=== PATIENT | male | born 1935 | race Two or more races ===

== ENCOUNTER 2019-12-14 07:16 | Inpatient (IN) | payer MEDICAID ==
[~2019-12-14] VITALS: Ht 170.2 cm; Wt 76.2 kg
--- NOTE | 2019-12-14 07:24 | NUR ---
PT SATTING 76% ON 6L/MIN NC. PLACED ON NON REBREATHER MASK ERMD DERDERIAN AWARE.
--- NOTE | 2019-12-14 07:25 | NUR ---
DR DEVRIES AT BEDSIDE FOR EVAL.
[2019-12-14 07:43] LABS: BASOPHILS % (AUTO) 0.2 % (0.0-2.0); HEMATOCRIT 43 % (39-51); HEMOGLOBIN 14.4 g/dL (13.5-17.5); LYMPHOCYTES # (AUTO) 0.6 /CMM (0.8-4.8); LYMPHOCYTES % (AUTO) 8.9 % (20.0-44.0); MEAN CORPUSCULAR HGB CONC 34 g/dl (31.0-36.0); MEAN CORPUSCULAR VOLUME 90 fL (80-96); MONOCYTES # (AUTO) 0.6 /CMM (0.1-1.30); MONOCYTES % (AUTO) 8.9 % (2.0-12.0); PLATELET COUNT (AUTO) 182 /CMM (150-450); RED BLOOD CELL COUNT(AUTO) 4.74 MIL/uL (4.5-6.0); WHITE BLOOD COUNT (AUTO) 7.3 K/uL (4.3-11.0)
--- NOTE | 2019-12-14 07:52 | NUR ---
RADIOLOGY AT BEDSIDE FOR CHEST XRAY.
[2019-12-14 07:57] LABS: CALCIUM, SERUM 8.2 mg/dL (8.5-10.1); CARBON DIOXIDE 21 mmol/L (21-32); CHLORIDE 88 mmol/L (98-107); CREATININE 1.1 mg/dL (0.6-1.3); GLUCOSE 224 mg/dL (74-106); SODIUM SERUM 121 mmol/L (136-145); UREA NITROGEN, BLOOD 26 mg/dL (7-18)
[2019-12-14 08:03] LABS: ALANINE AMINOTRANSFERASE 31 U/L (12-78); ALBUMIN 2.8 g/dL (3.4-5.0); ALKALINE PHOSPHATASE 96 U/L (46-116); ASPARTATE AMINOTRANSFERASE 62 U/L (15-37); BILIRUBIN,DIRECT 0.3 mg/dL (0.0-0.2); BILIRUBIN,TOTAL 0.7 mg/dL (0.2-1.0)
[2019-12-14] MEDS ORDERED: IV NS 0.9% 1,000 ML IV ONE (08:05)
[2019-12-14] MEDS ORDERED: CEFTRIAXONE 1GM BAG (ER ONLY) 50 ML IV ONE (08:12)
[2019-12-14] MEDS ORDERED: DEXAMETHASONE SOD PHOSPHATE 10 MG/ML VIAL ONE (08:12)
[2019-12-14] MEDS ORDERED: AZITHROMYCIN 500 MG in IV D5W 250 ML IV ONE (08:30)
[2019-12-14] MEDS ORDERED: CEFTRIAXONE 1 G in IV D5W 50 ML IV ONE (08:30)
[2019-12-14] MEDS ORDERED: DEXAMETHASONE SOD PHOSPHATE 10 MG/ML VIAL IV ONE (08:30)
--- NOTE | 2019-12-14 08:32 | NUR ---
PANEL ON-CALL PAGED
[2019-12-14] MEDS ORDERED: METF-442 PO (09:05)
[2019-12-14 09:17] LABS: C-REACTIVE PROTEIN 27.4 mg/dL (0.0-0.9)
--- NOTE | 2019-12-14 09:23 | NUR ---
room [id number]
[2019-12-14 09:38] LABS: APPEARANCE,URINE Clear (CLEAR); BILIRUBIN,URINE Negative (NEGATIVE); BLOOD, URINE Small Ery/uL (NEGATIVE); COLOR,URINE Yellow (YELLOW); KETONES,URINE 40 (NEGATIVE); LEUKOCYTE ESTERASE ,URINE Negative (NEGATIVE); NITRITE, URINE Negative (NEGATIVE); PH,URINE 5.5 (5.0-8.0); PROTEIN,URINE 100 mg/dl (NEGATIVE); UGLUCOSE 500 MG/DL mg/dL (NEGATIVE)
[2019-12-14 09:40] LABS: BACTERIA,URINE Few /HPF (None Seen); SQUAMOUS EPITHELIAL CELL,UR Few /HPF (None Seen)
--- NOTE | 2019-12-14 09:46 | NUR ---
Paty barry in [facility] - 12/14/19 at 1006 by VINOD REPORT GIVEN TO AMBER EDWARDS AWAITING TRANSFER TO [facility].
--- NOTE | 2019-12-14 09:46 | NUR ---
REPORT GIVEN TO AMBER JON. PT AWAITING TRANSFER TO FLOOR.
[2019-12-14] MEDS ORDERED: DEXTROSE 50%-WATER 50 ML DISP.SYRIN IV PRN (10:30)
[2019-12-14] MEDS ORDERED: ONDANSETRON HCL/PF 4 MG/2 ML VIAL IVP PRN (10:30)
[2019-12-14] MEDS ORDERED: MAG HYDROX/AL HYDROX/SIMETH 30 ML UDC PO PRN (10:30)
--- NOTE | 2019-12-14 10:30 | NUR ---
RN TELE1 - OPENING. REPORT RECIED FROM ER PATIENT A/O 1 MOROCCAN SPEAKING AT TIMES CONFUSED FOLLOWS COMMANDS. PATIENT ON ROUSTABOUT PUSHER IN THE 90S. PATIENT SIMPLE MASK 5L PATIENT HAS URINAL AT BED SIDE. R HAND 2 WITH 75 ML/HR NO SIGNS OF INFILTRATION PATIENT HAS BILATERAL CRACKELS WORSE ON THE RIGHT SIDE . BED LOCKED LOWEST POSITION CALL LIGHT WITH IN REACH AL LSAFETY MEASURES IMPLEMENTED PER HOSPITAL POLCY
[2019-12-14 11:00] VITALS: BP 123/71
[2019-12-14] MEDS: ENOXAPARIN SODIUM 40 MG/0.4 ML DISP.SYRIN SQ SCH (11:51)
[2019-12-14] MEDS: BLOOD SUGAR DIAGNOSTIC 1 EACH STRIP VI SCH ×3 (13:23→21:41)
[2019-12-14] MEDS: IV NS 0.9% 1,000 ML IV PRN ×2 (13:24→23:51)
[2019-12-14] MEDS: INSULIN REGULAR, HUMAN 100 UNIT/ML 3 ML VIAL SQ PRN ×2 (13:25→22:37)
[2019-12-14] MEDS: *INSULIN REGULAR(HUMULIN R)HUM 100 UNIT/ML VIAL SQ PRN (17:47)
--- NOTE | 2019-12-14 18:26 | NUR ---
RN TELE1 NO SIGNIFICANT CHANGE ON PATIENT CONDITION, NO PAIN AT THIS TIME , PATIENT SATURATING >95 % . VITALS STABLE AT THIS TIME BED LOCKED LOWEST POSITION CALL LIGHT WITH IN REACH ALL SAFEY MEASUURES IMPLEMENTED PER HOSPITAL POLICY
--- NOTE | 2019-12-14 19:50 | NUR ---
RN OPENING NOTE RECEIVED PT IN BED RESTING COMFORTABLY. AOX4, SPEAKS BULGARIAN ONLY, RESPONDS APPROPRIATELY. PATIENT IN NO S/SX OF ACUTE DISTRESS AT THIS TIME. PATIENT'S BREATHING IS EVEN AND UNLABORED. PATIENT IS ON 5 L OF OXYGEN VIA MASK; TOLERATING WELL. PATIENT ON TELE MONITOR READING SR, HR IS @90. ABLE TO CONSUME ABOUT 100% OF MEAL. NOTED IV SITE ON RIGHT HAND G20 WITH NS 1L RUNNING AT 75 ML/HR; PATENT AND FLUSHING WELL,NO S/S OF INFECTION OR INFILTRATION. SAFETY MEASURES IMPLEMENTED PER PROTOCOL. PATIENT BED ALARM IS ON. HEAD OF BED ELEVATED. BED IS LOCKED, IN LOWEST POSITION AND SIDE RAILS UP. CALL LIGHT WITHIN REACH OF THE PATIENT. WILL CONTINUE TO MONITOR AND REASSESS FOR ANY CHANGES.
[2019-12-14 20:00] VITALS: BP 125/75
[2019-12-14 20:26] VITALS: BP 125/75
--- NOTE | 2019-12-14 21:30 | NUR ---
2129 SUMMONED TO PATIENT'S ROOM BY PRIMARY NURSE, PATIENT SITTING UP IN BED, NOTED WITH O2 SATURATION OF 77% ON FACE MASK AT 5LPM. PATIENT ASYMPTOMATIC, NO C/O SHORTNESS OF BREATH WHEN ASKED THRU ENCODING MACHINE OPERATOR, BREATHING EVEN AND UNLABORED WITH RR 18. CHANGED PULSE OXIMETER TO ASSURE IT'S WORKING PROPERLY. STILL NOTED WITH LOW SATURATION IN THE 70S WITH GOOD WAVEFORM NOTED ON VITAL SIGNS MACHINE. PLACED PT ON 100% NRM AND ENCOURAGED PATIENT TO DO DEEP BREATHING EXERCISES. SATURATION NOTED IN THE LOW 80S BUT PATIENT CONT. TO DENY SOB AND WAS ABLE TO SPEAK TO HIS DAUGHTER THRU FACETIME WITHOUT ANY DIFFICULTY. KEPT ON HIGH CHATMAN'S POSITION FOR MAXIMUM OXYGENATION. CLOSELY MONITORING PATIENT.
--- NOTE | 2019-12-14 21:55 | NUR ---
5017 PATIENT WATCHING TV AT THIS TIME. NO SIGNS OF SOB AND CONT. TO DENY DIFFICULTY BREATHING WHEN ASKED. BREATHING EVEN AN UNLABORED. O2 SATURATION NOTED IN THE 80S ON NRM. PAGED EPIC OXYGEN EQUIPMENT TECHNICIAN AT THIS TIME. AWAITING CALL BACK.
--- NOTE | 2019-12-14 22:28 | NUR ---
2228 DR BRUCE CALLED AND MADE AWARE OF PATIENT CONDITION WITH NO ORDER, HE SAID TO CONTINUE TO MONITOR PATIENT.
[2019-12-14 22:49] LABS: URINE TOTAL PROTEIN 75.7 mg/dL (0-11.9)
--- NOTE | 2019-12-14 23:35 | NUR ---
2762 DR JEAN WAS NOTIFIED THAT PATIENT IS TACHYPNEIC NOW BREATHING IN THE 20S WITH O2 SATURATION STILL IN THE 80S ON NRM WITH ORDER TO DO STAT ABG. ORDER NOTED. RT BRIAN MADE AWARE. PATIENT REMAINS ON HIGH FOWLERS POSITION FOR MAXIMUM OXYGENATION. REMAINS VERBALLY RESPONSIVE WITH NO SIGNS OF DISTRESS NOTED.
[2019-12-15] VITALS (35 sets, daily range): BP systolic 87–162; BP diastolic 54–114
--- NOTE | 2019-12-15 00:13 | NUR ---
RT note late entry ABG taken critical results noted, ABG results given to charged RN, ABG results 7.46 27 52 19 SAO2 88
--- NOTE | 2019-12-15 00:15 | NUR ---
RN NOTE LATEST BP 152/84, HR 103
--- NOTE | 2019-12-15 00:15 | NUR ---
0015 LATEST BP 152/84, HR 103, SATURATION AT 80'S WITH REBREATHER MASK AT 15LPM. ENDORSED TO ELIZABETH RN FOR CONTINUATION OF CARE
--- NOTE | 2019-12-15 00:20 | NUR ---
0020 DR JEAN WAS NOTIFIED OF STAT ABG RESULT WITH ORDER TO TRANSFER TO ICU FOR INTUBATION. ORDER NOTED, ICU CHARGE NURSE NINI NOTIFIED, LATA LAWSON NOTIFIED AND WILL CALL ER DOCTOR FOR INTUBATION.
--- NOTE | 2019-12-15 00:35 | NUR ---
0035 PATIENT MADE AWARE OF DOCTOR'S ORDER TO TRANSFER HIM TO ICU VIA RESEARCH TECHNOLOGIST.
[2019-12-15] MEDS ORDERED: PROPOFOL 100 ML IV PRN (01:00)
--- NOTE | 2019-12-15 01:02 | NUR ---
0102 TRANSFERRED PATIENT TO ICU VIA BED ON ACLS PROTOCOL. PATIENT AWAKE AND VERBALLY RESPONSIVE. NO SIGNS OF DISTRESS NOTED.
--- NOTE | 2019-12-15 01:03 | NUR ---
RN NOTE RECEIVED PT FROM DONTRELL MART FOR CONTINUATION OF CARE.
--- NOTE | 2019-12-15 01:30 | NUR ---
RN NOTE PT WAS SEEN AND EXAMINED BY BRITTNI RIGGINS (ER DOCTOR). MD ASSESSED PT AND LOOKED OVER ABG RESULT. SPOKE TO PT ABOUT POSSIBLE INTUBATION. PT REFUSED INTUBATION DESPITE EXPLANATION OF ADVANTAGES VS RISKS. PT CURRENTLY SATTING AT 88-93% WHILE ON 15L NON REBREATHER. PER MD, OKAY TO PUT PT ON HI FLOW FOR NOW AND DO REPEAT ABG IN 1 HOUR. PT PUT ON HI FLOW 60L AND 100% FIO2. NOTIFIED DR. JEAN ABOUT PT'S CURRENT CONDITION. FAMILY NOTIFIED ABOUT PT'S STATUS.
--- NOTE | 2019-12-15 02:53 | NUR ---
RN NOTE 2ND ABG RESULTED. NOTED WITH SLIGHTLY WORSE PO2. PT CURRENTLY AWAKE AND ALERT AND WITHOUT SIGNS OF RESPIRATORY DISTRESS. CURRENTLY ON HI FLOW 60L AND FIO2 OF 100%. O2 SATURATION 93%. PT STILL REFUSING TO BE INTUBATED DESPITE EXPLANATION OF RISKS VS BENEFITS. NOTIFIED DR. JEAN.
--- NOTE | 2019-12-15 03:00 | NUR ---
RN NOTE DR. JEAN AWARE WITH NO NEW ORDERS AT THIS TIME. WILL CONTINUE TO MONITOR.
--- NOTE | 2019-12-15 03:38 | NUR ---
RT NOTE PRIMARY NURSE AND CHARGED NURSE AWARE OF ABG RESULTS FROM 12/15/2019 @ 0244. CURRENTLY WAITING FOR FURTHER ORDERS. PATIENT IS CURRENTLY TOLERATING HIGH FLOW NASAL CANNULA. NO SIGNS OF RESPIRATORY DISTRESS NOTED AT THIS TIME. SPO2 RANGE FROM 94-96% AT THIS TIME. EMERGENCY EQUIPMENT IS AT PATIENT BEDSIDE. WILL CONTINUE TO MONITOR. Addendum: 12/15/19 at 0627 by SARAH CONLEY RT Amended: Links added.
[2019-12-15 06:54] LABS: BASOPHILS % (AUTO) 0.1 % (0.0-2.0); HEMATOCRIT 40 % (39-51); HEMOGLOBIN 13.8 g/dL (13.5-17.5); LYMPHOCYTES # (AUTO) 0.6 /CMM (0.8-4.8); LYMPHOCYTES % (AUTO) 5.8 % (20.0-44.0); MEAN CORPUSCULAR HGB CONC 34 g/dl (31.0-36.0); MEAN CORPUSCULAR VOLUME 89 fL (80-96); MONOCYTES # (AUTO) 0.7 /CMM (0.1-1.30); MONOCYTES % (AUTO) 7.7 % (2.0-12.0); NEUTROPHILS # (AUTO) 8.3 /CMM (1.8-8.9); NEUTROPHILS % (AUTO) 86.4 % (43.0-81.0); PLATELET COUNT (AUTO) 232 /CMM (150-450); RED BLOOD CELL COUNT(AUTO) 4.57 MIL/uL (4.5-6.0); WHITE BLOOD COUNT (AUTO) 9.6 K/uL (4.3-11.0)
[2019-12-15 06:55] LABS: CREATININE 0.7 mg/dL (0.6-1.3); MAGNESIUM 1.5 mg/dL (1.8-2.4); PHOSPHORUS 2.1 mg/dL (2.5-4.9); POTASSIUM 4.1 mmol/L (3.5-5.1)
--- NOTE | 2019-12-15 07:30 | NUR ---
FACING SLITTER INITIAL NOTE RECEIVED PATIENT AWAKE, ALERT AND ORIENTED, FOLLOWS SIMPLE INSTRUCTIONS. NO DISTRESS NOTED. DENIES PAIN OR DISCOMFORT. ON HIGH FLOW AND NON-REBREATHER MASK. SINUS TACHY ON MONITOR. BILATERAL WRIST RESTRAINTS IN PLACE, REMOVED, WILL MONITOR CLOSELY. SKIN WARM AND DRY TO TOUCH. IVF RUNNING. ISOLATION PRECAUTIONS OBSERVED. SIDE RAILS UP AND LOCKED. BED KEPT AT LOWEST POSITION. CALL LIGHT KEPT WITHIN EASY REACH. WILL CONTINUE TO MONITOR.
--- NOTE | 2019-12-15 07:38 | NUR ---
WOUND CARE CONSULT: REVIEWED CHART, NURSING DOCUMENTATION AND PHOTOS WHICH SHOW LOWER EXTREMITY SCARRING/UNEVEN PIGMENTATION AND LEFT HAND SKIN TEAR WITH SURROUNDING DISCOLORATION, PRESENT ON ADMISSION. PT NOTED TO BE MOVING EXTREMITIES IN BED. RECOMMENDATIONS MADE FOR SKIN PROTECTION AND WOUND CARE. DISCUSSED WITH NURSING STAFF. WILL SEE PRN. CURRENT ROSENDO SCORE IS 14. MD IN AGREEMENT WITH PLAN OF CARE.
[2019-12-15] MEDS: CEFTRIAXONE 1 G in IV D5W 50 ML IV SCH (07:52)
[2019-12-15] MEDS: BLOOD SUGAR DIAGNOSTIC 1 EACH STRIP VI SCH ×4 (08:17→22:13)
[2019-12-15] MEDS: INSULIN REGULAR, HUMAN 100 UNIT/ML 3 ML VIAL SQ PRN ×3 (08:19→18:28)
[2019-12-15] MEDS: ENOXAPARIN SODIUM 40 MG/0.4 ML DISP.SYRIN SQ SCH (08:20)
--- NOTE | 2019-12-15 08:23 | NUR ---
multicultural internship note with engine assembly supervisor dr margarita syed spoke with patient regarding intubation. patient agreed to intubation if needed. will continue to monitor.
[2019-12-15] MEDS: DEXAMETHASONE SOD PHOSPHATE 10 MG/ML VIAL IV SCH (08:25)
[2019-12-15 08:26] LABS: ABG BASE EXCESS -2.3 mmol/L; ABG OXYGEN SATURATION 84.9 % (92.0-98.5); ABG PCO2 28.2 mmHg (35.0-45.0); ABG PH 7.469 (7.350-7.450); ABG PO2 47.9 mmHg (75.0-100.0); AaDO2 636.9 mmHg; COHb 0.7 % (0.5-1.5); MetHb 0.3 % (0.0-1.5); O2Hb 84.1 % (94.0-97.0); SITE, ABG Right Brachial; VENT MODE, BG HFNC
[2019-12-15 08:26] LABS: ABG PCO2 27.7 mmHg (35.0-45.0); ABG PH 7.461 (7.350-7.450); ABG PO2 52.4 mmHg (75.0-100.0); AaDO2 632.9 mmHg; COHb 0.9 % (0.5-1.5); MetHb 0.3 % (0.0-1.5); SITE, ABG Left Brachial
--- NOTE | 2019-12-15 08:30 | NUR ---
BAKERY CHEF NOTE PATIENT ATTEMPTING TO GET OUT OF BED, REORIENTED. REMOVING MONITORING DEVICES, BILATERAL WRIST RESTRAINTS PLACED BACK ON. WILL CONTINUE TO MONITOR.
[2019-12-15] MEDS: AZITHROMYCIN 500 MG in IV D5W 250 ML IV SCH (08:57)
[2019-12-15] MEDS: Magnesium 1GM/D5W 100ML PREMIX 100 ML IV SCH ×2 (10:19→11:01)
[2019-12-15] MEDS ORDERED: DEXAMETHASONE SOD PHOSPHATE 10 MG/ML VIAL IV SCH (11:00)
--- NOTE | 2019-12-15 11:00 | NUR ---
FLATWORK ASSEMBLER NOTE ABG RELAYED TO DR VÁSQUEZ WITH ORDER FOR INTUBATION. SON MOY INFORMED, WITH SCHOOL COOK USED. SON VERBALIZED UNDERSTANDING.
--- NOTE | 2019-12-15 11:09 | NUR ---
ENGINEERING AND OPERATIONS DIRECTOR NOTE UPDATES ALSO GIVEN TO GRANDDAUGHTER AREN
--- NOTE | 2019-12-15 11:50 | NUR ---
SOFTWARE ASSET MANAGER NOTE DR FRANCISCO INTUBATED PATIENT 7.5CMG 23CM AT THE LIP WITH NO COMPLICATIONS. WILL CONTINUE TO MONITOR.
[2019-12-15] MEDS: PROPOFOL 100 ML IV PRN ×3 (12:00→22:12)
[2019-12-15] MEDS: NEUTRA PHOS 1 POWD.PACKET PO SCH ×2 (13:13→21:05)
[2019-12-15] MEDS ORDERED: ROCURONIUM BROMIDE 50 MG/5 ML IV ONE (14:52)
[2019-12-15] MEDS ORDERED: ETOMIDATE 2 MG/ML VIAL IV ONE (14:52)
[2019-12-15 15:23] LABS: ABG BASE EXCESS -3.1 mmol/L; ABG OXYGEN SATURATION 98.5 % (92.0-98.5); ABG PCO2 35.7 mmHg (35.0-45.0); ABG PH 7.391 (7.350-7.450); ABG PO2 143.8 mmHg (75.0-100.0); AaDO2 533.5 mmHg; COHb 0.5 % (0.5-1.5); PEEP,BG 10 cm H2O; SITE, ABG Right Radial; VT, ABG 500 mL
[2019-12-15 18:49] LABS: THYROID STIMULATING HORMONE 0.453 uIU/mL (0.358-3.74); URIC ACID 3.1 mg/dL (2.6-7.2)
[2019-12-15] MEDS: IV NS 0.9% 1,000 ML IV PRN (18:54)
--- NOTE | 2019-12-15 19:15 | NUR ---
RN OPENING NOTE: PATIENT IN BED, SEDATED, AND INTUBATED. TOLERATING CURRENT VENT SETTINGS WELL. NO RESPIRATORY DISTRESS. NO S/S OF PAIN. ON BEDSIDE MONITOR, SHOWING NSR. ON BILATERAL SOFT WRIST RESTRAINTS. ASSESSED SKIN FOR CIRCULATION. BED LOCKED, LOW POSITION, SIDE RAILS X 2 UP. HOB ELEVATED. WILL TURN AND REPOSITION Q2H FOR SKIN INTEGRITY. WILL CONT. TO MONITOR.
[2019-12-15 19:16] LABS: C-REACTIVE PROTEIN 17.1 mg/dL (0.0-0.9)
[2019-12-15] MEDS ORDERED: NEUTRA PHOS 1 POWD.PACKET ONE (21:04)
[2019-12-15] MEDS: *INSULIN REGULAR(HUMULIN R)HUM 100 UNIT/ML VIAL SQ PRN (22:18)
[2019-12-16] VITALS (61 sets, daily range): BP systolic 79–157; BP diastolic 49–113
[2019-12-16] MEDS: PROPOFOL 100 ML IV PRN ×4 (03:10→19:55)
[2019-12-16] MEDS: IV NS 0.9% 1,000 ML IV PRN ×2 (04:22→18:24)
[2019-12-16 04:50] LABS: BASOPHILS % (AUTO) 0.1 % (0.0-2.0); HEMATOCRIT 36 % (39-51); HEMOGLOBIN 12.7 g/dL (13.5-17.5); LYMPHOCYTES # (AUTO) 0.5 /CMM (0.8-4.8); LYMPHOCYTES % (AUTO) 5.3 % (20.0-44.0); MEAN CORPUSCULAR HGB CONC 35 g/dl (31.0-36.0); MEAN CORPUSCULAR VOLUME 89 fL (80-96); MONOCYTES # (AUTO) 0.5 /CMM (0.1-1.30); MONOCYTES % (AUTO) 5.3 % (2.0-12.0); NEUTROPHILS # (AUTO) 8.2 /CMM (1.8-8.9); NEUTROPHILS % (AUTO) 89.3 % (43.0-81.0); PLATELET COUNT (AUTO) 219 /CMM (150-450); RED BLOOD CELL COUNT(AUTO) 4.02 MIL/uL (4.5-6.0); WHITE BLOOD COUNT (AUTO) 9.2 K/uL (4.3-11.0)
--- NOTE | 2019-12-16 06:40 | NUR ---
RN CLOSING NOTES: PATIENT IN BED, SEDATED, AND INTUBATED. TOLERATING CURRENT VENT SETTINGS WELL. UNLABORED BREATHING. NO S/S OF PAIN. BED LOCKED, LOW POSITION, SIDE RAILS X 2 UP. HOB ELEVATED. TURNED AND REPOSITIONED Q2H FOR SKIN INTEGRITY. WILL ENDORSE TO AM SHIFT NURSE FOR CONTINUITY OF CARE.
--- NOTE | 2019-12-16 07:41 | NUR ---
ICU/RN INITIAL NOTES,AM RECEIVED REPORT FROM NIGHT NURSE. PT INTUBATED AND SEDATED. ETT 7.5/23 CM AT THE LIP. PT ON VENT SETTINGS ORDERED BY MD, NO ACUTE DISTRESS NOTED. PT ON TELE, SINUS. GORDON CATH IN PLACE, DRAINING URINE. OG TUBE IN PLACE, CLAMPED, PLACEMENT VERIFIED. PIVS PATENT AND INTACT, NO S/S OF INFECTION OR INFILTRATION NOTED. DIPRIVAN INFUSING FOR SEDATION, WILL DO SEDATION VACATION. ALL NEEDS WILL BE ATTENDED TO, SAFETY MEASURES TAKEN, BED IN LOW POSITION, SIDE RIALS UP, BILATERAL WRIST RESTRAINTS ASSESSED PER PROTOCOL.
--- NOTE | 2019-12-16 08:20 | NUR ---
ICU/RN: SEDATION VACATION DONE. PT OPENS EYES, FOLLOWS COMMANDS. WILL RESUME SEDATION NEEDED.
--- NOTE | 2019-12-16 08:30 | NUR ---
ICU/RN: RESULTS RECEIVED FOR COVID POSITIVE. PRIMARY AND ID NOTIFIED.
[2019-12-16] MEDS: DEXAMETHASONE SOD PHOSPHATE 10 MG/ML VIAL IV SCH (08:31)
[2019-12-16] MEDS: ENOXAPARIN SODIUM 40 MG/0.4 ML DISP.SYRIN SQ SCH (08:32)
[2019-12-16] MEDS: CEFTRIAXONE 1 G in IV D5W 50 ML IV SCH (08:32)
[2019-12-16] MEDS: BLOOD SUGAR DIAGNOSTIC 1 EACH STRIP VI SCH (08:33)
[2019-12-16] MEDS: AZITHROMYCIN 500 MG in IV D5W 250 ML IV SCH (09:00)
[2019-12-16 09:03] LABS: CALCIUM, SERUM 7.1 mg/dL (8.5-10.1); CREATININE 0.7 mg/dL (0.6-1.3)
[2019-12-16 09:09] LABS: ALBUMIN 2.2 g/dL (3.4-5.0); BILIRUBIN,TOTAL 0.6 mg/dL (0.2-1.0); MAGNESIUM 2.1 mg/dL (1.8-2.4); PHOSPHORUS 2.5 mg/dL (2.5-4.9); TOTAL PROTEIN, SERUM 5.9 g/dL (6.4-8.2)
[2019-12-16] MEDS ORDERED: DEXTROSE 50%-WATER 50 ML DISP.SYRIN IV PRN (10:30)
[2019-12-16 11:49] LABS: ABG BASE EXCESS 1.1 mmol/L; ABG OXYGEN SATURATION 97.7 % (92.0-98.5); ABG PCO2 32.1 mmHg (35.0-45.0); ABG PH 7.489 (7.350-7.450); ABG PO2 107.3 mmHg (75.0-100.0); AaDO2 321.2 mmHg; COHb 0.3 % (0.5-1.5); MetHb 0.3 % (0.0-1.5); O2Hb 97.1 % (94.0-97.0); PEEP,BG 10 cm H2O; SITE, ABG Right Radial; VT, ABG 500 mL
[2019-12-16] MEDS: BLOOD SUGAR DIAGNOSTIC 1 EACH STRIP IN SCH ×2 (12:58→17:45)
[2019-12-16] MEDS: INSULIN REGULAR, HUMAN 100 UNIT/ML 3 ML VIAL SQ PRN ×2 (13:08→17:46)
[2019-12-16] MEDS: GLUCERNA 1.2 1,000 ML BOTTLE GT PRN (17:27)
--- NOTE | 2019-12-16 17:48 | NUR ---
RT NOTE Pt received on vent via ett on ordered settings. Vent is plugged into red outlet w alarms set and audible. Pt is stable. No respiratory distress noted t/o shift. Addendum: 12/16/19 at 1819 by MYNOR CATES RT Amended: Links added.
[2019-12-16] MEDS ORDERED: INVESTIGATIONAL MED MISC 1 EA in IV NS 0.9% 250 ML IV ONE (18:00)
--- NOTE | 2019-12-16 18:30 | NUR ---
ICU/RN: REMDESIVIR STARTED AT 1818, VSS, NO ADVERSE REACTIONS NOTED. WILL CONTINUE TO MONITOR
--- NOTE | 2019-12-16 18:59 | NUR ---
ICU/RN: ENDING NOTES,AM REPORT WILL BE ENDORSED TO NIGHT NURSE FOR KEN. PT INTUBATED AND SEDATED, ON VENT SETTINGS ORDERED, NO ACUTE DISTRESS NOTED. SINUS ON TELE. REMDESIVIR INFUSING, NO S/S OF ADVERSE REACTIONS NOTED. GORDON IN PLACE DRAINING YELLOW URINE. DIPRIVAN AT 30 MCG/KG/MIN. ALL NEEDS ATTENDED, SAFETY MEASURES TAKEN, BED IN LOW POSITION, SIDE RAILS UP, CALL LIGHT WITHIN REACH. BILATERAL SOFT WRIST RESTRAINTS IN PLACE, ASSESSED PER PROTOCOL. WILL CONTINUE CARE.
[2019-12-17] VITALS (50 sets, daily range): BP systolic 98–147; BP diastolic 56–92
[2019-12-17] MEDS: BLOOD SUGAR DIAGNOSTIC 1 EACH STRIP IN SCH ×4 (01:24→18:51)
[2019-12-17] MEDS: INSULIN REGULAR, HUMAN 100 UNIT/ML 3 ML VIAL SQ PRN ×4 (01:27→18:52)
[2019-12-17] MEDS: PROPOFOL 100 ML IV PRN ×5 (02:55→20:01)
[2019-12-17 04:53] LABS: BASOPHILS % (AUTO) 0.3 % (0.0-2.0); HEMATOCRIT 38 % (39-51); HEMOGLOBIN 14.2 g/dL (13.5-17.5); LYMPHOCYTES # (AUTO) 0.6 /CMM (0.8-4.8); LYMPHOCYTES % (AUTO) 7.7 % (20.0-44.0); MEAN CORPUSCULAR HGB CONC 37 g/dl (31.0-36.0); MEAN CORPUSCULAR VOLUME 91 fL (80-96); MONOCYTES # (AUTO) 0.4 /CMM (0.1-1.30); NEUTROPHILS # (AUTO) 6.9 /CMM (1.8-8.9); PLATELET COUNT (AUTO) 221 /CMM (150-450); RED BLOOD CELL COUNT(AUTO) 4.17 MIL/uL (4.5-6.0)
[2019-12-17 06:03] LABS: ALANINE AMINOTRANSFERASE 38 U/L (12-78); ALBUMIN 2.1 g/dL (3.4-5.0); ALKALINE PHOSPHATASE 100 U/L (46-116); ASPARTATE AMINOTRANSFERASE 57 U/L (15-37); BILIRUBIN,DIRECT 0.2 mg/dL (0.0-0.2); BILIRUBIN,TOTAL 0.7 mg/dL (0.2-1.0); CALCIUM, SERUM 7.4 mg/dL (8.5-10.1); CARBON DIOXIDE 22 mmol/L (21-32); CHLORIDE 99 mmol/L (98-107); CREATININE 0.5 mg/dL (0.6-1.3); FERRITIN 258 ng/mL (8-388); GLUCOSE 166 mg/dL (74-106); PHOSPHORUS 2.3 mg/dL (2.5-4.9); POTASSIUM 3.8 mmol/L (3.5-5.1); SODIUM SERUM 130 mmol/L (136-145); TOTAL PROTEIN, SERUM 5.9 g/dL (6.4-8.2); UREA NITROGEN, BLOOD 16 mg/dL (7-18)
[2019-12-17] MEDS: IV NS 0.9% 1,000 ML IV PRN ×2 (06:06→11:58)
[2019-12-17 06:16] LABS: C-REACTIVE PROTEIN 6.3 mg/dL (0.0-0.9)
--- NOTE | 2019-12-17 06:41 | NUR ---
RN notes In bed, comfortably resting with no apparent distress. Breathing even and unlabored. Vent setting well tolerated. No physical manifestation of pain or discomfort. Vital signs wnl. NO significant change of condition. Will endorse to next shift for continuity of care.
--- NOTE | 2019-12-17 06:45 | NUR ---
RN notes In bed, sedated with no apparent distress. Breathing even and unlabored. Vent setting well tolerated. No physical manifestation of pain or discomfort. Vital signs wnl. On diprivan drip at 30mcg/kg/hr tolerating well, no adverse effect noted. No significant change of condition. Will endorse to next shift for continuity of care.
[2019-12-17] MEDS: CEFTRIAXONE 1 G in IV D5W 50 ML IV SCH (08:14)
[2019-12-17] MEDS: DEXAMETHASONE SOD PHOSPHATE 10 MG/ML VIAL IV SCH (08:15)
[2019-12-17] MEDS: ENOXAPARIN SODIUM 40 MG/0.4 ML DISP.SYRIN SQ SCH (08:15)
[2019-12-17] MEDS: AZITHROMYCIN 500 MG in IV D5W 250 ML IV SCH (09:17)
[2019-12-17] MEDS ORDERED: NEUTRA PHOS 1 POWD.PACKET NG ONE (11:30)
[2019-12-17 12:52] LABS: ABG BASE EXCESS 0.1 mmol/L; ABG OXYGEN SATURATION 95.1 % (92.0-98.5); ABG PCO2 33.1 mmHg (35.0-45.0); ABG PH 7.463 (7.350-7.450); ABG PO2 71.4 mmHg (75.0-100.0); AaDO2 356.1 mmHg; COHb 0.7 % (0.5-1.5); MetHb 0.3 % (0.0-1.5); O2Hb 94.1 % (94.0-97.0); PEEP,BG 10 cm H2O; SITE, ABG Right Radial; VENT MODE, BG AC 22 500 65% +10
[2019-12-17] MEDS ORDERED: INVESTIGATIONAL MED MISC 1 EA in IV NS 0.9% 250 ML IV SCH (18:00)
[2019-12-17] MEDS: INVESTIGATIONAL MED MISC 1 EA in IV NS 0.9% 250 ML IV SCH (18:51)
--- NOTE | 2019-12-17 19:02 | NUR ---
END OF SHIFT NOTE: PT HAD AN UNEVENTFUL SHIFT. PT WAS WIDE AWAKE THIS AM, APPEARS TO BE A LITTLE SCARED, SEDATION INCREASED. PT APPEARED CALM THE REST OF THE SHIFT. NO SEDATION VACATION DONE D/T PT BEING WIDE AWAKE THIS AM. REMDESIVIR INFUSING AT THIS TIME, WILL ENDORSE TO THE NEXT SHIFT. NO BM THIS SHIFT. PT CHECKED ON HOURLY AND PRN BY NURSING STAFF.
--- NOTE | 2019-12-17 20:41 | NUR ---
RECEIVED PT INTUBATED ON VENT. 7.5 ETT SECURED AT 23CM AT THE LIP. NO RESP DISTRESS NOTED. PT TOLERATING VENT SETTINGS. SX'D FOR SML AMT OF THICK WHITE SECRETIONS. VENT ALARMS SET AND AUDIBLE. CONTINUE [facility] VENT SUPPORT. Addendum: 12/17/19 at 2042 by SARIAH PIERSON RT Amended: Links added.
[2019-12-18] VITALS (44 sets, daily range): BP systolic 70–153; BP diastolic 45–94
[2019-12-18] MEDS: PROPOFOL 100 ML IV PRN ×6 (00:10→23:13)
[2019-12-18] MEDS: INSULIN REGULAR, HUMAN 100 UNIT/ML 3 ML VIAL SQ PRN ×4 (01:00→18:45)
[2019-12-18] MEDS: BLOOD SUGAR DIAGNOSTIC 1 EACH STRIP IN SCH ×4 (01:01→18:43)
[2019-12-18 04:32] LABS: BASOPHILS % (AUTO) 0.1 % (0.0-2.0); EOSINOPHILS % (AUTO) 0.2 % (0.0-6.0); HEMATOCRIT 42 % (39-51); HEMOGLOBIN 14.3 g/dL (13.5-17.5); LYMPHOCYTES # (AUTO) 0.7 /CMM (0.8-4.8); LYMPHOCYTES % (AUTO) 7.8 % (20.0-44.0); MEAN CORPUSCULAR HGB CONC 34 g/dl (31.0-36.0); MEAN CORPUSCULAR VOLUME 90 fL (80-96); MONOCYTES # (AUTO) 0.4 /CMM (0.1-1.30); MONOCYTES % (AUTO) 4.8 % (2.0-12.0); NEUTROPHILS # (AUTO) 7.9 /CMM (1.8-8.9); NEUTROPHILS % (AUTO) 87.1 % (43.0-81.0); PLATELET COUNT (AUTO) 231 /CMM (150-450); RED BLOOD CELL COUNT(AUTO) 4.67 MIL/uL (4.5-6.0); WHITE BLOOD COUNT (AUTO) 9.1 K/uL (4.3-11.0)
[2019-12-18 04:54] LABS: C-REACTIVE PROTEIN 12.2 mg/dL (0.0-0.9)
[2019-12-18 05:02] LABS: ALBUMIN 2.2 g/dL (3.4-5.0); BILIRUBIN,DIRECT 0.2 mg/dL (0.0-0.2); BILIRUBIN,TOTAL 0.6 mg/dL (0.2-1.0); CALCIUM, SERUM 7.9 mg/dL (8.5-10.1); CREATININE 0.7 mg/dL (0.6-1.3); PHOSPHORUS 2.4 mg/dL (2.5-4.9); POTASSIUM 3.4 mmol/L (3.5-5.1)
[2019-12-18] MEDS: IV NS 0.9% 1,000 ML IV PRN (06:18)
--- NOTE | 2019-12-18 06:31 | NUR ---
RN notes Patient is sedated, resting comfortably in bed. No respiratory distress noted at the beginning of shift. Breathing even and unlabored. Vent setting well tolerated. No physical manifestation of pain or discomfort. Vital signs wnl. Noted at 0500, patient's O2sat flactuates between 89 to 94%. Noted abdominal breathing. suction moderate amount of secretion. Head of bed elevated. On diprivan drip at 50mcg/kg/hr tolerating well, no adverse effect noted. Will endorse to next shift for continuity of care.
[2019-12-18] MEDS: CEFTRIAXONE 1 G in IV D5W 50 ML IV SCH (08:26)
[2019-12-18] MEDS: AZITHROMYCIN 250 MG TABLET PO SCH (08:27)
[2019-12-18] MEDS: DEXAMETHASONE SOD PHOSPHATE 10 MG/ML VIAL IV SCH (08:27)
[2019-12-18] MEDS: ENOXAPARIN SODIUM 40 MG/0.4 ML DISP.SYRIN SQ SCH (08:29)
[2019-12-18] MEDS ORDERED: POTASSIUM CHLORIDE 20 MEQ POWDER PACKET NG SCH (09:30)
[2019-12-18] MEDS ORDERED: NEUTRA PHOS 1 POWD.PACKET GT ONE (12:00)
[2019-12-18 12:19] LABS: ABG BASE EXCESS 1.3 mmol/L; ABG OXYGEN SATURATION 90.3 % (92.0-98.5); ABG PCO2 39.5 mmHg (35.0-45.0); ABG PO2 58.2 mmHg (75.0-100.0); AaDO2 470.7 mmHg; COHb 0.9 % (0.5-1.5); MetHb 0.3 % (0.0-1.5); O2Hb 89.2 % (94.0-97.0); SITE, ABG Right Radial; VENT MODE, BG AC 22 500 80% +10
[2019-12-18] MEDS: INVESTIGATIONAL MED MISC 1 EA in IV NS 0.9% 250 ML IV SCH (18:44)
--- NOTE | 2019-12-18 18:59 | NUR ---
END OF SHIFT NOTE: PT HAD AN UNEVENTFUL SHIFT. O2 HAS BEEN AT 80% THIS ENTIRE SHIFT. NO SEDATION VACATION TODAY PER MD ORDERS. NO BM THIS SHIFT. TOTAL URINE OUTPUT WAS 850ML. 3 DOSE OF REMDESIVIR IS INFUSING AT THIS TIME. WILL ENDORSE TO NEXT SHIFT. PT CHECKED ON HOURLY AND PRN BY NURSING STAFF.
--- NOTE | 2019-12-18 19:30 | NUR ---
HARMONIC ANALYST OPENING NOTES, RECEIVED PATIENT IN BED INTUBATED/SEDATED, TOLERATING VENT SETTING WELL, NO SOB OR ACUTE DISTRESS NOTED AST THIS TIME. NO SIGH IF PAIN NOTED. IV ON R HAND RUNNING DIPRIVAN @50MCG/KG/MIN, AND LFA#20 RUNNING NS @40ML/HR. TOLERATING WELL, IV SITE CLEAR AND NO S/S OF INFILTRATION. ISOLATED FOR COVID (+). HOB ELEVATED. BED IN LOW/LOCKED POSITION, SR UPX2. WILL CONTINUE TO MONITOR THE PATIENT CLOSELY.
[2019-12-19] VITALS (53 sets, daily range): BP systolic 62–152; BP diastolic 37–86
[2019-12-19] MEDS: BLOOD SUGAR DIAGNOSTIC 1 EACH STRIP IN SCH ×5 (00:13→23:55)
[2019-12-19] MEDS: INSULIN REGULAR, HUMAN 100 UNIT/ML 3 ML VIAL SQ PRN ×5 (00:15→23:58)
[2019-12-19] MEDS: PROPOFOL 100 ML IV PRN ×6 (02:08→21:20)
[2019-12-19 04:31] LABS: BASOPHILS % (AUTO) 0.1 % (0.0-2.0); EOSINOPHILS % (AUTO) 0.5 % (0.0-6.0); HEMATOCRIT 41 % (39-51); HEMOGLOBIN 13.7 g/dL (13.5-17.5); LYMPHOCYTES # (AUTO) 0.8 /CMM (0.8-4.8); LYMPHOCYTES % (AUTO) 6.4 % (20.0-44.0); MEAN CORPUSCULAR HGB CONC 33 g/dl (31.0-36.0); MEAN CORPUSCULAR VOLUME 91 fL (80-96); MONOCYTES # (AUTO) 0.6 /CMM (0.1-1.30); MONOCYTES % (AUTO) 5.5 % (2.0-12.0); NEUTROPHILS # (AUTO) 10.2 /CMM (1.8-8.9); NEUTROPHILS % (AUTO) 87.5 % (43.0-81.0); PLATELET COUNT (AUTO) 198 /CMM (150-450); RED BLOOD CELL COUNT(AUTO) 4.54 MIL/uL (4.5-6.0); WHITE BLOOD COUNT (AUTO) 11.7 K/uL (4.3-11.0)
[2019-12-19 04:47] LABS: BILIRUBIN,DIRECT 0.3 mg/dL (0.0-0.2); BILIRUBIN,TOTAL 0.6 mg/dL (0.2-1.0); CALCIUM, SERUM 7.8 mg/dL (8.5-10.1); CREATININE 0.7 mg/dL (0.6-1.3); PHOSPHORUS 3.1 mg/dL (2.5-4.9); POTASSIUM 4.1 mmol/L (3.5-5.1); TOTAL PROTEIN, SERUM 5.8 g/dL (6.4-8.2)
--- NOTE | 2019-12-19 07:18 | NUR ---
CERTIFIED SURGICAL TECH/FIRST ASSISTANT CLOSING NOTES, PATIENT IN BED INTUBATED/SEDATED, TOLERATING VENT SETTING WELL, NO SOB OR ACUTE DISTRESS NOTED AST THIS TIME. NO SIGH IF PAIN NOTED. IV ON R HAND RUNNING DIPRIVAN @50MCG/KG/MIN, AND LFA#20 RUNNING NS @40ML/HR. TOLERATING WELL, IV SITE CLEAR AND NO S/S OF INFILTRATION. ISOLATED FOR COVID (+). HOB ELEVATED. BED IN LOW/LOCKED POSITION, SR UPX2. ENDORSED THE PATIENT TO AM RN FOR KEN.
[2019-12-19 08:22] LABS: CHOLESTEROL 131 mg/dL (<200); HDL CHOLESTEROL 22 mg/dL (40-60); LDL 52 mg/dL (0-99); TRIGLYCERIDES 455 mg/dL (30-150)
[2019-12-19] MEDS: AZITHROMYCIN 250 MG TABLET PO SCH (08:42)
[2019-12-19] MEDS: GLUCERNA 1.2 1,000 ML BOTTLE GT PRN (08:42)
[2019-12-19] MEDS: DEXAMETHASONE SOD PHOSPHATE 10 MG/ML VIAL IV SCH (08:42)
[2019-12-19] MEDS: CEFTRIAXONE 1 G in IV D5W 50 ML IV SCH (08:42)
[2019-12-19] MEDS: IV NS 0.9% 1,000 ML IV PRN (08:43)
[2019-12-19] MEDS: ENOXAPARIN SODIUM 40 MG/0.4 ML DISP.SYRIN SQ SCH (08:44)
[2019-12-19 13:38] LABS: ABG BASE EXCESS 1.2 mmol/L; ABG OXYGEN SATURATION 98.7 % (92.0-98.5); ABG PCO2 33.4 mmHg (35.0-45.0); ABG PH 7.477 (7.350-7.450); AaDO2 403.3 mmHg; COHb 0.8 % (0.5-1.5); MetHb 0.3 % (0.0-1.5); O2Hb 97.6 % (94.0-97.0); PEEP,BG 10 cm H2O; SITE, ABG Left Radial; VT, ABG 500 mL
--- NOTE | 2019-12-19 16:05 | NUR ---
PICC LINE RN INSERTED A TRIPLE LUMEN PICC LINE IN RIGHT UPPER ARM WITHOUT DIFFICULTY. RIGHT HAND IV SITE REMOVED, SITE WAS LEAKING.
--- NOTE | 2019-12-19 17:14 | NUR ---
RT NOTE: RECEIVED PT ON NOTED ORDERED VENT SETTINGS. NO RESPIRATORY DISTRESS NOTED. ETT CHECKED SECURE AND PATENT. ROTATED Q 2 FOR INFECTION CONTROL MEASURE. SXD AND LAVAGE NEEDED. EMERGENCY EQUIPMENT @ BEDSIDE. ALARMS CHECKED ON AND AUDIBLE. VENT PLUGGED INTO RED OUTLET.
--- NOTE | 2019-12-19 18:32 | NUR ---
END OF SHIFT NOTE: PT HAD A FAIRLY UNEVENTFUL SHIFT. THIS AM PT WAS WIDE AWAKE AND AGITATED ON 50MCG/KG/MIN OF PROPOFOL, ORDER FROM DR. SMYTH TO INCREASE THE MAX RATE. PROPOFOL WAS ADJUSTED TO MAKE PATIENT COMFORTABLE, UP TO 70MCG/KG/MIN BY 0800. AT NOON PT'S BLOOD PRESSURE STARTED DROPPING, PROPOFOL WAS TITRATED DOWN SLOWLY TO KEEP PT SEDATED WHILE ALLOWING HIS BP TO INCREASE. CURRENTLY PROPOFOL IS INFUSING AT 55MCG/KG/MIN. NO SEDATION VACATION TODAY PER MD ORDERS FOR HIGH PEEP OF 10 AND HIGH O2 AT 80%. RIGHT UPPER ARM TRIPLE LUMEN PICC INSERTED TO BY PICC RN PER MD ORDERS. REMDESIVIR INFUSING PER MD ORDERS AT THIS TIME. PT CHECKED ON HOURLY AND PRN BY NURSING STAFF.
[2019-12-19] MEDS: INVESTIGATIONAL MED MISC 1 EA in IV NS 0.9% 250 ML IV SCH (18:43)
--- NOTE | 2019-12-19 19:00 | NUR ---
RECEIVED PATIENT ON CONTACT /DROPLET ISOLATION + COVID 19.ORALLY INTUBATED ON AC MODE,SEDATED ON PROPOFOL DRIP., + COUGH WHEN SUCTIONED. NOT IN ANY DISTRESS,BREATHING REGULAR,NON LABORED. OGT WITH ON GOING TUBE FEEDING,ASPIRATION PRECAUTION.
[2019-12-20] VITALS (77 sets, daily range): BP systolic 83–169; BP diastolic 52–90
--- NOTE | 2019-12-20 | NUR ---
REMAINS STABLE,SEDATED,NOT IN ANY DISTRESS.
[2019-12-20] MEDS: PROPOFOL 100 ML IV PRN ×4 (01:27→18:40)
--- NOTE | 2019-12-20 02:00 | NUR ---
AM BATH DONE,TOLERATED TURNING/MOVING .NO DESATURATION.
[2019-12-20 04:21] LABS: BASOPHILS % (AUTO) 0.3 % (0.0-2.0); EOSINOPHILS % (AUTO) 0.3 % (0.0-6.0); HEMATOCRIT 40 % (39-51); HEMOGLOBIN 13.1 g/dL (13.5-17.5); LYMPHOCYTES # (AUTO) 0.5 /CMM (0.8-4.8); LYMPHOCYTES % (AUTO) 4.7 % (20.0-44.0); MEAN CORPUSCULAR HGB CONC 33 g/dl (31.0-36.0); MEAN CORPUSCULAR VOLUME 92 fL (80-96); MONOCYTES # (AUTO) 0.5 /CMM (0.1-1.30); MONOCYTES % (AUTO) 4.8 % (2.0-12.0); NEUTROPHILS % (AUTO) 89.9 % (43.0-81.0); PLATELET COUNT (AUTO) 192 /CMM (150-450); RED BLOOD CELL COUNT(AUTO) 4.32 MIL/uL (4.5-6.0); WHITE BLOOD COUNT (AUTO) 11.1 K/uL (4.3-11.0)
[2019-12-20 04:56] LABS: ALBUMIN 1.9 g/dL (3.4-5.0); BILIRUBIN,DIRECT 0.2 mg/dL (0.0-0.2); BILIRUBIN,TOTAL 0.5 mg/dL (0.2-1.0); CREATININE 0.8 mg/dL (0.6-1.3); MAGNESIUM 1.9 mg/dL (1.8-2.4); PHOSPHORUS 3.1 mg/dL (2.5-4.9); POTASSIUM 4.5 mmol/L (3.5-5.1); TOTAL PROTEIN, SERUM 5.7 g/dL (6.4-8.2)
[2019-12-20] MEDS: BLOOD SUGAR DIAGNOSTIC 1 EACH STRIP IN SCH ×3 (06:08→17:36)
[2019-12-20] MEDS: INSULIN REGULAR, HUMAN 100 UNIT/ML 3 ML VIAL SQ PRN ×3 (06:10→17:42)
--- NOTE | 2019-12-20 07:00 | NUR ---
REMAINS STABLE,STILL INTUBATED ,SEDATED.REPORT GIVEN TO ARSH JON
--- NOTE | 2019-12-20 07:30 | NUR ---
RN NOTES RECEIVED PATIENT SEATED WITH DIPRIVAN WITH DIPRIVAN AT 55MCG/KG/MIN-WILL TITRATE ABLE. PATIENT ORALLY INTUBATED, TOLERATING CURRENT VENT SETTINGS, NO SHORTNESS OF BREATH NOTED. SATING 100% AT THIS TIME. HOB ELEVATED. OGT CLAMPED. BILATERAL SOFT RESTRAINTS IN PLACE, REMOVED AND REPLACED TO CHECK SKIN INTEGRITY. GORDON CATHETER IN PLACE, DRAINING TO CLEAR YELLOW URINE. SAFETY MEASURES IN PLACE. SRX2 UP. CALL LIGHT WITHIN REACH. WILL CONTINUE TO MONITOR AND KEEP PATIENT ON ISOLATION.
[2019-12-20 08:24] LABS: ABG BASE EXCESS 1.2 mmol/L; ABG OXYGEN SATURATION 93.1 % (92.0-98.5); ABG PH 7.448 (7.350-7.450); ABG PO2 66.9 mmHg (75.0-100.0); AaDO2 464.7 mmHg; COHb 0.7 % (0.5-1.5); O2Hb 92.4 % (94.0-97.0); SITE, ABG Left Brachial; VENT MODE, BG AC 22 500 80% +10
[2019-12-20] MEDS: CEFTRIAXONE 1 G in IV D5W 50 ML IV SCH (08:47)
[2019-12-20] MEDS: AZITHROMYCIN 250 MG TABLET PO SCH (08:47)
[2019-12-20] MEDS: DEXAMETHASONE SOD PHOSPHATE 10 MG/ML VIAL IV SCH (08:47)
[2019-12-20] MEDS: ENOXAPARIN SODIUM 40 MG/0.4 ML DISP.SYRIN SQ SCH (08:48)
[2019-12-20] MEDS: IV NS 0.9% 1,000 ML IV PRN (15:50)
[2019-12-20] MEDS: INVESTIGATIONAL MED MISC 1 EA in IV NS 0.9% 250 ML IV SCH (17:40)
--- NOTE | 2019-12-20 20:44 | NUR ---
ARTERIAL EMBALMER, INITIAL ASSESSMENT. RECEIVED THE PT REST ON THE BED. ORALLY INTUBATED. SEDATED WITH DIPRIVAN. ETT 7.7,LIP 22,TV 500,FIO2 80%,PEEP 10. SAT 98%/ NO ACUTE DISTRESS NOTED. MENTAL HEALTH SOCIAL WORKER SHOWING NSR. IV RT UPPER ARM PICC LINE. LT HAND 20DIPRIVAN 35MCG/KG/MIN.NS 40ML/H. FC PATENT. HOB ELEVATED. WILL CONTINUE TO MONITOR VITALS.
[2019-12-21] VITALS (36 sets, daily range): BP systolic 79–160; BP diastolic 46–85
[2019-12-21] MEDS: PROPOFOL 100 ML IV PRN ×5 (00:31→22:49)
[2019-12-21] MEDS: INSULIN REGULAR, HUMAN 100 UNIT/ML 3 ML VIAL SQ PRN ×4 (01:30→18:48)
--- NOTE | 2019-12-21 03:42 | NUR ---
BULK LOADER. AM CARE ORAL CARE, BED BATH GIVEN. LINEN CHANGED, REMAINING SAME VENT SETTING TOLERATED WELL. SAT 98%. DRY PAN OPERATOR SHOWING NSR. IV RT UPPER ARM PICC LINE, IVF NS 40ML/H,DIPRIVAN 35MCG/KG/MIN, HOB ELEVATED. OGT FEEDING TOLERATED WELL. YINKA SOFT WRIST RESTRAINT CHECKED AND RELEASED. NO INJURY OR REDNESS NOTED. WILL CONTINUE TO MONITOR
[2019-12-21 04:17] LABS: BASOPHILS % (AUTO) 0.1 % (0.0-2.0); EOSINOPHILS % (AUTO) 0.2 % (0.0-6.0); HEMATOCRIT 36 % (39-51); HEMOGLOBIN 11.8 g/dL (13.5-17.5); LYMPHOCYTES # (AUTO) 0.3 /CMM (0.8-4.8); LYMPHOCYTES % (AUTO) 2.5 % (20.0-44.0); MEAN CORPUSCULAR HGB CONC 33 g/dl (31.0-36.0); MEAN CORPUSCULAR VOLUME 93 fL (80-96); MONOCYTES # (AUTO) 0.6 /CMM (0.1-1.30); MONOCYTES % (AUTO) 4.3 % (2.0-12.0); NEUTROPHILS # (AUTO) 12.2 /CMM (1.8-8.9); NEUTROPHILS % (AUTO) 92.9 % (43.0-81.0); PLATELET COUNT (AUTO) 181 /CMM (150-450); RED BLOOD CELL COUNT(AUTO) 3.87 MIL/uL (4.5-6.0); WHITE BLOOD COUNT (AUTO) 13.1 K/uL (4.3-11.0)
[2019-12-21 04:57] LABS: ALBUMIN 1.7 g/dL (3.4-5.0); BILIRUBIN,DIRECT 0.1 mg/dL (0.0-0.2); BILIRUBIN,TOTAL 0.4 mg/dL (0.2-1.0); CALCIUM, SERUM 8.1 mg/dL (8.5-10.1); CREATININE 0.8 mg/dL (0.6-1.3); MAGNESIUM 1.9 mg/dL (1.8-2.4); PHOSPHORUS 3.3 mg/dL (2.5-4.9); POTASSIUM 4.6 mmol/L (3.5-5.1); TOTAL PROTEIN, SERUM 5.4 g/dL (6.4-8.2)
[2019-12-21] MEDS: BLOOD SUGAR DIAGNOSTIC 1 EACH STRIP IN SCH ×4 (05:39→18:00)
--- NOTE | 2019-12-21 07:49 | NUR ---
RN OPENING NOTE: Received patient in bed and sedated. Appears comfortable and relaxed. On mechanical ventilation at prescribed settings. Currently tolerating settings. Isolation precaution for COVID-[address] Bilateral soft-wrist restraints on. OGT in place, patent and intact with feeding of Glucerna 1.2 @ 30mls/hr running. IV site clean, dry, patent and intact. IV infusion of Ns @ 40mls/hr and Propofol @ 35mcg/kg/min running. Ritchie catheter draining liz-yellow urine. Call light in reach. Bed locked, low and at semi-arthur's position. Side rails up x3. Safety ensured and observed. Will continue to monitor.
[2019-12-21] MEDS: CEFTRIAXONE 1 G in IV D5W 50 ML IV SCH (08:05)
[2019-12-21] MEDS: DEXAMETHASONE SOD PHOSPHATE 10 MG/ML VIAL IV SCH (08:14)
[2019-12-21 08:15] LABS: ABG BASE EXCESS -0.5 mmol/L; ABG OXYGEN SATURATION 97.4 % (92.0-98.5); ABG PCO2 39.6 mmHg (35.0-45.0); ABG PH 7.402 (7.350-7.450); ABG PO2 96.4 mmHg (75.0-100.0); AaDO2 432.4 mmHg; COHb 0.8 % (0.5-1.5); MetHb 0.1 % (0.0-1.5); O2Hb 96.5 % (94.0-97.0); PEEP,BG 10 cm H2O; SITE, ABG Right Radial; VENT MODE, BG AC 22 500 +10 80%
[2019-12-21] MEDS: ENOXAPARIN SODIUM 40 MG/0.4 ML DISP.SYRIN SQ SCH (08:17)
[2019-12-21] MEDS: GLUCERNA 1.2 1,000 ML BOTTLE GT PRN (17:20)
[2019-12-21] MEDS: IV NS 0.9% 1,000 ML IV PRN (18:29)
[2019-12-21] MEDS: HYDROCODONE/APAP 5/325MG 1 EACH TABLET PO PRN (18:34)
[2019-12-21] MEDS: INVESTIGATIONAL MED MISC 1 EA in IV NS 0.9% 250 ML IV SCH (18:43)
--- NOTE | 2019-12-21 19:27 | NUR ---
RN CLOSING NOTE: No acute changes noted on shift. Providers made rounds earlier, spoke to family about patient's status and wish to speak to providers. MDs informed. Patient remains in bed and sedated. Appears comfortable and relaxed. On mechanical ventilation at prescribed settings. Currently tolerating settings. Tele monitor showing sinus tachycardia in the 110s. Isolation precaution for COVID-[address] Bilateral soft-wrist restraints on. OGT in place, patent and intact with feeding of Glucerna 1.2 @ 30mls/hr running. IV site clean, dry, patent and intact. IV infusion of Ns @ 40mls/hr and Propofol @ 50mcg/kg/min running. Currently infusing scheduled dose of Remdezevir. Ritchie catheter draining liz-yellow urine. Call light in reach. Bed locked, low and at semi-arthur's position. Side rails up x3. Safety ensured and observed. Due medications given. Treatment given as ordered. Endorsed to oncoming shift for KEN.
--- NOTE | 2019-12-21 19:54 | NUR ---
RT NOTES PT RECEIVED ORALLY INTUBATED WITH 7.5 ETT SECURED AT 23CM AT THE LIP LINE ON [facility] VENT ON ORDERED VENT SETTINGS. NO SIGNS OF RESP DISTRESS NOTED AT THIS TIME. AIRWAY PATENT AND SECURED. PLATING OPERATOR DONE. SUCTIONED SMALL AMOUNT OF THICK, CLEAR/WHITE SECRETIONS. ALARMS SET AND AUDIBLE. AMBUBAG AT BESIDE. VENT CONT TO RED OUTLET. WILL CONT TO MONITOR. Addendum: 12/21/19 at 2243 by ANIA PRABHAKAR RT Amended: Links added.
[2019-12-22] VITALS (25 sets, daily range): BP systolic 102–141; BP diastolic 60–77
[2019-12-22] MEDS: BLOOD SUGAR DIAGNOSTIC 1 EACH STRIP IN SCH ×4 (00:18→18:07)
[2019-12-22] MEDS: INSULIN REGULAR, HUMAN 100 UNIT/ML 3 ML VIAL SQ PRN ×4 (00:50→18:10)
[2019-12-22] MEDS: PROPOFOL 100 ML IV PRN ×5 (01:49→22:17)
[2019-12-22 04:25] LABS: BASOPHILS % (AUTO) 0.1 % (0.0-2.0); EOSINOPHILS % (AUTO) 0.3 % (0.0-6.0); HEMATOCRIT 37 % (39-51); HEMOGLOBIN 12.4 g/dL (13.5-17.5); LYMPHOCYTES # (AUTO) 0.4 /CMM (0.8-4.8); LYMPHOCYTES % (AUTO) 3.1 % (20.0-44.0); MEAN CORPUSCULAR HGB CONC 33 g/dl (31.0-36.0); MEAN CORPUSCULAR VOLUME 92 fL (80-96); MONOCYTES # (AUTO) 0.6 /CMM (0.1-1.30); NEUTROPHILS # (AUTO) 11.1 /CMM (1.8-8.9); NEUTROPHILS % (AUTO) 91.5 % (43.0-81.0); PLATELET COUNT (AUTO) 192 /CMM (150-450); RED BLOOD CELL COUNT(AUTO) 4.06 MIL/uL (4.5-6.0); WHITE BLOOD COUNT (AUTO) 12.1 K/uL (4.3-11.0)
[2019-12-22 05:04] LABS: ALBUMIN 1.7 g/dL (3.4-5.0); BILIRUBIN,DIRECT 0.2 mg/dL (0.0-0.2); BILIRUBIN,TOTAL 0.5 mg/dL (0.2-1.0); CALCIUM, SERUM 7.8 mg/dL (8.5-10.1); CREATININE 0.8 mg/dL (0.6-1.3); MAGNESIUM 1.9 mg/dL (1.8-2.4); PHOSPHORUS 3.2 mg/dL (2.5-4.9); POTASSIUM 4.6 mmol/L (3.5-5.1); TOTAL PROTEIN, SERUM 5.9 g/dL (6.4-8.2)
[2019-12-22] MEDS: CEFTRIAXONE 1 G in IV D5W 50 ML IV SCH (08:07)
[2019-12-22] MEDS: ENOXAPARIN SODIUM 40 MG/0.4 ML DISP.SYRIN SQ SCH (08:08)
[2019-12-22] MEDS: DEXAMETHASONE SOD PHOSPHATE 10 MG/ML VIAL IV SCH (08:08)
[2019-12-22 08:22] LABS: ABG BASE EXCESS 0.2 mmol/L; ABG OXYGEN SATURATION 92.9 % (92.0-98.5); ABG PH 7.417 (7.350-7.450); ABG PO2 64.9 mmHg (75.0-100.0); COHb 0.6 % (0.5-1.5); MetHb 0.3 % (0.0-1.5); O2Hb 92.1 % (94.0-97.0); PEEP,BG 10 cm H2O; SITE, ABG Left Radial; VT, ABG 500 mL
--- NOTE | 2019-12-22 09:36 | NUR ---
RN NOTE 0715: Received patient intubated, sedated. With ETT to vent, AC 22 500 60% +10. With AKIKO PICC intact, on Diprivan @ 50mcg. IVF infusing as ordered. With OGT intact, TF tolerated well, no residuals. With Ritchie cath intact, noted with clear liz colored urine drained to BSD. With MANUFACTURING MANAGER restraints on for safety. On isolation prec for Covid19, maintained and observed. 0930: S/E by Dr. Pringle, given update, aware for am labs and ABG. Given number of Zakiya (granddaughter), A Romansh speaking family member. Temp 99.5 at this time. aware. Will continue to monitor.
[2019-12-22] MEDS: IV NS 0.9% 1,000 ML IV PRN (17:12)
[2019-12-22] MEDS: INVESTIGATIONAL MED MISC 1 EA in IV NS 0.9% 250 ML IV SCH (17:55)
--- NOTE | 2019-12-22 18:25 | NUR ---
RN NOTE No any significant changes noted. No changes from vent settings. No respiratory distress noted. Rendered sedation vacation, noted with mild agitation on Diprivan @ 35mcg, noted with trying to move extremities at times and gagging. Kept on 40mcg. OPERATIONS GENERAL AGENT restraints on. Kept clean, warm and dry. No ASE noted from Remdesivir. TF tolerated, kept HOB elevated.
--- NOTE | 2019-12-22 20:05 | NUR ---
RT NOTES PT RECEIVED ORALLY INTUBATED WITH 7.5 ETT SECURED AT 23CM AT THE LIP LINE ON [facility] VENT ON ORDERED VENT SETTINGS. NO SIGNS OF RESP DISTRESS NOTED AT THIS TIME. AIRWAY PATENT AND SECURED. EXHIBIT DISPLAY REPRESENTATIVE DONE. ALARMS SET AND AUDIBLE. AMBUBAG AT BESIDE. VENT CONT TO RED OUTLET. WILL CONT TO MONITOR. Addendum: 12/22/19 at 2006 by JOHN ROSEN RT Amended: Links added.
[2019-12-23] VITALS (24 sets, daily range): BP systolic 82–164; BP diastolic 43–79
[2019-12-23] MEDS: BLOOD SUGAR DIAGNOSTIC 1 EACH STRIP IN SCH ×5 (00:56→23:26)
[2019-12-23] MEDS: INSULIN REGULAR, HUMAN 100 UNIT/ML 3 ML VIAL SQ PRN ×5 (02:14→23:27)
[2019-12-23] MEDS: PROPOFOL 100 ML IV PRN ×4 (04:35→21:31)
[2019-12-23 05:05] LABS: ALBUMIN 1.7 g/dL (3.4-5.0); BILIRUBIN,TOTAL 0.4 mg/dL (0.2-1.0); CALCIUM, SERUM 8.1 mg/dL (8.5-10.1); CREATININE 0.7 mg/dL (0.6-1.3); POTASSIUM 4.6 mmol/L (3.5-5.1); TOTAL PROTEIN, SERUM 5.9 g/dL (6.4-8.2)
[2019-12-23 05:20] LABS: BASOPHILS % (AUTO) 0.1 % (0.0-2.0); EOSINOPHILS % (AUTO) 0.6 % (0.0-6.0); HEMATOCRIT 40 % (39-51); HEMOGLOBIN 12.7 g/dL (13.5-17.5); LYMPHOCYTES # (AUTO) 0.4 /CMM (0.8-4.8); LYMPHOCYTES % (AUTO) 2.6 % (20.0-44.0); MEAN CORPUSCULAR HGB CONC 32 g/dl (31.0-36.0); MEAN CORPUSCULAR VOLUME 92 fL (80-96); MONOCYTES # (AUTO) 0.8 /CMM (0.1-1.30); MONOCYTES % (AUTO) 5.6 % (2.0-12.0); NEUTROPHILS # (AUTO) 12.8 /CMM (1.8-8.9); NEUTROPHILS % (AUTO) 91.1 % (43.0-81.0); PLATELET COUNT (AUTO) 205 /CMM (150-450)
[2019-12-23 05:24] LABS: MAGNESIUM 2.2 mg/dL (1.8-2.4); PHOSPHORUS 3.3 mg/dL (2.5-4.9)
[2019-12-23 05:26] LABS: BILIRUBIN,DIRECT 0.2 mg/dL (0.0-0.2)
[2019-12-23 08:06] LABS: ABG BASE EXCESS -2.6 mmol/L; ABG OXYGEN SATURATION 91.5 % (92.0-98.5); ABG PCO2 33.1 mmHg (35.0-45.0); ABG PH 7.421 (7.350-7.450); ABG PO2 64.1 mmHg (75.0-100.0); AaDO2 327.3 mmHg; COHb 0.5 % (0.5-1.5); MetHb 0.3 % (0.0-1.5); O2Hb 90.8 % (94.0-97.0); SITE, ABG Right Radial; VENT MODE, BG AC 22 500 60% +10
[2019-12-23] MEDS: DEXAMETHASONE SOD PHOSPHATE 10 MG/ML VIAL IV SCH (08:24)
[2019-12-23] MEDS: ENOXAPARIN SODIUM 40 MG/0.4 ML DISP.SYRIN SQ SCH (08:26)
[2019-12-23] MEDS: CEFTRIAXONE 1 G in IV D5W 50 ML IV SCH (08:49)
[2019-12-23] MEDS: ACETAMINOPHEN 325 MG TABLET PO PRN (08:49)
--- NOTE | 2019-12-23 09:04 | NUR ---
RN NOTE 0715: Received patient with ETT to vent, tolerated settings. AC 22 500 60% +10, but noted patient with mild agitation AEB high HR, trying to move arms. UROGYNECOLOGY PHYSICIAN restraints on for safety. With OGT intact, TF tolerated. Ritchie cath intact, noted with clear liz colored urine drained to BSD. On isolation prec for Covid, maintained and observed. On Diprivan @ 40, will titrate higher to make patient calmer or sedated. 0820: Noted with temp 100.2, rendered cooling measures, Tylenol given. Repositioned for comfort. Will continue to monitor. Still noted with high HR. 0900: No any significant changes noted. Fever 100.3. HR 130's.
[2019-12-23] MEDS: GLUCERNA 1.2 1,000 ML BOTTLE GT PRN (16:54)
[2019-12-23] MEDS: IV NS 0.9% 1,000 ML IV PRN (17:27)
[2019-12-23] MEDS: INVESTIGATIONAL MED MISC 1 EA in IV NS 0.9% 250 ML IV SCH (18:11)
--- NOTE | 2019-12-23 18:15 | NUR ---
RN NOTE No any significant changes noted at this time. Afebrile Now. Tmax in am was 100.3, now is 98.7. Kept clean, warm and dry. Needs attended. Kept HOB elevated. No ASE from Remdesivir noted. Family is updated re: patient's condition, spoke with granddaughter Jamison.
--- NOTE | 2019-12-23 19:15 | NUR ---
RN OPENING NOTES RECEIVED PT ON BED SEDATED BY PROPOFOL @ 50MCG/KG/MIN VIA AKIKO PICC INFUSING WELL, ON ETT/VENT SETTING ORDERED WITH SPO2 99% NO SIGN AND SYMPTOMS OF RESPIRATORY DISTRESS, ON BEDSIDE MONITOR WITH READING SINUS RHYTHM 90'S, WITH ONGOING IVF NS@ 40ML/HR VIA AKIKO PICC INFUSING WELL, WITH GORDON CATH PATENT AND WITH YELLOW URINE FLOWING VIA GRAVITY, DROPLET ISOLATION MAINTAINED FOR COVID (+), WITH BILATERAL WRIST SOFT RESTRAINTS CIRCULATION WILL CHECKED REGULARLY, SAFETY MEASURE MAINTAINED WILL CONT TO MONITOR
[2019-12-24] VITALS (26 sets, daily range): BP systolic 84–174; BP diastolic 29–76
[2019-12-24] MEDS: PROPOFOL 100 ML IV PRN ×5 (00:45→20:08)
[2019-12-24] MEDS: Z GUARD REMEDY 2 OZ OINT TP PRN (03:12)
[2019-12-24 04:43] LABS: EOSINOPHILS % (AUTO) 0.5 % (0.0-6.0); HEMATOCRIT 34 % (39-51); HEMOGLOBIN 11.3 g/dL (13.5-17.5); LYMPHOCYTES # (AUTO) 0.3 /CMM (0.8-4.8); LYMPHOCYTES % (AUTO) 3.3 % (20.0-44.0); MEAN CORPUSCULAR HGB CONC 33 g/dl (31.0-36.0); MEAN CORPUSCULAR VOLUME 91 fL (80-96); MONOCYTES # (AUTO) 0.5 /CMM (0.1-1.30); MONOCYTES % (AUTO) 4.7 % (2.0-12.0); NEUTROPHILS # (AUTO) 9.1 /CMM (1.8-8.9); NEUTROPHILS % (AUTO) 91.5 % (43.0-81.0); PLATELET COUNT (AUTO) 174 /CMM (150-450); RED BLOOD CELL COUNT(AUTO) 3.75 MIL/uL (4.5-6.0); WHITE BLOOD COUNT (AUTO) 9.9 K/uL (4.3-11.0)
[2019-12-24 05:01] LABS: ALANINE AMINOTRANSFERASE 29 U/L (12-78); ALBUMIN 1.5 g/dL (3.4-5.0); ALKALINE PHOSPHATASE 146 U/L (46-116); ASPARTATE AMINOTRANSFERASE 27 U/L (15-37); BILIRUBIN,DIRECT 0.1 mg/dL (0.0-0.2); BILIRUBIN,TOTAL 0.3 mg/dL (0.2-1.0); CALCIUM, SERUM 7.9 mg/dL (8.5-10.1); CARBON DIOXIDE 28 mmol/L (21-32); CHLORIDE 103 mmol/L (98-107); CREATININE 0.8 mg/dL (0.6-1.3); GLUCOSE 242 mg/dL (74-106); POTASSIUM 4.6 mmol/L (3.5-5.1); SODIUM SERUM 136 mmol/L (136-145); TOTAL PROTEIN, SERUM 5.3 g/dL (6.4-8.2); UREA NITROGEN, BLOOD 45 mg/dL (7-18)
[2019-12-24 05:08] LABS: PHOSPHORUS 3.5 mg/dL (2.5-4.9)
[2019-12-24 05:43] LABS: CHOLESTEROL 110 mg/dL (<200); HDL CHOLESTEROL 25 mg/dL (40-60); LDL 57 mg/dL (0-99); TRIGLYCERIDES 162 mg/dL (30-150)
[2019-12-24] MEDS: BLOOD SUGAR DIAGNOSTIC 1 EACH STRIP IN SCH ×3 (05:56→17:36)
[2019-12-24] MEDS: INSULIN REGULAR, HUMAN 100 UNIT/ML 3 ML VIAL SQ PRN ×3 (05:58→17:39)
[2019-12-24] MEDS: CEFTRIAXONE 1 G in IV D5W 50 ML IV SCH (07:34)
--- NOTE | 2019-12-24 08:00 | NUR ---
RN NOTES PT ON BE SEDATED WITH PROPOFOL @ 40MCG/KG/MIN VIA AKIKO PICC INFUSING WELL, STILL ON ETT/VENT SETTING ORDER TOLERATING WELL SPO2 98% ON BED SIDE MONITOR WITH CURRENT READING SINUS TACHY 100'S NO SIGNIFICANT CHANGES ON CONDITION NOTED, DROPLET ISOLATION MAINTAINED SAFETY MEASURE OBSERVED WILL CONT TO MONITOR
[2019-12-24] MEDS: DEXAMETHASONE SOD PHOSPHATE 10 MG/ML VIAL IV SCH (08:12)
[2019-12-24] MEDS: ENOXAPARIN SODIUM 40 MG/0.4 ML DISP.SYRIN SQ SCH (08:14)
[2019-12-24 08:40] LABS: ABG BASE EXCESS -1.3 mmol/L; ABG OXYGEN SATURATION 92.4 % (92.0-98.5); ABG PCO2 42.7 mmHg (35.0-45.0); ABG PH 7.369 (7.350-7.450); ABG PO2 67.4 mmHg (75.0-100.0); AaDO2 313.4 mmHg; COHb 0.8 % (0.5-1.5); MetHb 0.3 % (0.0-1.5); O2Hb 91.4 % (94.0-97.0); PEEP,BG 10 cm H2O; SITE, ABG Left Radial; VT, ABG 500 mL
--- NOTE | 2019-12-24 10:00 | NUR ---
RN NOTES SEEN BY DR. SMYTH, SEDATION VACATION DONE NOT TOLERATED MAINTAIN ON SAME VENT SETTING AND PROPOFOL @ 40MCG/KG/MIN WILL CONT TO MONITOR
[2019-12-24] MEDS: INVESTIGATIONAL MED MISC 1 EA in IV NS 0.9% 250 ML IV SCH (18:14)
--- NOTE | 2019-12-24 18:48 | NUR ---
RN NOTES PT ON BE SEDATED WITH PROPOFOL @ 40MCG/KG/MIN VIA AKIKO PICC INFUSING WELL, STILL ON ETT/VENT SETTING ORDER TOLERATING WELL SPO2 98% ON BED SIDE MONITOR WITH CURRENT READING SINUS RHYTHM 90'S NO SIGNIFICANT CHANGES ON CONDITION NOTED, DROPLET ISOLATION MAINTAINED SAFETY MEASURE OBSERVED WILL ENDORSED TO WILDLIFE REMOVAL SPECIALIST NURSE
--- NOTE | 2019-12-24 23:17 | NUR ---
VIDEOTAPE EDITOR. INITIAL ASSESSMENT. RECEIVED THE PT REST ON THE BED.ORALLY INTUBATED, SEDATED WITH DIPRIVAN. ETT 7.5,LIP 23CM,AC 22,TV 400,FIO2 60%,PEEP 5. SAT 98%, NO ACUTE DISTRESS NOTED/ MARKETING RESEARCH COORDINATOR SHOWING NSR. IV RT UPPER ARM PICC LINE DIPRIVAN 40MCG/KG/MIN, HOB ELEVATED, OGT FEEDING GLUCERNA 30ML/H. HOB ELEVATED. WILL CONTINUE TO MONITOR VITALS.
[2019-12-25] VITALS (30 sets, daily range): BP systolic 77–140; BP diastolic 42–80
[2019-12-25] MEDS: BLOOD SUGAR DIAGNOSTIC 1 EACH STRIP IN SCH ×4 (01:06→17:36)
[2019-12-25] MEDS: INSULIN REGULAR, HUMAN 100 UNIT/ML 3 ML VIAL SQ PRN ×4 (01:32→17:37)
[2019-12-25] MEDS: PROPOFOL 100 ML IV PRN ×5 (01:33→17:45)
[2019-12-25 04:31] LABS: BASOPHILS % (AUTO) 0.3 % (0.0-2.0); EOSINOPHILS % (AUTO) 0.2 % (0.0-6.0); HEMATOCRIT 37 % (39-51); HEMOGLOBIN 12.4 g/dL (13.5-17.5); LYMPHOCYTES # (AUTO) 0.4 /CMM (0.8-4.8); LYMPHOCYTES % (AUTO) 3.8 % (20.0-44.0); MEAN CORPUSCULAR HGB CONC 33 g/dl (31.0-36.0); MEAN CORPUSCULAR VOLUME 92 fL (80-96); MONOCYTES # (AUTO) 0.6 /CMM (0.1-1.30); MONOCYTES % (AUTO) 6.1 % (2.0-12.0); NEUTROPHILS # (AUTO) 9.3 /CMM (1.8-8.9); NEUTROPHILS % (AUTO) 89.6 % (43.0-81.0); PLATELET COUNT (AUTO) 195 /CMM (150-450); RED BLOOD CELL COUNT(AUTO) 4.07 MIL/uL (4.5-6.0); WHITE BLOOD COUNT (AUTO) 10.4 K/uL (4.3-11.0)
--- NOTE | 2019-12-25 04:42 | NUR ---
MEDICAL ANTHROPOLOGIST. AM CARE, ORAL CARE, BED BATH GIVEN. LINEN CHANGED. REMAINING SAME VENT SETTING TOLERATED WELL. SAT 98%. NO ACUTE DISTRESS NOTED. POTATO PANCAKE FRIER SHOWING NSR. IV RT UPPER ARM PICC LINE. DIPRIVAN 40MCG/KG/MIN. FC PATENT . URINE DRAINING. YINKA SOFT WRIST RESTRAINT CHECKED AND RELEASED. NO INJURY OR REDNESS NOTED. AFEBRILE. WILL CONTINUE TO MONITOR VITALS.
[2019-12-25 05:01] LABS: ALANINE AMINOTRANSFERASE 39 U/L (12-78); ALBUMIN 1.5 g/dL (3.4-5.0); ALKALINE PHOSPHATASE 169 U/L (46-116); ASPARTATE AMINOTRANSFERASE 35 U/L (15-37); BILIRUBIN,DIRECT 0.2 mg/dL (0.0-0.2); BILIRUBIN,TOTAL 0.4 mg/dL (0.2-1.0); CALCIUM, SERUM 8.2 mg/dL (8.5-10.1); CARBON DIOXIDE 29 mmol/L (21-32); CHLORIDE 103 mmol/L (98-107); CREATININE 0.6 mg/dL (0.6-1.3); GLUCOSE 224 mg/dL (74-106); POTASSIUM 4.4 mmol/L (3.5-5.1); SODIUM SERUM 136 mmol/L (136-145); TOTAL PROTEIN, SERUM 5.8 g/dL (6.4-8.2); UREA NITROGEN, BLOOD 35 mg/dL (7-18)
[2019-12-25] MEDS: GLUCERNA 1.2 1,000 ML BOTTLE GT PRN (06:24)
--- NOTE | 2019-12-25 07:20 | NUR ---
RN INITIAL NOTES RECEIVED PT INTUBATED, ON VENT. HOB ELEVATED. NO RESPIRATORY DISTRESS NOTED. PT SEDATED, ON DIPRIVAN AT 40MCG/KG/MIN. AKIKO PICC IN PLACE. OG IN PLACE. TOLERATING FEEDING WELL. FC IN PLACE. BLE ELEVATED. WILL MONITOR
[2019-12-25] MEDS: DEXAMETHASONE SOD PHOSPHATE 10 MG/ML VIAL IV SCH (09:18)
[2019-12-25] MEDS: ENOXAPARIN SODIUM 40 MG/0.4 ML DISP.SYRIN SQ SCH (09:19)
[2019-12-25 09:28] LABS: ABG BASE EXCESS 2.3 mmol/L; ABG OXYGEN SATURATION 92.5 % (92.0-98.5); ABG PCO2 37.5 mmHg (35.0-45.0); ABG PH 7.459 (7.350-7.450); ABG PO2 62.7 mmHg (75.0-100.0); AaDO2 323.9 mmHg; COHb 0.9 % (0.5-1.5); MetHb 0.3 % (0.0-1.5); O2Hb 91.4 % (94.0-97.0); PEEP,BG 8 cm H2O; SITE, ABG Right Radial; VT, ABG 500 mL
[2019-12-25] MEDS: CEFTRIAXONE 1 G in IV D5W 50 ML IV SCH (10:55)
[2019-12-25] MEDS ORDERED: INVESTIGATIONAL MED MISC 1 EA in IV NS 0.9% 250 ML IV SCH ×2 (14:21→18:00)
--- NOTE | 2019-12-25 18:50 | NUR ---
RN CLOSING NOTES PT REMAINS INTUBATED, ON VENT. NO RESPIRATORY DISTRESS NOTED. NO SOB NOTED. KEPT SEDATED. TX PROVIDED ORDERED. KEPT CLEAN AND DRY. BLE ELEVATED. WILL ENDORSE FOR CONTINUITY OF CARE.
[2019-12-26] VITALS (58 sets, daily range): BP systolic 77–130; BP diastolic 42–74
[2019-12-26] MEDS: PROPOFOL 100 ML IV PRN ×4 (00:30→20:25)
[2019-12-26] MEDS: INSULIN REGULAR, HUMAN 100 UNIT/ML 3 ML VIAL SQ PRN ×4 (01:12→17:49)
[2019-12-26] MEDS: BLOOD SUGAR DIAGNOSTIC 1 EACH STRIP IN SCH ×4 (01:12→17:48)
[2019-12-26 04:23] LABS: BASOPHILS % (AUTO) 0.1 % (0.0-2.0); EOSINOPHILS % (AUTO) 0.1 % (0.0-6.0); HEMATOCRIT 36 % (39-51); HEMOGLOBIN 11.8 g/dL (13.5-17.5); LYMPHOCYTES # (AUTO) 0.5 /CMM (0.8-4.8); LYMPHOCYTES % (AUTO) 4.8 % (20.0-44.0); MEAN CORPUSCULAR HGB CONC 33 g/dl (31.0-36.0); MEAN CORPUSCULAR VOLUME 92 fL (80-96); MONOCYTES # (AUTO) 0.5 /CMM (0.1-1.30); MONOCYTES % (AUTO) 5.6 % (2.0-12.0); NEUTROPHILS # (AUTO) 8.7 /CMM (1.8-8.9); NEUTROPHILS % (AUTO) 89.4 % (43.0-81.0); PLATELET COUNT (AUTO) 196 /CMM (150-450); RED BLOOD CELL COUNT(AUTO) 3.94 MIL/uL (4.5-6.0); WHITE BLOOD COUNT (AUTO) 9.7 K/uL (4.3-11.0)
[2019-12-26 04:41] LABS: ALBUMIN 1.5 g/dL (3.4-5.0); BILIRUBIN,DIRECT 0.2 mg/dL (0.0-0.2); BILIRUBIN,TOTAL 0.4 mg/dL (0.2-1.0); CREATININE 0.7 mg/dL (0.6-1.3); MAGNESIUM 1.9 mg/dL (1.8-2.4); PHOSPHORUS 3.3 mg/dL (2.5-4.9); POTASSIUM 4.6 mmol/L (3.5-5.1); TOTAL PROTEIN, SERUM 5.5 g/dL (6.4-8.2)
[2019-12-26] MEDS: MAGNESIUM HYDROXIDE 30 ML UDC PO PRN ×2 (04:59→18:37)
[2019-12-26 05:29] LABS: D-DIMER 17.2 mg/L(FEU (0.17-0.50)
--- NOTE | 2019-12-26 07:05 | NUR ---
RN NOTES RECEIVED PT ON BED, INTUBATED, ON VENT. SEDATED, ON DIPRIVAN AT 25MCG/KG/MIN, ON TELE ST HR IN 110'S , HOB ELEVATED. NO RESPIRATORY DISTRESS NOTED. GORDON DRINING TO GRAVITY, GLUCERNA AT 30CC/HR RUNNING VIA OGT, TOLERATING WELL, NO RESIDUAL NOTED, AKIKO PICC SITE CLEAN, DRY AND INTACT, YINKA. LE ELEVATED. SR UP x3, CALL LIGHT WITHIN EASY REACH, BED LOCKED AND IN LOWEST POSITION, CONTINUE TO MONITOR.
--- NOTE | 2019-12-26 07:26 | NUR ---
patient remains in no acute distress in bed. patient did not have any significant change in condition during shift. all needs met, all orders carried out. will endorse care to am RN for continuity of care.
[2019-12-26] MEDS: DEXAMETHASONE SOD PHOSPHATE 10 MG/ML VIAL IV SCH (08:21)
[2019-12-26] MEDS: ENOXAPARIN SODIUM 40 MG/0.4 ML DISP.SYRIN SQ SCH (08:22)
--- NOTE | 2019-12-26 12:00 | NUR ---
RN NOTES VSS STABLE, CONTINUE TO MONITOR .
--- NOTE | 2019-12-26 15:09 | NUR ---
RN NOTES FFP STARTED, VERIFIED BY TWO RNS AT 1509, UNABLE TO SCAN BLOOD PRODUCT, OVERRIDE DONE PER AMANDEEP AT BLOOD BANK. VSS STABLE, CONTINUE TO MONITOR .
--- NOTE | 2019-12-26 18:00 | NUR ---
RN NOTES PT REMAINS INTUBATED AND SEDATED ON DIPRIVAN AT 30MCG/KG/MIN. RECEIVED ON UNIT OF FFP ON THIS SHIFT, TOLERATED WELL, NO REACTION NOTED, ON TELE ST , TF AT 30CC/HR RUNNING , NO RESIDUAL NOTED, SR UP x3, CALL LIGHT WITHIN EASY REACH, BED LOCKED AND IN LOWEST POSITION, WILL ENDORSE TO ROPE MACHINE SETTER NURSE FOR CONTINUITY OF CARE .
[2019-12-27] VITALS (24 sets, daily range): BP systolic 91–150; BP diastolic 47–80
[2019-12-27] MEDS: INSULIN REGULAR, HUMAN 100 UNIT/ML 3 ML VIAL SQ PRN ×4 (00:16→17:59)
[2019-12-27] MEDS: BLOOD SUGAR DIAGNOSTIC 1 EACH STRIP IN SCH ×4 (00:35→17:56)
[2019-12-27] MEDS: GLUCERNA 1.2 1,000 ML BOTTLE GT PRN (00:36)
[2019-12-27 04:20] LABS: BASOPHILS # (AUTO) 0.1 /CMM (0.0-0.2); BASOPHILS % (AUTO) 0.9 % (0.0-2.0); HEMATOCRIT 34 % (39-51); HEMOGLOBIN 11.2 g/dL (13.5-17.5); LYMPHOCYTES # (AUTO) 0.6 /CMM (0.8-4.8); LYMPHOCYTES % (AUTO) 5.9 % (20.0-44.0); MEAN CORPUSCULAR HGB CONC 33 g/dl (31.0-36.0); MEAN CORPUSCULAR VOLUME 92 fL (80-96); MONOCYTES # (AUTO) 0.5 /CMM (0.1-1.30); MONOCYTES % (AUTO) 4.6 % (2.0-12.0); NEUTROPHILS # (AUTO) 9.4 /CMM (1.8-8.9); NEUTROPHILS % (AUTO) 88.6 % (43.0-81.0); PLATELET COUNT (AUTO) 182 /CMM (150-450); RED BLOOD CELL COUNT(AUTO) 3.67 MIL/uL (4.5-6.0); WHITE BLOOD COUNT (AUTO) 10.6 K/uL (4.3-11.0)
[2019-12-27] MEDS: PROPOFOL 100 ML IV PRN ×4 (04:31→19:18)
[2019-12-27 04:41] LABS: CALCIUM, SERUM 7.9 mg/dL (8.5-10.1); CREATININE 0.7 mg/dL (0.6-1.3); PHOSPHORUS 3.3 mg/dL (2.5-4.9); POTASSIUM 4.7 mmol/L (3.5-5.1)
--- NOTE | 2019-12-27 05:50 | NUR ---
REGISTRATION COORDINATOR: NO SIGNIFICANT KEN DURING THE SHIFT. VENT SETTINGS ORDERED AND TOLERATED WELL UNTIL 0500 (INCREASED FI02 TO 65% PT NOTED DESATURATING IN LOW 90s AND WT GOOD EFFECT WT 95% 02SAT AND ABOVE); REMAINS SEDATED WT DIPRIVAN AT 30MCG/KG/MIN, WITHDRAWS TO PAIN STIMULI. ST ON MONORAIL CHARGER OPERATOR WT HR IN LOW 100s DURING ADLs THEN BACK TO NSR. AFEBRILE. OGT AUSCULTATED & VERIFIED PLACEMENT WT GT FEEDING TOLERATING WELL WT 10CC RESIDUAL. BILAT. SOFT WRIST RESTRAINTS IN PLACE TO PREVENT SELF-EXTUBATION. SKIN AND CIRCULATION WNL. F/C PATENT AND INTACT DRAINING CLOUDY YELLOW URINE TO GRAVITY. HOB AT 35 DEGREES, BED IN LOWEST POSITION AND LOCKED, BED ALARM ACTIVATED WT SIDE RAILS UPX2. SAFETY PRECAUTION NOTED AT ALL TIMES.
--- NOTE | 2019-12-27 07:30 | NUR ---
RN OPENING NOTES RECEIVED PATIENT RESTING IN BED. PATIENT IS SEDATED ON DIPRIVAN RUNNING AT 30MCG. ON MECHANICAL VENTILATOR WITH SETTING ORDERED. TOLERATING WELL, SATURATION AT 96%, NO SIGNS OF RESPIRATORY DISTRESS NOTED. ON TELE MONITOR WITH SR/ST NOTED, HR GOES UP TO 120BPM. OGT IS INTACT, PATENT, AND FLUSHED WELL. NO RESIDUAL NOTED, TOLERATING FEEDING WELL. F/C IS INTACT, PATENT, AND DRAINING CLOUDY YELLOW URINE. ON BILATERAL WRIST RESTRAINTS, SAFETY MEASURES ARE INPLACE. FREQUENT ROUNDING IS DONE ALL NEEDS ATTENDED. AKIKO PICC LINE IS INTACT, PATENT, AND FLUSHED WELL. NO SIGNS OF INFECTION NOTED. SAFETY MAINTAINED, CALL LIGHT WITHIN REACH, WILL CONTINUE TO MONTOR CLOSELY.
[2019-12-27] MEDS: DEXAMETHASONE SOD PHOSPHATE 10 MG/ML VIAL IV SCH (08:57)
[2019-12-27] MEDS: ENOXAPARIN SODIUM 40 MG/0.4 ML DISP.SYRIN SQ SCH (08:58)
--- NOTE | 2019-12-27 11:28 | NUR ---
DECREASED FI02 PER . PELEG TO 50%. PATIENT DID NOT TOLERATE NEW SETTINGS, LOW SP02. PEEP THEN INCREASED TO PEEP OF 12 PER .PELEG. PATIENT
--- NOTE | 2019-12-27 11:33 | NUR ---
RT AFTER VENT CHANGES PATIENT SP02 STILL LOW (89%-91%) PATIENT FI02 INCREASED TO 60%. WILL CONTINUE TO MONITOR
[2019-12-27] MEDS: ACETAMINOPHEN 325 MG TABLET PO PRN (14:31)
--- NOTE | 2019-12-27 19:18 | NUR ---
RN NOTE NO ACUTE CHANGES TO PATIENT CONDITION DURING MY SHIFT. ALL PATIENT NEEDS MET, CALL LIGHT WITHIN REACH, ENDORSED TO PPM NURSE FOR CONTINUITY OF CARE.
--- NOTE | 2019-12-27 20:20 | NUR ---
SSIS ARCHITECT NOTES PATIENT IN BED, SEDATED, AND INTUBATED. TOLERATING CURRENT VENT SETTINGS WELL. NO SOB NAD AT THE MOMENT. ON BEDSIDE MONITOR, SHOWING NSR. FC TO THE GRAVITY. OGT FEEDING TOLERATING WELL W/NO RESIDUAL. ON BILATERAL SOFT WRIST RESTRAINTS. ASSESSED SKIN FOR CIRCULATION. BED LOCKED, IN LOWEST POSITION, SIDE RAILS X 2 UP. HOB ELEVATED. WILL TURN AND REPOSITION Q2H FOR SKIN INTEGRITY. WILL CONT. TO MONITOR.
[2019-12-28] VITALS (22 sets, daily range): BP systolic 85–149; BP diastolic 51–80
[2019-12-28] MEDS: BLOOD SUGAR DIAGNOSTIC 1 EACH STRIP IN SCH ×4 (00:12→17:48)
[2019-12-28] MEDS: INSULIN REGULAR, HUMAN 100 UNIT/ML 3 ML VIAL SQ PRN ×4 (00:13→17:49)
--- NOTE | 2019-12-28 01:23 | NUR ---
RT NOTE Pt rec'd orally intubated via ETT #7.5 secured at 23CM @ the lipline. Pt on [facility] vent on AC mode settings as charted. Sx'd for thick mod amt of clear secretions. Alarms are set and audible. Ambu bag bedside. Vent plugged into red outlet. Will continue to monitor closely. Addendum: 12/28/19 at 0124 by LIZETH DAHL RT Amended: Links added.
[2019-12-28] MEDS: PROPOFOL 100 ML IV PRN ×4 (01:41→20:31)
[2019-12-28 04:10] LABS: BASOPHILS % (AUTO) 0.1 % (0.0-2.0); EOSINOPHILS % (AUTO) 0.5 % (0.0-6.0); HEMATOCRIT 33 % (39-51); HEMOGLOBIN 10.8 g/dL (13.5-17.5); LYMPHOCYTES # (AUTO) 0.6 /CMM (0.8-4.8); LYMPHOCYTES % (AUTO) 6.1 % (20.0-44.0); MEAN CORPUSCULAR HGB CONC 33 g/dl (31.0-36.0); MEAN CORPUSCULAR VOLUME 92 fL (80-96); MONOCYTES # (AUTO) 0.6 /CMM (0.1-1.30); NEUTROPHILS # (AUTO) 8.4 /CMM (1.8-8.9); NEUTROPHILS % (AUTO) 87.3 % (43.0-81.0); PLATELET COUNT (AUTO) 194 /CMM (150-450); RED BLOOD CELL COUNT(AUTO) 3.55 MIL/uL (4.5-6.0); WHITE BLOOD COUNT (AUTO) 9.6 K/uL (4.3-11.0)
[2019-12-28 04:26] LABS: CREATININE 0.6 mg/dL (0.6-1.3); MAGNESIUM 1.9 mg/dL (1.8-2.4); PHOSPHORUS 2.7 mg/dL (2.5-4.9); POTASSIUM 4.4 mmol/L (3.5-5.1)
--- NOTE | 2019-12-28 07:15 | NUR ---
RN OPENING NOTE Received patient sedated in bed appears calm and relaxed. Has ETT 7.5/ and vent settings: AC 22 TV 500 FIO2 60 PEEP 12 tolerating well no signs of distress. Tele reading SR. OGT and feeding of Glucerna @30cc/hr in place and running. Ritchie catheter in place. AKIKO PICC line running Dirprivan @ 30mcg. Bilateral soft wrist restraints in place. Safety measures reinforced. Bed locked and on lowest position. Call light within reach. Will cont to monitor.
[2019-12-28] MEDS: DEXAMETHASONE SOD PHOSPHATE 10 MG/ML VIAL IV SCH (08:10)
[2019-12-28] MEDS: ENOXAPARIN SODIUM 40 MG/0.4 ML DISP.SYRIN SQ SCH (08:10)
--- NOTE | 2019-12-28 08:30 | NUR ---
SEDATION VACATION DONE BP 152/83 HR 104 RR 20 Patient was awake able to follow directions. Noted with increased effort in breathing. Placed back to sedation.
--- NOTE | 2019-12-28 15:00 | NUR ---
ADMINISTERED MOM FOR NO BOWEL MOVEMENT TODAY. LAST DOSE WAS 12/26/19. WILL CONT TO MONITOR.
[2019-12-28] MEDS: MAGNESIUM HYDROXIDE 30 ML UDC PO PRN (17:10)
--- NOTE | 2019-12-28 18:40 | NUR ---
RN CLOSING NOTE Patient in bed sedated no signs of distress. Sedation vacation done in the morning. Tele reading SR 90s. OGT in place checked for placement. Running Glucerna 1.2 @ 30cc/hr tolerating well. FC in place drained total 900ml. Repositioned q2h kept clean and dry. All due meds given. Vital signs kept within normal limits. AKIKO PICC line Diprivan @ 30mch/kg/hr running. Safety measures reinforced. Bed locked and on lowest position. Side rails up x2. Will endorse to material handler 1st shift nurse for nazia.
--- NOTE | 2019-12-28 19:15 | NUR ---
OUTSOLE BEVELER NOTES PATIENT IN BED, SEDATED, AND INTUBATED. TOLERATING CURRENT VENT SETTINGS WELL. NO SOB NAD AT THE MOMENT. ON BEDSIDE MONITOR, SHOWING NSR. FC TO THE GRAVITY. OGT FEEDING TOLERATING WELL W/10ML RESIDUAL. ON BILATERAL SOFT WRIST RESTRAINTS. ASSESSED SKIN FOR CIRCULATION. BED LOCKED, IN LOWEST POSITION, SIDE RAILS X 2 UP. HOB ELEVATED. WILL TURN AND REPOSITION Q2H FOR SKIN INTEGRITY. WILL CONT. TO MONITOR
--- NOTE | 2019-12-28 19:50 | NUR ---
RT NOTE PT RECEIVED ON CURRENT AC SETTINGS OF 22, 500, 60%, PEEP +15.
--- NOTE | 2019-12-28 20:00 | NUR ---
SPECIALTY MATTRESS ORDERED HAS BEEN DELIVERED
--- NOTE | 2019-12-28 20:09 | NUR ---
RT NOTE PT RECEIVED INTUBATED WITH 7.5 ET TUBE @ 23 CM. CUFF CHECKED VIA NEWSPAPER REPORTER. AMBU BAG/BACK UP TRACH @ BEDSIDE. SX DONE, ET TUBE SECURED AND PATENT. VENT PLUGGED TO RED OUTLET. ALARMS ON AND AUDIBLE. NO DISTRESS NOTED AT THIS TIME. WILL CONTINUE TO MONITOR T/O SHIFT. Addendum: 12/28/19 at 2009 by FLAVIA LEWIS RT Amended: Links added.
--- NOTE | 2019-12-28 20:15 | NUR ---
SELMA MATTRESS IS PLACED ON PT'S BED. NAD. WILL CONT TO MONITOR
[2019-12-28] MEDS ORDERED: BISACODYL SUPP (10 MG) 10 MG/SUPP.RECT SUPP.RECT RC PRN (22:00)
[2019-12-29] VITALS (61 sets, daily range): BP systolic 63–198; BP diastolic 33–113
[2019-12-29] MEDS: BLOOD SUGAR DIAGNOSTIC 1 EACH STRIP IN SCH ×4 (00:07→17:53)
[2019-12-29] MEDS: INSULIN REGULAR, HUMAN 100 UNIT/ML 3 ML VIAL SQ PRN ×3 (00:09→18:01)
[2019-12-29 04:12] LABS: BASOPHILS % (AUTO) 0.4 % (0.0-2.0); EOSINOPHILS % (AUTO) 1.2 % (0.0-6.0); HEMATOCRIT 35 % (39-51); HEMOGLOBIN 11.4 g/dL (13.5-17.5); LYMPHOCYTES # (AUTO) 0.7 /CMM (0.8-4.8); LYMPHOCYTES % (AUTO) 6.2 % (20.0-44.0); MEAN CORPUSCULAR HGB CONC 33 g/dl (31.0-36.0); MEAN CORPUSCULAR VOLUME 91 fL (80-96); MONOCYTES # (AUTO) 0.5 /CMM (0.1-1.30); MONOCYTES % (AUTO) 4.3 % (2.0-12.0); NEUTROPHILS # (AUTO) 10.4 /CMM (1.8-8.9); NEUTROPHILS % (AUTO) 87.9 % (43.0-81.0); PLATELET COUNT (AUTO) 208 /CMM (150-450); RED BLOOD CELL COUNT(AUTO) 3.84 MIL/uL (4.5-6.0); WHITE BLOOD COUNT (AUTO) 11.8 K/uL (4.3-11.0)
[2019-12-29 04:35] LABS: CALCIUM, SERUM 8.3 mg/dL (8.5-10.1); CARBON DIOXIDE 31 mmol/L (21-32); CHLORIDE 101 mmol/L (98-107); CREATININE 0.7 mg/dL (0.6-1.3); GLUCOSE 189 mg/dL (74-106); MAGNESIUM 2.1 mg/dL (1.8-2.4); PHOSPHORUS 3.4 mg/dL (2.5-4.9); POTASSIUM 4.5 mmol/L (3.5-5.1); SODIUM SERUM 136 mmol/L (136-145); UREA NITROGEN, BLOOD 33 mg/dL (7-18)
[2019-12-29] MEDS: PROPOFOL 100 ML IV PRN ×3 (04:35→20:16)
[2019-12-29 04:39] LABS: CHOLESTEROL 126 mg/dL (<200); HDL CHOLESTEROL 34 mg/dL (40-60); LDL 82 mg/dL (0-99); TRIGLYCERIDES 111 mg/dL (30-150)
[2019-12-29] MEDS: GLUCERNA 1.2 1,000 ML BOTTLE GT PRN (06:13)
--- NOTE | 2019-12-29 08:00 | NUR ---
ICU/RN INITIAL NOTES,AM RECEIVED REPORT FROM NIGHT NURSE. PT INTUBATED AND SEDATED. ETT 7.5/23 CM AT THE LIP. PT ON VENT SETTINGS ORDERED BY MD, NO ACUTE DISTRESS NOTED. PT ON TELE, SINUS TACH. GORDON CATH IN PLACE, DRAINING URINE. OG TUBE IN PLACE, CLAMPED, PLACEMENT VERIFIED. PIVS PATENT AND INTACT, NO S/S OF INFECTION OR INFILTRATION NOTED. DIPRIVAN INFUSING FOR SEDATION, WILL DO SEDATION VACATION. ALL NEEDS WILL BE ATTENDED TO, SAFETY MEASURES TAKEN, BED IN LOW POSITION, SIDE RIALS UP, BILATERAL WRIST RESTRAINTS ASSESSED PER PROTOCOL.
[2019-12-29 08:56] LABS: ABG BASE EXCESS 2.7 mmol/L; ABG OXYGEN SATURATION 91.5 % (92.0-98.5); ABG PH 7.487 (7.350-7.450); ABG PO2 59.2 mmHg (75.0-100.0); AaDO2 257.9 mmHg; COHb 1.2 % (0.5-1.5); MetHb 0.3 % (0.0-1.5); O2Hb 90.1 % (94.0-97.0); SITE, ABG Right Radial; VENT MODE, BG ac 22 500 50% +15
[2019-12-29] MEDS: DEXAMETHASONE SOD PHOSPHATE 10 MG/ML VIAL IV SCH (09:17)
[2019-12-29] MEDS: ENOXAPARIN SODIUM 40 MG/0.4 ML DISP.SYRIN SQ SCH (09:18)
--- NOTE | 2019-12-29 13:25 | NUR ---
ICU/RN: BP DROPPED TO 67/45. INFORMED DR.TIM KWONG. RECEIVED ORDERS FOR BOLUS OF 1LITER AND LEVO NEEDED PER PROTOCOL TO MAINTAIN SBP >90. WILL FOLLOW THROUGH.
[2019-12-29] MEDS: ACETAMINOPHEN 325 MG TABLET PO PRN (13:33)
[2019-12-29] MEDS ORDERED: IV NS 0.9% 1,000 ML IV PRN (14:00)
[2019-12-29] MEDS: NOREPINEPHRINE 8 MG in IV NS 0.9% 242 ML IV PRN (16:18)
--- NOTE | 2019-12-29 16:18 | NUR ---
ICU/RN: LEVO STARTED BP 63/41, HR 107. WILL CONTINUE TO MONITOR.
--- NOTE | 2019-12-29 18:56 | NUR ---
ICU/RN: ENDING NOTES,AM REPORT WILL BE ENDORSED TO NIGHT NURSE FOR KEN. ON VENT SETTINGS ORDERED BY MD. NO ACUTE DISTRESS NOTED. PT ON LOW DOSE LEVO FOR BP SUPPORT. ALL NEEDS ATTENDED TO. SAFETY MEASURES TAKEN BED IN LOW POSITION, SIDE RAILS UP, CALL LIGHT WITHIN REACH. WILL CONTINUE CARE.
--- NOTE | 2019-12-29 19:10 | NUR ---
TESTBOARD OPERATOR OPENING NOTES: Received pt in bed, intubated on mechanical ventilation 7.11/10 at [facility], tolerating settings well. On isolation for positive Covid. ST on tele monitor. OGT patent and flushing with minimal residuals noted. Feeding of Glucerna infusing at 40ml/hr with goal of 50ml/hr. Will titrate. AKIKO PICC line patent and flushing. Dressing c/d/i. Diprivan infusing at 30mcg/kg/min. Levo infusing at 0.05mcg/kg/min. Will titrate per protocol. Safety measures in place. Will continue to monitor. Addendum: 12/29/19 at 1936 by KATIANA PALACIO RN Ritchie cath in place, draining urine via gravity.
[2019-12-29] MEDS ORDERED: FEE PK DOSING 1 MIN EA MC ONE (20:19)
[2019-12-29] MEDS ORDERED: MEROPENEM 500 MG in IV NS 0.9% 50 ML IV ONE (21:00)
[2019-12-29] MEDS ORDERED: VANCOMYCIN 1.25 GM in IV D5W 250 ML IV ONE (22:00)
[2019-12-30] VITALS (75 sets, daily range): BP systolic 87–129; BP diastolic 41–73
[2019-12-30] MEDS: INSULIN REGULAR, HUMAN 100 UNIT/ML 3 ML VIAL SQ PRN ×5 (00:20→23:52)
[2019-12-30] MEDS: BLOOD SUGAR DIAGNOSTIC 1 EACH STRIP IN SCH ×4 (00:20→17:56)
--- NOTE | 2019-12-30 01:40 | NUR ---
CONTROL CLERK NOTE: RT titrated pt's FIO2 from 80% to 45%. Pt tolerating well. SpO2 98-99%. Will continue to monitor.
[2019-12-30] MEDS: PROPOFOL 100 ML IV PRN ×4 (04:00→21:46)
[2019-12-30 04:52] LABS: BASOPHILS # (AUTO) 0.1 /CMM (0.0-0.2); BASOPHILS % (AUTO) 0.8 % (0.0-2.0); EOSINOPHILS % (AUTO) 0.7 % (0.0-6.0); HEMATOCRIT 33 % (39-51); HEMOGLOBIN 11.2 g/dL (13.5-17.5); LYMPHOCYTES # (AUTO) 0.5 /CMM (0.8-4.8); LYMPHOCYTES % (AUTO) 3.8 % (20.0-44.0); MEAN CORPUSCULAR HGB CONC 33 g/dl (31.0-36.0); MEAN CORPUSCULAR VOLUME 92 fL (80-96); MONOCYTES # (AUTO) 0.6 /CMM (0.1-1.30); MONOCYTES % (AUTO) 4.2 % (2.0-12.0); NEUTROPHILS # (AUTO) 12.8 /CMM (1.8-8.9); NEUTROPHILS % (AUTO) 90.5 % (43.0-81.0); PLATELET COUNT (AUTO) 237 /CMM (150-450); RED BLOOD CELL COUNT(AUTO) 3.64 MIL/uL (4.5-6.0); WHITE BLOOD COUNT (AUTO) 14.2 K/uL (4.3-11.0)
[2019-12-30 04:54] LABS: CALCIUM, SERUM 7.7 mg/dL (8.5-10.1); CREATININE 0.7 mg/dL (0.6-1.3); MAGNESIUM 2.2 mg/dL (1.8-2.4); PHOSPHORUS 3.3 mg/dL (2.5-4.9); POTASSIUM 4.6 mmol/L (3.5-5.1)
[2019-12-30] MEDS: MEROPENEM 500 MG in IV NS 0.9% 100 ML IV SCH ×3 (05:00→20:18)
[2019-12-30] MEDS: GLUCERNA 1.2 1,000 ML BOTTLE GT PRN (05:08)
--- NOTE | 2019-12-30 05:41 | NUR ---
GOLF CART ATTENDANT NOTE: 0456: Janessa from lab called to report critical lab value of glucose:387. Rechecked pt's glucose and got 273. Pt currently on Q6H accuchecks and on moderate sliding scale. Pt also receiving Dexamethasone 6mg IV daily. Charge nurse aware.
[2019-12-30 06:16] LABS: ABG BASE EXCESS 2.4 mmol/L; ABG OXYGEN SATURATION 94.1 % (92.0-98.5); ABG PH 7.458 (7.350-7.450); ABG PO2 69.5 mmHg (75.0-100.0); AaDO2 208.1 mmHg; COHb 0.6 % (0.5-1.5); MetHb 0.1 % (0.0-1.5); O2Hb 93.4 % (94.0-97.0); PEEP,BG 15 cm H2O; SITE, ABG Left Radial; VENT MODE, BG AC 22 500 45% +15
--- NOTE | 2019-12-30 06:49 | NUR ---
TYPEWRITERS FUNCTIONAL TESTER CLOSING NOTES: Pt remains intubated on mechanical ventilation, tolerating settings well. Isolation precautions in place. SR on tele monitor. OGTF Glucerna 1.2 infusing at 40ml/hr tolerating well. Residuals noted to be 40-50ml throughout shift. On STRIP MACHINE TENDER restraints. AKIKO PICC line with Diprivan infusing at 30mcg. Levo infusing at 0.03mcg/kg/min. Titrated per protocol. Merrem infusing at 33.33ml/hr. Tolerating all well. Ritchie cath in place draining urine via gravity. All meds given as ordered. Kept clean and dry. Safety measures in place. Will endorse to AM nurse for KEN.
--- NOTE | 2019-12-30 08:00 | NUR ---
RN NOTES RECEIVED PATIENT SEDATED WITH DIPRIVAN AT 30MCG/MIN. ORALLY INTUBATED. ETT TUBE INTACT. NO INDICATION OF SHORTNESS OF BREATH NOTED AT THIS TIME. TOLERATING VENT SETTING AND SATING FINE. AFEBRILE. OGT IN PLAC, PLACEMENT VERIFIED THROUGH AUSCULTATION AND ASPIRATING GASTRIC RESIDUAL, NONE TAKEN AT THIS TIME. GT RUNNING AT DESIRED RATE. BILATERAL SOFT RESTRAINTS IN PLACE, REMOVE AND REPLACED FOR SKIN INTEGRITY. WITH ONGOING LEVOPHED AT 0.03MCG/KG/MIN WILL TITRATE ABLE. GORDON CATHETER IN PLACE DRAINING TO ORANGE URINE. HOB KEEP ELEVATED. SAFETY MEASURES OBSERVED AND MAINTAINED. WILL CONTINUE TO MONITOR PATIENT AND IMPLEMENT ISOLATION.
[2019-12-30] MEDS: DEXAMETHASONE SOD PHOSPHATE 10 MG/ML VIAL IV SCH (08:21)
[2019-12-30] MEDS: ENOXAPARIN SODIUM 40 MG/0.4 ML DISP.SYRIN SQ SCH (08:23)
[2019-12-30] MEDS ORDERED: VANCOMYCIN 1.25 GM in IV D5W 250 ML IV SCH (13:00)
[2019-12-30] MEDS: VANCOMYCIN 1.25 GM in IV D5W 250 ML IV SCH (17:40)
--- NOTE | 2019-12-30 18:30 | NUR ---
N NOTES PATIENT WITH NO ACUTE CHANGES WITHIN THE ENTIRE SHIFT. NOT ON ANY DISTRESS. NO INDICATION OF PAIN NOTED AT THIS TIME. NO SIGN OF BLEEDING NOTED. STILL SEDATED WITH 30MCG/KG/MIN OF DIPRIVAN AND LEVOPHED AT 0.03MCG/KG/MIN. ALL NURSING NEEDS AND MET. SAFETY MEASURES IN PLACE. CALL LIGHT WITHIN REACH
--- NOTE | 2019-12-30 19:45 | NUR ---
ICU/YOUTH MINISTRY DIRECTOR REPORT RECEIVED FROM THE TO DAY NURSE. SEE FLOWSHEET FOR ASSESSMENT, SKIN ISSUES ARE ADDRESSED ON FLOWSHEET ALONG WITH INTERVENTION TO EACH. PT PROPERLY SEDATED WITH DIPRIVAN AT 30MCG. PT ORALLY INTUBATED WITH SATURATION AT 100'S%. WILL MONITOR THIS PT AND HIS SATURATION. PT WAS TURNED AND REPOSITIONED FOR COMFORT AND CARE. NO ACUTE DISTRESS SEEN AT THIS TIME, WILL CONTINUE TO MONITOR THIS PT.
--- NOTE | 2019-12-30 22:00 | NUR ---
ICU/CYBER SOFTWARE ENGINEER PT WAS PROVIDED ORAL CARE AT THIS TIME, THEN PT GIVEN PM CARE. PT TOLERATED THIS WELL, REMAINS ON CURRENT VENT WITH SATURATION AT 99%. PT WAS TURNED AND REPOSITIONED FOR COMFORT AND CARE. WILL CONTINUE TO MONITOR THIS PT
[2019-12-31] VITALS (98 sets, daily range): BP systolic 68–153; BP diastolic 36–81
[2019-12-31] MEDS: BLOOD SUGAR DIAGNOSTIC 1 EACH STRIP IN SCH ×4 (00:07→17:45)
--- NOTE | 2019-12-31 00:10 | NUR ---
ICU/REGISTERED NURSE CARDIAC TELEMETRY MIDNIGHT BLOOD SUGAR WAS 276, WITH WAS COVERED WITH SLIDING SCALE ORDERED BY MD. WILL CONTINUE TO MONITOR THIS PER MD ORDERS AND HOSPITAL PROTOCOL.
--- NOTE | 2019-12-31 02:30 | NUR ---
ICU/COSTUME DESIGNER PT WAS PROVIDED ORAL CARE AT THIS TIME, THEN PT GIVEN AM CARE. PT TOLERATED THIS WELL, REMAINS ON CURRENT VENT WITH SATURATION AT 99%. PT WAS TURNED AND REPOSITIONED FOR COMFORT AND CARE. WILL CONTINUE TO MONITOR THIS PT
[2019-12-31] MEDS: PROPOFOL 100 ML IV PRN ×3 (03:01→21:40)
[2019-12-31] MEDS: INSULIN REGULAR, HUMAN 100 UNIT/ML 3 ML VIAL SQ PRN ×3 (03:57→17:53)
[2019-12-31] MEDS: MEROPENEM 500 MG in IV NS 0.9% 100 ML IV SCH ×3 (04:00→21:16)
--- NOTE | 2019-12-31 04:20 | NUR ---
ICU/MEDICAL EDUCATION COORDINATOR AM LABS WERE DONE, WAIT FOR ANY ABNORMAL RESULTS.
[2019-12-31 04:23] LABS: BASOPHILS % (AUTO) 0.3 % (0.0-2.0); HEMATOCRIT 33 % (39-51); HEMOGLOBIN 10.7 g/dL (13.5-17.5); LYMPHOCYTES # (AUTO) 0.6 /CMM (0.8-4.8); LYMPHOCYTES % (AUTO) 4.8 % (20.0-44.0); MEAN CORPUSCULAR HGB CONC 32 g/dl (31.0-36.0); MEAN CORPUSCULAR VOLUME 91 fL (80-96); MONOCYTES # (AUTO) 0.5 /CMM (0.1-1.30); MONOCYTES % (AUTO) 3.9 % (2.0-12.0); NEUTROPHILS # (AUTO) 12.1 /CMM (1.8-8.9); PLATELET COUNT (AUTO) 252 /CMM (150-450); RED BLOOD CELL COUNT(AUTO) 3.63 MIL/uL (4.5-6.0); WHITE BLOOD COUNT (AUTO) 13.3 K/uL (4.3-11.0)
[2019-12-31] MEDS ORDERED: INSULIN REGULAR, HUMAN 100 UNIT/ML 3 ML VIAL SQ ONE (04:30)
[2019-12-31 04:35] LABS: CALCIUM, SERUM 7.8 mg/dL (8.5-10.1); CREATININE 0.8 mg/dL (0.6-1.3); MAGNESIUM 2.1 mg/dL (1.8-2.4); POTASSIUM 4.5 mmol/L (3.5-5.1)
--- NOTE | 2019-12-31 05:20 | NUR ---
ICU/TIMEKEEPING SUPERVISOR MORNING BLOOD SUGAR WAS 493, THIS WAS COVERED WITH SLIDING SCALE ORDERED BY MD, 15 UNITS REGULAR INSULIN. ALSO AT THIS TIME CALL WAS MADE TO MD FOR ADDITIONAL COVERAGE. MARIELY MARIEE GAVE ORDER FOR 10 ADDITION UNITS REGULAR AND WILL CONTINUE TO MONITOR THIS PER MD ORDERS AND HOSPITAL PROTOCOL. AND ANOTHER ACCU CHECK AT 0800.
--- NOTE | 2019-12-31 05:23 | NUR ---
RT NOTE Pt rec'd orally intubated via ETT secured at 23CM @ the lipline. Pt on mech vent on AC mode settings as charted. Sx'd for thick small amt of pale yellow secretions. Alarms are set and audible. Ambu bag bedside. Vent plugged into red outlet. Will continue to monitor closely.
[2019-12-31 08:03] LABS: ABG BASE EXCESS 3.3 mmol/L; ABG OXYGEN SATURATION 95.4 % (92.0-98.5); ABG PH 7.454 (7.350-7.450); ABG PO2 78.4 mmHg (75.0-100.0); COHb 0.6 % (0.5-1.5); MetHb 0.3 % (0.0-1.5); O2Hb 94.5 % (94.0-97.0); SITE, ABG Right Radial; VENT MODE, BG AC 22 500 +15 45%
[2019-12-31] MEDS: DEXAMETHASONE SOD PHOSPHATE 10 MG/ML VIAL IV SCH (09:15)
[2019-12-31] MEDS: HYDROCORTISONE SOD SUCCINATE 100 MG/2 ML VIAL IV SCH ×3 (09:15→17:45)
[2019-12-31] MEDS: ENOXAPARIN SODIUM 40 MG/0.4 ML DISP.SYRIN SQ SCH (09:19)
[2019-12-31] MEDS: VANCOMYCIN 1.25 GM in IV D5W 250 ML IV SCH (10:41)
[2019-12-31] MEDS: NOREPINEPHRINE 8 MG in IV NS 0.9% 242 ML IV PRN (17:46)
[2019-12-31] MEDS: GLUCERNA 1.2 1,000 ML BOTTLE GT PRN (17:51)
[2019-12-31] MEDS ORDERED: DEXTROSE 50%-WATER 50 ML DISP.SYRIN IV PRN (19:30)
[2019-12-31] MEDS: VANCOMYCIN 1 GM in IV D5W 250 ML IV SCH (22:16)
[2020-01-01] VITALS (83 sets, daily range): BP systolic 86–170; BP diastolic 50–113
[2020-01-01] MEDS: MEROPENEM 500 MG in IV NS 0.9% 100 ML IV SCH ×3 (05:19→21:22)
[2020-01-01] MEDS: INSULIN REGULAR, HUMAN 100 UNIT/ML 3 ML VIAL SQ PRN ×4 (06:04→23:33)
[2020-01-01] MEDS: PROPOFOL 100 ML IV PRN ×2 (06:05→16:56)
[2020-01-01] MEDS: BLOOD SUGAR DIAGNOSTIC 1 EACH STRIP IN SCH ×5 (06:09→23:29)
[2020-01-01 06:55] LABS: BASOPHILS % (AUTO) 0.3 % (0.0-2.0); EOSINOPHILS % (AUTO) 0.1 % (0.0-6.0); HEMATOCRIT 29 % (39-51); HEMOGLOBIN 9.6 g/dL (13.5-17.5); LYMPHOCYTES # (AUTO) 0.6 /CMM (0.8-4.8); LYMPHOCYTES % (AUTO) 6.9 % (20.0-44.0); MEAN CORPUSCULAR HGB CONC 33 g/dl (31.0-36.0); MEAN CORPUSCULAR VOLUME 91 fL (80-96); MONOCYTES # (AUTO) 0.6 /CMM (0.1-1.30); MONOCYTES % (AUTO) 7.2 % (2.0-12.0); NEUTROPHILS # (AUTO) 6.9 /CMM (1.8-8.9); NEUTROPHILS % (AUTO) 85.5 % (43.0-81.0); PLATELET COUNT (AUTO) 222 /CMM (150-450); RED BLOOD CELL COUNT(AUTO) 3.21 MIL/uL (4.5-6.0)
--- NOTE | 2020-01-01 07:10 | NUR ---
RN NOTES PATIENT REMAINED STABLE NO SIGNIFICANT CHANGED STRICTLY ON ISOLATION FOR + COVID 19. AFEBRILE THROUGHOUT THE SHIFT ORALLY INTUBATED VENT SETTING TOLERATED WELL. SEDATED WITH DIPRIVAN. ALL DUE MEDICINE ADMINISTERED ORDERED. IV SITE INTACT AND PATENT. OGTF PATENT WITH HOB KEPT ELEVATED. SKIN CARE PROVIDED, WOUND CONSULT TRIGGER DUE TO OPEN PRESSURE SORE. KEPT PT CLEAN AND DRY. T/R Q2H AND MUCH POSSIBLE. ENDORSED CONTINUITY OF CARE TO AM NURSE
[2020-01-01 07:14] LABS: CALCIUM, SERUM 8.1 mg/dL (8.5-10.1); CARBON DIOXIDE 31 mmol/L (21-32); CHLORIDE 103 mmol/L (98-107); CREATININE 0.5 mg/dL (0.6-1.3); GLUCOSE 258 mg/dL (74-106); MAGNESIUM 1.9 mg/dL (1.8-2.4); PHOSPHORUS 3.3 mg/dL (2.5-4.9); SODIUM SERUM 137 mmol/L (136-145); UREA NITROGEN, BLOOD 35 mg/dL (7-18)
--- NOTE | 2020-01-01 08:07 | NUR ---
WOUND CARE CONSULT: REVIEWED CHART,NURSING DOCUMENTATION AND PHOTO WHICH SHOWS SACRAL DEEP TISSUE INJURY IN EVOLUTION. PT NOTED TO HAVE MULTIPLE CO-MORBIDITIES INCLUDING RESPIRATORY FAILURE, COVID 19 INFECTION WITH PNEUMONIA, ACUTE KIDNEY INJURY, DIABETES AND NSTEMI. DUE TO MULTIPLE CO-MORBIDITIES, FURTHER SKIN BREAKDOWN MAY BE UNAVOIDABLE. RECOMMEND SURGICAL CONSULT. DR TED HAWKINS NOTIFIED OF CONSULT REQUEST. RECOMMENDATIONS MADE FOR SKIN PROTECTION AND WOUND CARE. DISCUSSED WITH NURSING STAFF. PT IS ON FIRST STEP LOW AIRLOSS MATTRESS. IN AGREEMENT WITH PLAN OF CARE.
[2020-01-01] MEDS: HYDROCORTISONE SOD SUCCINATE 100 MG/2 ML VIAL IV SCH ×3 (08:55→17:37)
[2020-01-01] MEDS: DEXAMETHASONE SOD PHOSPHATE 10 MG/ML VIAL IV SCH (08:55)
[2020-01-01] MEDS: ENOXAPARIN SODIUM 40 MG/0.4 ML DISP.SYRIN SQ SCH (08:57)
[2020-01-01 09:06] LABS: ABG BASE EXCESS 3.2 mmol/L; ABG OXYGEN SATURATION 96.5 % (92.0-98.5); ABG PCO2 38.1 mmHg (35.0-45.0); ABG PH 7.469 (7.350-7.450); ABG PO2 87.7 mmHg (75.0-100.0); AaDO2 189.8 mmHg; MetHb 0.3 % (0.0-1.5); O2Hb 96.2 % (94.0-97.0); PEEP,BG 15 cm H2O; SITE, ABG Right Radial; VENT MODE, BG AC22; VT, ABG 500 mL
[2020-01-01] MEDS: VANCOMYCIN 1 GM in IV D5W 250 ML IV SCH ×2 (10:00→17:02)
--- NOTE | 2020-01-01 10:00 | NUR ---
RN NOTES SPOKE TO MUNDO BECKETT REGARDING VANCOMYCIN DUE AT 1000, TROUGH AT 22. PER SOPHY, HOLD VANCOMYCIN DOSE AT THIS TIME.
--- NOTE | 2020-01-01 15:00 | NUR ---
RN NOTES SPOKE TO MUNDO BATISTA PER THE LATTER OKAY TO GIVE VANCOMYCIN AT DIFFERENT TIME SCHEDULE
[2020-01-01] MEDS: METFORMIN 500 MG TABLET PO SCH (17:37)
[2020-01-01] MEDS: IV NS 0.9% 250 ML IV PRN (18:05)
--- NOTE | 2020-01-01 19:00 | NUR ---
RN NOTES PATIENT WITH NO ACUTE CHANGES WITHIN THE ENTIRE SHIFT. NOT ON ANY DISTRESS. NO INDICATION OF PAIN NOTED AT THIS TIME.
--- NOTE | 2020-01-01 19:45 | NUR ---
RN NOTE RECEIVED PATIENT ON TRACH/ETT 7. AC22 TV 500 FIO2 45% PEEP 15,ALERT SEDATED OPEN EYES,ON ISOLATION FOR COVID 19 POSITIVE ,ON SINUS RHYTHM ON ORAL G-TUBE FEEDING,GLUCERNA 1.2 30 CC/HR ON GORDON CATHETER,URINE YELLOW AND CLEAR,ON DIPRIVAN DRIP,IV SITE IS ON RIGHT UPPER ARM PICC LINE,INTACT PATENT,HEAD OF BED ELEVATED,CONTINUE TO MONITOR
[2020-01-02] VITALS (51 sets, daily range): BP systolic 75–187; BP diastolic 44–114
[2020-01-02] MEDS: MEROPENEM 500 MG in IV NS 0.9% 100 ML IV SCH ×3 (04:13→21:12)
[2020-01-02] MEDS: PROPOFOL 100 ML IV PRN ×4 (04:13→22:39)
[2020-01-02 04:30] LABS: CALCIUM, SERUM 8.1 mg/dL (8.5-10.1); CARBON DIOXIDE 33 mmol/L (21-32); CHLORIDE 107 mmol/L (98-107); CREATININE 0.5 mg/dL (0.6-1.3); GLUCOSE 148 mg/dL (74-106); POTASSIUM 3.7 mmol/L (3.5-5.1); SODIUM SERUM 141 mmol/L (136-145); UREA NITROGEN, BLOOD 27 mg/dL (7-18)
[2020-01-02] MEDS: BLOOD SUGAR DIAGNOSTIC 1 EACH STRIP IN SCH ×3 (06:19→17:16)
[2020-01-02] MEDS: INSULIN REGULAR, HUMAN 100 UNIT/ML 3 ML VIAL SQ PRN ×2 (06:25→18:16)
--- NOTE | 2020-01-02 06:56 | NUR ---
RN NOTE PATIENT REMAINS ON TRACH/ETT 7.11/10 AC22 FIO2 45% AND PEEP 15 SEDATED,OPEN EYES ON OGT FEEDING GLUCERNA 1.2 30 CC/HRS, ON GORDON CATHETER WITH GOOD URINE OUTPUT,URINE YELLOW AND CLEAR,ALL DUE MEDS GIVEN MD ORDERED TOLERATED WELL,KEPT CLEAN AND DRY ALL THE TIME,HEAD OF BED ELEVATED,ENDORSE NEXT COMING SHIFT,FOR CONTINUATION OF CARE.
--- NOTE | 2020-01-02 07:35 | NUR ---
ICU/RN PT IS INTUBATED ON THE VENT AC MODE.SAT O2-100%.V/S STABLE AFEBRILE.SEDATED WITH DIPRIVAN.OPEN HIS EYES.REACTIVE ON PAIN STIMULATION.PICC LINE ON THE RIGHT UPPER ARM.OG TUBE INFUSING WITH GLYTROL AT 30 ML/HR NO RESIDUAL.F/C DRAINING WITH YELLOW URINE.LOWER BACK WOUND NOTED COVERED WITH MEPILEX.
[2020-01-02 07:52] LABS: ABG BASE EXCESS 6.3 mmol/L; ABG OXYGEN SATURATION 93.6 % (92.0-98.5); ABG PCO2 40.6 mmHg (35.0-45.0); ABG PH 7.489 (7.350-7.450); ABG PO2 68.2 mmHg (75.0-100.0); AaDO2 206.5 mmHg; COHb 0.4 % (0.5-1.5); MetHb 0.3 % (0.0-1.5); O2Hb 92.9 % (94.0-97.0); PEEP,BG 15 cm H2O; SITE, ABG Left Radial; VT, ABG 500 mL
[2020-01-02] MEDS: HYDROCORTISONE SOD SUCCINATE 100 MG/2 ML VIAL IV SCH ×3 (08:01→16:10)
[2020-01-02] MEDS: DEXAMETHASONE SOD PHOSPHATE 10 MG/ML VIAL IV SCH (08:01)
[2020-01-02] MEDS: METFORMIN 500 MG TABLET PO SCH ×2 (08:01→16:10)
[2020-01-02] MEDS: ENOXAPARIN SODIUM 40 MG/0.4 ML DISP.SYRIN SQ SCH (08:02)
[2020-01-02] MEDS: VANCOMYCIN 1 GM in IV D5W 250 ML IV SCH (08:10)
--- NOTE | 2020-01-02 09:40 | NUR ---
ICU/RN DUE MEDS ARE GIVEN ORDERED.SUCTION PROVIDED.REPOSITION FOR COMFORT.
[2020-01-02] MEDS: NOREPINEPHRINE 8 MG in IV NS 0.9% 242 ML IV PRN ×2 (16:08→23:19)
[2020-01-02] MEDS: Z GUARD REMEDY 2 OZ OINT TP PRN (16:08)
[2020-01-02] MEDS: IV NS 0.9% 250 ML IV PRN (17:17)
[2020-01-02] MEDS: HYDROCODONE/APAP 5/325MG 1 EACH TABLET PO PRN (17:40)
--- NOTE | 2020-01-02 19:21 | NUR ---
ICU/RN HR 177. MD NOTIFIED.ADENOSINE 12 ORDERED .STAT EKG ORDERED.
[2020-01-02] MEDS ORDERED: ADENOSINE 6 MG/2 ML VIAL IVP ONE (19:30)
--- NOTE | 2020-01-02 19:30 | NUR ---
RN NOTES RECEIVED PATIENT ORALLY INTUBATED WITH ETT 7.5 POSITION AT 23 WITH VENT SETTING OF AC 22, TV 500 FIO2 45 AND PEEP 15 SEDATED WITH DIPRIVAN @ 50 MCG/KG/MIN. HR 177-180'S DNP VARGHESE AT BEDSIDE WITH ORDER TO ADENOSINE IVP AND STAT EKG . EKG DONE REVEALS ST WITH POSS. AWAITING FOR THE MEDICINE TO VERIFIED. OGT KEPT IN PLACED HOB ELEVATED WITH 40 CC RESIDUAL PATENCY CHECKED. AND FLUSHED WELL. IV SITE ON AKIKO PICC LINE INTACT AND PATENT WITH DIPRIVAN AND LEVOPHED . PATIENT WILL CLOSELY MONITOR KEPT PT CLEAN AND DRY. ISOLATION PRECAUTION STRICTLY OBSERVED FOR COVID 19 +.
--- NOTE | 2020-01-02 20:40 | NUR ---
RN NOTES ADENOSINE 12 MG IVP ADMINISTERED ORDERED BY DR. KWONG DNP FOR HR 177. HR WENT DOWN TO 140'S WILL CONTINUE TO MONITOR.
[2020-01-02] MEDS ORDERED: ENOXAPARIN SODIUM 80 MG/0.8 ML DISP.SYRIN SQ SCH (21:00)
[2020-01-03] VITALS (93 sets, daily range): BP systolic 57–173; BP diastolic 33–95
[2020-01-03] MEDS: INSULIN REGULAR, HUMAN 100 UNIT/ML 3 ML VIAL SQ PRN ×5 (00:17→23:56)
[2020-01-03] MEDS: BLOOD SUGAR DIAGNOSTIC 1 EACH STRIP IN SCH ×4 (00:32→17:27)
[2020-01-03] MEDS: VANCOMYCIN 1 GM in IV D5W 250 ML IV SCH ×2 (03:35→21:57)
[2020-01-03] MEDS: PROPOFOL 100 ML IV PRN ×3 (04:05→16:24)
[2020-01-03] MEDS: MEROPENEM 500 MG in IV NS 0.9% 100 ML IV SCH ×3 (04:29→20:00)
[2020-01-03 05:14] LABS: CHOLESTEROL 177 mg/dL (<200); HDL CHOLESTEROL 34 mg/dL (40-60); LDL 124 mg/dL (0-99); TRIGLYCERIDES 135 mg/dL (30-150)
[2020-01-03 05:32] LABS: CALCIUM, SERUM 8.4 mg/dL (8.5-10.1); CREATININE 0.9 mg/dL (0.6-1.3); POTASSIUM 3.8 mmol/L (3.5-5.1)
--- NOTE | 2020-01-03 07:15 | NUR ---
RN NOTES PATIENT STRICTLY ON ISOLATION FOR + COVID 19. ORALLY INTUBATED VENT SETTING TOLERATED WELL. ST ON TELE MONITOR NO EPISODE OF SVT NOTED AFTER ADENOSINE ADMINSITERED. NO FACIAL S/S OF CHEST PAIN, AFEBRILE. SEDATED WITH DIPRIVAN. ALL DUE MEDICINE ADMINISTERED ORDERED. IV SITE INTACT AND PATENT. OGTF PATENT WITH HOB KEPT ELEVATED. SKIN CARE PROVIDE, KEPT PT CLEAN AND DRY. T/R Q2H AND MUCH POSSIBLE. ENDORSED CONTINUITY OF CARE TO AM NURSE.
--- NOTE | 2020-01-03 07:15 | NUR ---
RN INITIAL NOTES RECEIVED PT INTUBATED, ON VENT. NO RESPIRATORY DISTRESS NOTED. NO SOB NOTED. HOB ELEVATED. NO SOGNS OF PAIN NOTED. PT SEDATED, ON DIPRIVAN AT 25MCG/KG/MIN. ON LEVO AT 0.1MCG/KG/MIN. WILL TITRATE ACCORDINGLY. AKIKO PICC IN PLACE. TOLERATING TUBE FEEDING. NO RESIDUAL NOTED. FC IN PLACE. NO HEMATURIA NOTED. BLE ELEVATED. WILL MONITOR
[2020-01-03] MEDS: METFORMIN 500 MG TABLET PO SCH ×2 (08:46→17:27)
[2020-01-03] MEDS: HYDROCORTISONE SOD SUCCINATE 100 MG/2 ML VIAL IV SCH ×3 (08:46→17:27)
[2020-01-03] MEDS: DEXAMETHASONE SOD PHOSPHATE 10 MG/ML VIAL IV SCH (08:46)
[2020-01-03 08:51] LABS: ABG BASE EXCESS 3.4 mmol/L; ABG OXYGEN SATURATION 98.6 % (92.0-98.5); ABG PCO2 40.6 mmHg (35.0-45.0); ABG PO2 143.7 mmHg (75.0-100.0); AaDO2 203.3 mmHg; COHb 0.1 % (0.5-1.5); MetHb 0.1 % (0.0-1.5); O2Hb 98.4 % (94.0-97.0); PEEP,BG 15 cm H2O; SITE, ABG Right Radial; VT, ABG 500 mL
[2020-01-03] MEDS: GLUCERNA 1.2 1,000 ML BOTTLE GT PRN (08:52)
[2020-01-03] MEDS: NOREPINEPHRINE 8 MG in IV NS 0.9% 242 ML IV PRN (10:14)
--- NOTE | 2020-01-03 11:20 | NUR ---
RN NOTES SEEN AND EXAMINED BY DR VÁSQUEZ. AWARE OF LAB, ABG AND CXR RESULT. VENT SETTING CHANGE ORDERED. WILL CLOSELY MONITOR
--- NOTE | 2020-01-03 11:25 | NUR ---
RT ABG RESULTS SHOWN TO DR VÁSQUEZ, PER MD, DECREASE PEEP TO +12. CHANGES MADE AND RN AWARE. WILL CONTINUE TO MONITOR.
--- NOTE | 2020-01-03 18:28 | NUR ---
RN CLOSING NOTES PT REMAINS INTUBATED, OV VENT. PEEP DOWN TO +12. NO RESPIRATORY DISTRESS NOTED. KEPT HOB ELEVATED. NO SIGNS OF PAIN NOTED. TOLERATING TUBE FEEDING WELL. TX PROVIDED ORDERED. KEPT CLEAN AND DRY. REPOSITIONED WHEN ABLE DUE TO ISOLATION. COVID SWAB SENT TO LABS. KEPT COMFORTABLE. WILL ENDORSE FOR CONTINUITY OF CARE
--- NOTE | 2020-01-03 19:30 | NUR ---
LICENSING WORKER OPENING NOTE RECEIVED PT IN SEMI-FOWLERS POSITION AND INTUBATED. PT TOLERATING CURRENT VENT SETTINGS NO RESPIRATORY DISTRESS NOTED. OGT IN PLACE AND PATENT, ON TUBE FEEDING GLUCERNA 1.2 AT 30 ML/HR, DIPRIVAN AT 25 MCG/KG/MIN AND LEVO AT 0.1 MCG/KG/MIN INFUSING. AKIKO PICC PATENT INTACT AND FLUSHING WELL. GORDON CATH DRAINING YELLOW URINE. SAFETY MEASURES IN PLACE WILL CONTINUE TO MONITOR PT.
--- NOTE | 2020-01-03 19:57 | NUR ---
RT NOTE PT RECEIVED INTUBATED 7.5 ET TUBE @ 23 CM ON RIGHT LIP LINE. MOVED ET TUBE TO MID LIP LINE. SX DONE, ET TUBE SECURED AND PATENT. ALARMS ON AND AUDIBLE. VENT PLUGGED TO RED OUTLET. NO DISTRESS NOTED AT THIS TIME. WILL CONTINUE TO MONITOR T/O SHIFT. Addendum: 01/03/20 at 1999 by FLAVIA LEWIS RT Amended: Links added.
[2020-01-04] VITALS (93 sets, daily range): BP systolic 60–153; BP diastolic 34–88
[2020-01-04] MEDS: BLOOD SUGAR DIAGNOSTIC 1 EACH STRIP IN SCH ×4 (00:05→17:57)
--- NOTE | 2020-01-04 01:05 | NUR ---
RT NOTE TITRATED FIO2 TO 50%. RN YOSEF AWARE. NO DISTRESS NOTED AT THIS TIME. WILL CONTINUE TO MONITOR CLOSELY.
[2020-01-04] MEDS: NOREPINEPHRINE 8 MG in IV NS 0.9% 242 ML IV PRN (01:32)
[2020-01-04] MEDS: PROPOFOL 100 ML IV PRN ×3 (01:34→16:43)
[2020-01-04] MEDS ORDERED: MEROPENEM 500 MG VIAL IV ONE (05:04)
[2020-01-04] MEDS: MEROPENEM 500 MG in IV NS 0.9% 100 ML IV SCH ×3 (05:14→21:00)
[2020-01-04 05:23] LABS: CALCIUM, SERUM 8.1 mg/dL (8.5-10.1); CREATININE 0.7 mg/dL (0.6-1.3); POTASSIUM 3.4 mmol/L (3.5-5.1)
[2020-01-04] MEDS: INSULIN REGULAR, HUMAN 100 UNIT/ML 3 ML VIAL SQ PRN ×3 (06:02→18:02)
--- NOTE | 2020-01-04 06:52 | NUR ---
SHOE DESIGNER CLOSING NOTE PT REMAINED STABLE THROUGHOUT SHIFT. PT TOLERATING CURRENT VENT SETTINGS NO RESPIRATORY DISTRESS NOTED. OGT IN PLACE AND PATENT, ON TUBE FEEDING GLUCERNA 1.2 AT 30 ML/HR, DIPRIVAN AT 25 MCG/KG/MIN AND LEVO AT 0.1 MCG/KG/MIN INFUSING. AKIKO PICC PATENT INTACT AND FLUSHING WELL. BILATERAL WRIST RESTRAINTS IN PLACE. PT CLEANED AND DRESSING CHANGED PER PROTOCOL GORDON CATH DRAINING YELLOW URINE. BED IN LOCKED IN LOWEST POSITION. ENDORSED TO AM RN FOR KEN.
[2020-01-04] MEDS: HYDROCORTISONE SOD SUCCINATE 100 MG/2 ML VIAL IV SCH ×3 (08:21→17:49)
[2020-01-04] MEDS: METFORMIN 500 MG TABLET PO SCH ×2 (08:21→17:49)
[2020-01-04] MEDS: DEXAMETHASONE SOD PHOSPHATE 10 MG/ML VIAL IV SCH (08:21)
[2020-01-04 08:27] LABS: ABG BASE EXCESS 5.6 mmol/L; ABG PCO2 39.9 mmHg (35.0-45.0); ABG PH 7.486 (7.350-7.450); ABG PO2 90.3 mmHg (75.0-100.0); AaDO2 221.3 mmHg; COHb 0.4 % (0.5-1.5); MetHb 0.3 % (0.0-1.5); O2Hb 96.3 % (94.0-97.0); SITE, ABG Right Radial
--- NOTE | 2020-01-04 10:38 | NUR ---
RN NOTE 0715: Received patient with ETT to vent, tolerated settings at this time. AC 22 500 50% +12. On sedation of Diprivan @ 25mcg, noted with opening eyes, patient is calm, VSS with Levo @ 0.1mcg, will titrate as ordered. SR 90's on the monitor. Ritchie cath intact, noted with liz colored with sediments urine. OGT intact, TF tolerated. Kept HOB elevated. With TIE PULLER restraints for safety. Noted with both hands edema. AKIKO PICC intact, Diprivan and Levo infusing and titrated. On isolation prec for Covid, maintained and observed. Covid retest awaiting result. 0845: S/E by Dr. Alejandre, ABG resulted, with order to change PEEP to 8. 1030: Tolerated new vent setting. Will continue to monitor. Turned and repositioned q2.
[2020-01-04] MEDS ORDERED: POTASSIUM CHLORIDE 20 MEQ POWDER PACKET NG ONE (13:30)
[2020-01-04] MEDS: VANCOMYCIN 1 GM in IV D5W 250 ML IV SCH (14:25)
--- NOTE | 2020-01-04 18:36 | NUR ---
RN NOTE No any significant changes noted. Remained on Levo @ 0.02mcg. Diprivan @ 30mcg. Kept clean, warm and dry. Needs attended. Vent settings tolerated.
--- NOTE | 2020-01-04 20:39 | NUR ---
FRICKERTRON CHECKER OPENING NOTE RECEIVED PT IN SEMI-FOWLERS POSITION AND INTUBATED. PT TOLERATING CURRENT VENT SETTINGS, PT IN NO RESPIRATORY DISTRESS. OGT IN PLACE AND PATENT,ON TUBE FEEDING GLUCERNA 1.2 AT 30 ML/HR, DIPRIVAN AT 30 MCG/KG/MIN AND LEVO AT 0.02 MCG/KG/MIN INFUSING. AKIKO PICC PATENT INTACT AND FLUSHING WELL. PT ON BILATERAL WRIST RESTRAINTS FOR SAFETY, EDEMA NOTED TO BILATERAL HANDS. GORDON CATH DRAINING YELLOW URINE. SAFETY MEASURES IN PLACE, SIDE RAILS UP X 2 WILL CONTINUE TO MONITOR PT.
--- NOTE | 2020-01-04 20:41 | NUR ---
RT NOTE PT RECEIVED INTUBATED ON 7.5 ET TUBE @ 23 CM. MOVED ET TUBE TO RIGHT LIP LINE. SX DONE, ET TUBE SECURED AND PATENT. VENT PLUGGED TO RED OUTLET. ALARMS ON AND AUDIBLE. VENT PLUGGED TO RED OUTLET. NO DISTRESS NOTED AT THIS TIME. PT TOLERATING PEEP +8. Addendum: 01/04/20 at 2042 by FLAVIA LEWIS RT Amended: Links added.
[2020-01-04] MEDS: GLUCERNA 1.2 1,000 ML BOTTLE GT PRN (23:30)
[2020-01-05] VITALS (96 sets, daily range): BP systolic 59–168; BP diastolic 33–97
[2020-01-05] MEDS: BLOOD SUGAR DIAGNOSTIC 1 EACH STRIP IN SCH ×4 (00:23→17:25)
[2020-01-05] MEDS: PROPOFOL 100 ML IV PRN ×4 (00:30→22:31)
[2020-01-05] MEDS: INSULIN REGULAR, HUMAN 100 UNIT/ML 3 ML VIAL SQ PRN ×4 (00:33→17:26)
[2020-01-05] MEDS: IV NS 0.9% 250 ML IV PRN (01:01)
--- NOTE | 2020-01-05 01:30 | NUR ---
RT NOTE TITRATED FIO2 TO 40%. PT TOLERATING WELL. RN YOSEF AWARE. WILL CONTINUE TO MONITOR CLOSELY.
[2020-01-05 04:52] LABS: CALCIUM, SERUM 7.3 mg/dL (8.5-10.1); CARBON DIOXIDE 29 mmol/L (21-32); CHLORIDE 107 mmol/L (98-107); CREATININE 0.4 mg/dL (0.6-1.3); GLUCOSE 160 mg/dL (74-106); SODIUM SERUM 142 mmol/L (136-145); UREA NITROGEN, BLOOD 26 mg/dL (7-18)
[2020-01-05] MEDS: MEROPENEM 500 MG in IV NS 0.9% 100 ML IV SCH ×3 (05:05→20:42)
--- NOTE | 2020-01-05 06:58 | NUR ---
PLEASURE CRAFT SAILOR CLOSING NOTE PT REMAINED STABLE THROUGHOUT SHIFT. PT TOLERATING CURRENT VENT SETTINGS NO RESPIRATORY DISTRESS NOTED. OGT IN PLACE AND PATENT, ON TUBE FEEDING GLUCERNA 1.2 AT 30 ML/HR, DIPRIVAN AT 30 MCG/KG/MIN AND LEVO AT 0.02 MCG/KG/MIN INFUSING. AKIKO PICC PATENT INTACT AND FLUSHING WELL. BILATERAL WRIST RESTRAINTS IN PLACE. PT CLEANED AND DRESSING CHANGED PER PROTOCOL GORDON CATH DRAINING YELLOW URINE. # 3 COVID SWAB IS POSITIVE. ENDORSED TO AM RN FOR KEN
[2020-01-05 07:47] LABS: ABG BASE EXCESS 6.3 mmol/L; ABG OXYGEN SATURATION 90.6 % (92.0-98.5); ABG PH 7.519 (7.350-7.450); ABG PO2 54.2 mmHg (75.0-100.0); AaDO2 188.5 mmHg; COHb 0.7 % (0.5-1.5); MetHb 0.3 % (0.0-1.5); O2Hb 89.7 % (94.0-97.0); SITE, ABG Right Radial; VENT MODE, BG AC 22 500 +8 40%
--- NOTE | 2020-01-05 07:47 | NUR ---
RN NOTE 0715: Received patient with ETT to vent, tolerated settings at this time. Noted with eyes opeinig, on Diprivan @ 30mcg, remained calm at this time. With OGT intact, TF tolerated, kept HOB elevated. With Ritchie cath intact, noted with liz colored urine with sediments. With COOK FAST FOOD restraints on for safety. ST 100's on the monitor. AKIKO PICC intact. On Levo @ 0.02mcg, will titrate as ordered. On isolation precaution for Covid, maintained and observed. 0730: S/E by Dr. Alejandre, aware for ABG result. With vent setting as ff: AC 22 500 40% +8, ordered to increse FIO2 to 50%., will monitor.
[2020-01-05] MEDS: HYDROCORTISONE SOD SUCCINATE 100 MG/2 ML VIAL IV SCH ×3 (08:12→17:08)
[2020-01-05] MEDS: METFORMIN 500 MG TABLET PO SCH ×2 (08:12→17:08)
[2020-01-05] MEDS: DEXAMETHASONE SOD PHOSPHATE 10 MG/ML VIAL IV SCH (08:12)
[2020-01-05] MEDS: VANCOMYCIN 1 GM in IV D5W 250 ML IV SCH (09:38)
[2020-01-05] MEDS: POTASSIUM CHLORIDE 20 MEQ POWDER PACKET GT SCH ×3 (10:38→11:57)
--- NOTE | 2020-01-05 19:05 | NUR ---
SACK SEWER MACHINE NOTE RECEIVED PATIENT IN BED WITH HOB ELEVATED. SEDATED, ON DIPRIVAN RUNNING AT 40 MCS/KG/MIN. EYES ARE OPEN. PATIENT IS VENT DEPENDANT, BREATHING IS EVEN AND NON-LABORED. NO SOB NOTED AT THIS TIME. ON ORAL GT FEEDING, RUNNING AT 30 MLS/HR. ON GORDON CATH, URINE IS CLEAR AND YELLOW IN COLOR. ON BILATERAL SOFT WRIST RESTRAINTS. NOTED EDEMA ON BILATERAL ARMS +4. PER AM SHIFT RN, PATIENT IS OFF OF LEVOPHED SINCE 0715 TODAY. AKIKO PICC IS CLEAN AND PATENT. IN NO APPARENT DISTRESS NOTED AT THIS TIME. WILL CONTINUE TO MONITOR.
--- NOTE | 2020-01-05 19:12 | NUR ---
RN NOTE Tolerated off Levo. Kept clean ,warm and dry. Needs attended. With episode of 150's HR at 1800, increased Diprivan to 40mcg. Addendum: 01/05/20 at 1912 by JOSE KWONG RN Now back to 100's HR
--- NOTE | 2020-01-05 20:13 | NUR ---
RT NOTE PT RECEIVED INTUBATED ON 7.5 ET TUBE @ 23 CM. MOVED ET TUBE TO LEFT LIP LINE. AMBU BAG @ HOB. SX DONE, ET TUBE SECURED VIA ANCHOR FAST AND PATENT. ALARMS ON AND AUDIBLE. VENT PLUGGED TO RED OUTLET. NO DISTRESS NOTED AT THIS TIME. WILL CONTINUE TO MONITOR T/O SHIFT. Addendum: 01/05/20 at 2014 by FLAVIA LEWIS RT Amended: Links added.
--- NOTE | 2020-01-05 22:05 | NUR ---
ART CONSERVATOR NOTE RESTARTED PATIENT ON LEVOPHED DRIP, BP IS 65/35 AT THIS TIME.
--- NOTE | 2020-01-05 22:10 | NUR ---
ICU/JAVASCRIPT WEB DEVELOPER PT WAS PROVIDED ORAL CARE AT THIS TIME, THEN PT GIVEN PM CARE. PT TOLERATED THIS WELL, REMAINS ON CURRENT VENT WITH SATURATION AT 99%. PT WAS TURNED AND REPOSITIONED FOR COMFORT AND CARE. WILL CONTINUE TO MONITOR THIS PT Addendum: 01/06/20 at 0455 by JULIO WATKINS LVN WRONG PT
[2020-01-05] MEDS: NOREPINEPHRINE 8 MG in IV NS 0.9% 242 ML IV PRN (22:23)
[2020-01-06] VITALS (94 sets, daily range): BP systolic 78–152; BP diastolic 44–84
[2020-01-06] MEDS: BLOOD SUGAR DIAGNOSTIC 1 EACH STRIP IN SCH ×5 (00:17→23:44)
[2020-01-06] MEDS: INSULIN REGULAR, HUMAN 100 UNIT/ML 3 ML VIAL SQ PRN ×6 (00:18→23:45)
[2020-01-06] MEDS: VANCOMYCIN 1 GM in IV D5W 250 ML IV SCH (03:01)
[2020-01-06] MEDS: PROPOFOL 100 ML IV PRN ×4 (04:05→21:13)
[2020-01-06] MEDS: MEROPENEM 500 MG in IV NS 0.9% 100 ML IV SCH (05:04)
[2020-01-06 05:21] LABS: CALCIUM, SERUM 7.7 mg/dL (8.5-10.1); CREATININE 0.6 mg/dL (0.6-1.3); POTASSIUM 3.4 mmol/L (3.5-5.1)
--- NOTE | 2020-01-06 07:00 | NUR ---
RN NOTE RECEIVED PATIENT ON BED,INTUBATED AND SEDATED, ON DIPRIVAN RUNNING AT 35 MCG/KG/MIN. EYES ARE OPEN. PATIENT IS VENT DEPENDANT,TOLERATING CURRENT VENT SETTING WELL, O2 SAT WNL BREATHING IS EVEN AND NON-LABORED. NO DISTRESS NOTED, ON ORAL GT FEEDING, RUNNING AT 30 MLS/HR. GORDON CATH DRAINING WITH YELLOW CLEAR URINE, ON BILATERAL SOFT WRIST RESTRAINTS FOR PT SAFETY, NOTED EDEMA ON BILATERAL ARMS +4. PER AM SHIFT RN, HOB ELEVATED, LEVO AT .01 MCG/KG/MIN FOR BP SUPPORT, R UA PICC LINE SITE CLEAN, DRY AND INTACT, SR UP x3, CALL LIGHT WITHIN EASY REACH, BED LOCKED AND IN LOWEST POSITION, WILL CONTINUE TO MONITOR .
--- NOTE | 2020-01-06 07:17 | NUR ---
TALENT ENGINEER NOTE PATIENT KEPT CLEAN, DRY, AND COMFORTABLE. REPOSITIONED Q2H. ALL WOUND CARE RENDERED. NO BM NOTED. ENDORSED TO AM SHIFT RN SAMIR FOR CONTINUATION OF CARE.
[2020-01-06] MEDS ORDERED: POTASSIUM CHLORIDE 20 MEQ POWDER PACKET NG SCH (07:30)
[2020-01-06 08:07] LABS: ABG BASE EXCESS 3.7 mmol/L; ABG PCO2 34.1 mmHg (35.0-45.0); ABG PO2 60.4 mmHg (75.0-100.0); AaDO2 257.7 mmHg; COHb 0.4 % (0.5-1.5); O2Hb 91.6 % (94.0-97.0); PEEP,BG 8 cm H2O; SITE, ABG Right Radial; VT, ABG 500 mL
[2020-01-06] MEDS: METFORMIN 500 MG TABLET PO SCH ×2 (08:40→16:43)
[2020-01-06] MEDS: DEXAMETHASONE SOD PHOSPHATE 10 MG/ML VIAL IV SCH (08:40)
[2020-01-06] MEDS: HYDROCORTISONE SOD SUCCINATE 100 MG/2 ML VIAL IV SCH ×3 (08:40→16:43)
--- NOTE | 2020-01-06 12:00 | NUR ---
RN NOTES VSS STABLE, TOLERATING OGT WELL, CONTINUE TO MONITOR .
[2020-01-06] MEDS: GLUCERNA 1.2 1,000 ML BOTTLE GT PRN (17:34)
--- NOTE | 2020-01-06 18:00 | NUR ---
RN NOTE NO SIGNFICANT CHANGES NOTED ON THIS SHIFT, PT IS ON DIPRIVAN AT 35MCG/KG/MIN AND LEVO AT .02 MCG/KG/MIN , BP STABLE, O2 SAT WNL, SR UP x3, CALL LIGHT WITHIN EASY REACH, BED LOCKED AND IN LOWEST POSITION, PATIENT KEPT CLEAN, DRY, AND COMFORTABLE. ALL WOUND CARE RENDERED. WILL ENDORSE TO GLOBAL CHIEF CREATIVE OFFICER NURSE FOR CONTINUATION OF CARE.
--- NOTE | 2020-01-06 19:05 | NUR ---
SHIP UNLOADER NOTE RECEIVED PATIENT IN BED WITH HOB ELEVATED. SEDATED, ON DIPRIVAN RUNNING AT 35 MCS/KG/MIN. ABLE TO MOVE TO LOCALIZED PAIN. PATIENT IS VENT DEPENDANT, BREATHING IS EVEN AND NON-LABORED. NO SOB NOTED AT THIS TIME. ON ORAL GT FEEDING, RUNNING AT 30 MLS/HR. ON GORDON CATH, URINE IS CLEAR AND YELLOW IN COLOR WITH MINIMAL SEDIMENTS NOTED. ON BILATERAL SOFT WRIST RESTRAINTS. NOTED EDEMA ON BILATERAL ARMS +4. ON LEVOPHED RUNNING AT 0.01 MCG/KG/MIN. VITALS ARE WNL AT THIS TIME. [facility] PICC IS CLEAN AND PATENT. IN NO APPARENT DISTRESS NOTED AT THIS TIME. WILL CONTINUE TO MONITOR.
[2020-01-07] VITALS (95 sets, daily range): BP systolic 62–156; BP diastolic 38–94
--- NOTE | 2020-01-07 01:30 | NUR ---
BIOFUELS TECHNOLOGY MANAGER NOTE LEVOPHED INCREASED TO 0.03 MCS/KG/MIN. BP DROPPED TO 62/38. WILL CONTINUE TO MONITOR.
--- NOTE | 2020-01-07 03:00 | NUR ---
CHECK SERVICES CLERK NOTE PATIENT TOLERATED BED BATH WELL. ALL WOUND CARE RENDERED. NOTED MEDIUM SIZE BM. GORDON CATHETER CHANGED AND TOLERATED WELL.
[2020-01-07] MEDS: PROPOFOL 100 ML IV PRN ×5 (03:20→23:04)
[2020-01-07] MEDS: BLOOD SUGAR DIAGNOSTIC 1 EACH STRIP IN SCH ×3 (05:45→17:12)
--- NOTE | 2020-01-07 06:57 | NUR ---
LEAK DETECTOR NOTE PATIENT IS RESTING COMFORTABLY AT THIS TIME. ALL WOUND CARE RENDERED. REPOSITIONED Q2H. ALL DUE MEDS GIVEN AND TOLERATED WELL. TITRATED LEVOPHED ORDERED. PATIENT IS IN NO APPARENT DISTRESS AT THIS TIME. WILL ENDORSE TO AM SHIFT RN FOR CONTINUATION OF CARE.
--- NOTE | 2020-01-07 08:05 | NUR ---
RT PATIENT REC'D ORALLY INTUBATED ON MECH VENT. PEEP TITRATED POST MORNING ABGS. PEEP LOWERED TO 8 KASHIF WELL. Addendum: 01/07/20 at 912 by BASSAM PEREIRA RT Amended: Links added. Addendum: 01/07/20 at 14 by BASSAM PEREIRA RT PEEP LOWERED TO 5 KASHIF WELL
[2020-01-07] MEDS: METFORMIN 500 MG TABLET PO SCH ×2 (08:23→17:12)
[2020-01-07] MEDS ORDERED: IV NS 0.9% 500 ML IV ONE (09:00)
[2020-01-07] MEDS: NOREPINEPHRINE 8 MG in IV NS 0.9% 242 ML IV PRN (10:53)
[2020-01-07 10:57] LABS: BASOPHILS % (AUTO) 0.2 % (0.0-2.0); EOSINOPHILS % (AUTO) 3.6 % (0.0-6.0); HEMATOCRIT 34 % (39-51); HEMOGLOBIN 11.1 g/dL (13.5-17.5); LYMPHOCYTES # (AUTO) 1.1 /CMM (0.8-4.8); LYMPHOCYTES % (AUTO) 9.3 % (20.0-44.0); MEAN CORPUSCULAR HGB CONC 33 g/dl (31.0-36.0); MEAN CORPUSCULAR VOLUME 92 fL (80-96); MONOCYTES # (AUTO) 0.5 /CMM (0.1-1.30); MONOCYTES % (AUTO) 4.1 % (2.0-12.0); NEUTROPHILS # (AUTO) 10.1 /CMM (1.8-8.9); NEUTROPHILS % (AUTO) 82.8 % (43.0-81.0); PLATELET COUNT (AUTO) 285 /CMM (150-450); RED BLOOD CELL COUNT(AUTO) 3.74 MIL/uL (4.5-6.0); WHITE BLOOD COUNT (AUTO) 12.3 K/uL (4.3-11.0)
[2020-01-07 10:58] LABS: ALANINE AMINOTRANSFERASE 30 U/L (12-78); ALBUMIN 1.7 g/dL (3.4-5.0); ALKALINE PHOSPHATASE 106 U/L (46-116); ASPARTATE AMINOTRANSFERASE 24 U/L (15-37); BILIRUBIN,TOTAL 0.5 mg/dL (0.2-1.0); CALCIUM, SERUM 7.9 mg/dL (8.5-10.1); CARBON DIOXIDE 33 mmol/L (21-32); CHLORIDE 104 mmol/L (98-107); CREATININE 0.4 mg/dL (0.6-1.3); GLUCOSE 99 mg/dL (74-106); MAGNESIUM 1.7 mg/dL (1.8-2.4); PHOSPHORUS 2.2 mg/dL (2.5-4.9); POTASSIUM 2.9 mmol/L (3.5-5.1); SODIUM SERUM 142 mmol/L (136-145); TOTAL PROTEIN, SERUM 5.3 g/dL (6.4-8.2); UREA NITROGEN, BLOOD 25 mg/dL (7-18)
[2020-01-07] MEDS: HYDROCORTISONE SOD SUCCINATE 100 MG/2 ML VIAL IV SCH ×3 (11:43→17:12)
[2020-01-07] MEDS: ENOXAPARIN SODIUM 40 MG/0.4 ML DISP.SYRIN SQ SCH (11:45)
[2020-01-07] MEDS ORDERED: NEUTRA PHOS 1 POWD.PACKET GT ONE (12:00)
--- NOTE | 2020-01-07 13:00 | NUR ---
nonadmin solucortef 1300 EMAR orders showed two different steroids, awaited MD arrival for clarification of which one to admin. 1st dose too close to 2nd, therefore - held
[2020-01-07 15:55] LABS: ABG BASE EXCESS 2.9 mmol/L; ABG OXYGEN SATURATION 97.6 % (92.0-98.5); ABG PCO2 32.7 mmHg (35.0-45.0); ABG PH 7.511 (7.350-7.450); ABG PO2 99.3 mmHg (75.0-100.0); AaDO2 220.4 mmHg; COHb 0.5 % (0.5-1.5); MetHb 0.3 % (0.0-1.5); O2Hb 96.8 % (94.0-97.0); SITE, ABG Right Radial
[2020-01-07] MEDS: INSULIN REGULAR, HUMAN 100 UNIT/ML 3 ML VIAL SQ PRN (18:00)
--- NOTE | 2020-01-07 20:21 | NUR ---
CLINICAL MICROBIOLOGIST NOTES, ULTRASOUND DONE FOR RIGHT UPPER EXTREMITY AND CALL FROM RADIOLOGY YASSINE ARMAS RECEIVED CONFIRMING POSITIVE DEEP VEIN THROMBOSIS IN RIGHT AXILLARY VEIN ASSOCIATED WITH PICC LINE IN PLACED, INFORM ALOK KWONG AND PER HIM LEAVE IT IS, DO NOT REMOVE, AND NO FURTHER ORDER RECEIVED.
[2020-01-08] VITALS (93 sets, daily range): BP systolic 63–152; BP diastolic 43–90
[2020-01-08] MEDS: BLOOD SUGAR DIAGNOSTIC 1 EACH STRIP IN SCH ×5 (00:48→23:21)
[2020-01-08] MEDS: INSULIN REGULAR, HUMAN 100 UNIT/ML 3 ML VIAL SQ PRN ×4 (00:50→23:23)
[2020-01-08] MEDS: PROPOFOL 100 ML IV PRN ×5 (03:09→20:35)
[2020-01-08 05:09] LABS: EOSINOPHILS % (AUTO) 1.4 % (0.0-6.0); HEMATOCRIT 33 % (39-51); HEMOGLOBIN 10.7 g/dL (13.5-17.5); LYMPHOCYTES # (AUTO) 1.2 /CMM (0.8-4.8); MEAN CORPUSCULAR HGB CONC 32 g/dl (31.0-36.0); MEAN CORPUSCULAR VOLUME 93 fL (80-96); MONOCYTES # (AUTO) 0.6 /CMM (0.1-1.30); MONOCYTES % (AUTO) 4.3 % (2.0-12.0); NEUTROPHILS # (AUTO) 11.1 /CMM (1.8-8.9); NEUTROPHILS % (AUTO) 85.3 % (43.0-81.0); PLATELET COUNT (AUTO) 304 /CMM (150-450); RED BLOOD CELL COUNT(AUTO) 3.58 MIL/uL (4.5-6.0); WHITE BLOOD COUNT (AUTO) 13.1 K/uL (4.3-11.0)
[2020-01-08 05:39] LABS: ALANINE AMINOTRANSFERASE 27 U/L (12-78); ALBUMIN 1.6 g/dL (3.4-5.0); ALKALINE PHOSPHATASE 103 U/L (46-116); ASPARTATE AMINOTRANSFERASE 25 U/L (15-37); BILIRUBIN,TOTAL 0.4 mg/dL (0.2-1.0); CALCIUM, SERUM 7.4 mg/dL (8.5-10.1); CARBON DIOXIDE 32 mmol/L (21-32); CHLORIDE 105 mmol/L (98-107); CREATININE 0.5 mg/dL (0.6-1.3); GLUCOSE 136 mg/dL (74-106); MAGNESIUM 1.7 mg/dL (1.8-2.4); PHOSPHORUS 2.6 mg/dL (2.5-4.9); SODIUM SERUM 143 mmol/L (136-145); TOTAL PROTEIN, SERUM 5.3 g/dL (6.4-8.2); UREA NITROGEN, BLOOD 26 mg/dL (7-18)
[2020-01-08] MEDS: HYDROCODONE/APAP 5/325MG 1 EACH TABLET PO PRN (05:58)
[2020-01-08] MEDS: GLUCERNA 1.2 1,000 ML BOTTLE GT PRN (05:58)
[2020-01-08 06:19] LABS: POTASSIUM 2.8 mmol/L (3.5-5.1)
--- NOTE | 2020-01-08 06:42 | NUR ---
MECHANICAL OXIDIZER NOTES, PATIENT IS RESTING COMFORTABLY AT THIS TIME, INTUBATED ATTACH TO MECHANICAL VENTILATOR, TOLERATED WELL, SEDATED CONT ON DIPRIVAN ORDERED, WELL NOREPINEPHRINE TO MAINTAIN BLOOD PRESSURE, NO CHANGE IN RATE LAST NIGHT, ALL NEEDS PROVIDED, REPOSITIONED Q2H, NOTED WITH HR IN 120S-130S AT HIS TIME, NORCO ADMINISTERED, WILL ENDORSE CONTINUATION OF CARE TO ONCOMING NURSE..
--- NOTE | 2020-01-08 07:00 | NUR ---
RN NOTE RECEIVED PATIENT ON BED,INTUBATED AND SEDATED, ON DIPRIVAN RUNNING AT 55 MCG/KG/MIN. PATIENT IS VENT DEPENDANT,TOLERATING CURRENT VENT SETTING WELL, O2 SAT WNL BREATHING IS EVEN AND NON-LABORED. NO DISTRESS NOTED, ON ORAL GT FEEDING, RUNNING AT 30 MLS/HR. GORDON CATH DRAINING WITH YELLOW URINE, HOB ELEVATED, LEVO AT .04 MCG/KG/MIN FOR BP SUPPORT, R UA PICC LINE SITE CLEAN, DRY AND INTACT, SR UP x3, CALL LIGHT WITHIN EASY REACH, BED LOCKED AND IN LOWEST POSITION, WILL CONTINUE TO MONITOR .
--- NOTE | 2020-01-08 07:58 | NUR ---
WOUND CARE FOLLOW UP: PT REMAINS ON VENTILATOR, ON PRESSORS WITH MULTIPLE CO-MORBIDITIES INCLUDING DIABETES, NSTEMI, COVID 19 INFECTION. REVIEWED CHART, NURSING DOCUMENTATION AND PHOTOS WHICH SHOW SACRAL DEEP TISSUE INJURY IN EVOLUTION. PT IS FOLLOWED BY SURGICAL TEAM FOR WOUND CARE. DISCUSSED SKIN PROTECTION AND CURRENT WOUND CARE RECOMMENDATIONS WITH NURSING STAFF. PT IS ON FIRST STEP [facility] AIRLOSS MATTRESS. IN AGREEMENT WITH PLAN OF CARE.
[2020-01-08] MEDS: POTASSIUM CHLORIDE 20 MEQ POWDER PACKET GT SCH ×3 (08:09→09:54)
[2020-01-08] MEDS: METFORMIN 500 MG TABLET PO SCH ×2 (08:10→16:44)
[2020-01-08] MEDS: ENOXAPARIN SODIUM 40 MG/0.4 ML DISP.SYRIN SQ SCH (08:11)
[2020-01-08] MEDS: HYDROCORTISONE SOD SUCCINATE 100 MG/2 ML VIAL IV SCH ×3 (08:12→16:44)
[2020-01-08] MEDS: ACETAMINOPHEN 325 MG TABLET PO PRN ×2 (08:19→23:34)
[2020-01-08 08:38] LABS: ABG BASE EXCESS 3.9 mmol/L; ABG OXYGEN SATURATION 89.6 % (92.0-98.5); ABG PCO2 30.7 mmHg (35.0-45.0); ABG PH 7.543 (7.350-7.450); ABG PO2 53.3 mmHg (75.0-100.0); AaDO2 268.7 mmHg; COHb 1.2 % (0.5-1.5); MetHb 0.3 % (0.0-1.5); O2Hb 88.3 % (94.0-97.0); SITE, ABG Right Radial; VENT MODE, BG AC 22 500 50% +5
--- NOTE | 2020-01-08 09:30 | NUR ---
RN NOTES DR JESSIE KLINE REGARDING EKG .
--- NOTE | 2020-01-08 09:30 | NUR ---
RN NOTES HR IN 140'S, LOW BLOOD PRESSURE , DR JESSIE KLINE, ORDER RECEIVED TO CHANGES LEVO GTT TO YUN GTT , CONTINU TO MONITOR AND FOLLOW MD ORDER ,
[2020-01-08] MEDS: POTASSIUM CL. PREMIX PERIPHER. 50 ML IV SCH ×6 (09:43→16:40)
[2020-01-08] MEDS ORDERED: Magnesium 1GM/D5W 100ML PREMIX PIGGYBACK IV ONE (10:15)
[2020-01-08] MEDS: PHENYLEPHRINE 50 MG in IV NS 0.9% 245 ML IV PRN ×2 (10:33→22:34)
--- NOTE | 2020-01-08 12:00 | NUR ---
RN NOTES PT STABLE, ET TUBE SUCTIONING, CONTINUE TO MONITOR ,
--- NOTE | 2020-01-08 14:00 | NUR ---
RN NOTES VSS STABLE, NO DISTRESS NOTED , CONTINUE TO MONITOR .
--- NOTE | 2020-01-08 18:00 | NUR ---
RN NOTES PT REMAINS INTUBATED AND SEDATED, ON DIPRIVAN AT 45MCG/KG/MIN , YUN AT 0.5MCG/KG/MIN RUNNING FOR BP SUPPORT, HR IN LOW 100'S, TF AT 30CC/HR RUNNING , NO RESIDUAL NOTED, EVAN DRINING TO GRAVITY, R UPPER ARM PICC LINE SITE CLEAN, DRY AND INTACT, SR UP x3, CALL LIGHT WITHIN EASY REACH, BED LOCKED AND IN LOWEST POSITION, WILL ENDORSE TO FAN BLADE ALIGNER NURSE FOR CONTINUITY OF CARE .
--- NOTE | 2020-01-08 19:05 | NUR ---
CONCRETE PUMP OPERATOR HELPER NOTE RECEIVED PATIENT IN BED WITH HOB ELEVATED. SEDATED, ON DIPRIVAN RUNNING AT 45 MCS/KG/MIN. ABLE TO MOVE TO LOCALIZED PAIN. PATIENT IS VENT DEPENDANT, BREATHING IS EVEN AND NON-LABORED. NO SOB NOTED AT THIS TIME. ON ORAL GT FEEDING GLUCERNNA 1.2 RUNNING AT 30 MLS/HR. ON GORDON CATH, URINE IS CLEAR AND YELLOW IN COLOR WITH SOME SEDIMENTS NOTED. ON BILATERAL SOFT WRIST RESTRAINTS. NOTED EDEMA ON BILATERAL ARMS +4. ON NEOSYNEPHRINE RUNNING AT 0.5 MCG/KG/MIN. VITALS ARE WNL AT THIS TIME. [facility] PICC IS CLEAN AND PATENT. IN NO APPARENT DISTRESS NOTED AT THIS TIME. WILL CONTINUE TO MONITOR.
--- NOTE | 2020-01-08 23:45 | NUR ---
VACCINE CUSTOMER REPRESENTATIVE NOTE PATIENT NOTED WITH BM AROUND THIS TIME. PATIENT CLEANED AND KEPT COMFORTABLE. URINE NOTED TO BE CLOUDY, YELLOW/GREEN IN COLOR. IN NO APPARENT DISTRESS NOTED AT THIS TIME.
[2020-01-09] VITALS (97 sets, daily range): BP systolic 69–147; BP diastolic 39–93
[2020-01-09] MEDS: PROPOFOL 100 ML IV PRN ×4 (03:21→19:40)
[2020-01-09] MEDS: BLOOD SUGAR DIAGNOSTIC 1 EACH STRIP IN SCH ×4 (05:51→23:35)
--- NOTE | 2020-01-09 06:54 | NUR ---
MAINTENANCE TECHNICIAN 2ND SHIFT NOTE PATIENT REMAINED STABLE THROUGHOUT THE NIGHT. NO SIGNIFICANT CHANGES NOTED. KEPT DRY, CLEAN, AND COMFORTABLE. REPOSITIONED Q2H. ALL WOUND CARE RENDERED. WILL ENDORSE TO AM SHIFT RN FOR CONTINUATION OF CARE.
--- NOTE | 2020-01-09 07:00 | NUR ---
RN NOTE RECEIVED PATIENT ON BED INTUBATED, SEDATED, TOLERATING CURRENT VENT SETTING WELL, DIPRIVAN RUNNING AT 35 MCG/KG/MIN. YUN AT .5MCG/KG/MIN FOR BP SUPPORT, ABLE TO MOVE TO LOCALIZED PAIN. PATIENT IS VENT DEPENDANT, BREATHING IS EVEN AND NON-LABORED. ON NGT FEEDING GLUCERNA 1.2 RUNNING AT 30 MLS/HR. GORDON CATH DRAINING TEA COLOR URINE, WITH SOME SEDIMENTS, NOTED EDEMA ON BILATERAL ARMS +4. R UA PICC IS CLEAN AND PATENT. IN NO APPARENT DISTRESS NOTED AT THIS TIME. WILL CONTINUE TO MONITOR.
[2020-01-09 08:10] LABS: CALCIUM, SERUM 7.6 mg/dL (8.5-10.1); CARBON DIOXIDE 31 mmol/L (21-32); CHLORIDE 105 mmol/L (98-107); CREATININE 0.4 mg/dL (0.6-1.3); GLUCOSE 111 mg/dL (74-106); POTASSIUM 3.2 mmol/L (3.5-5.1); SODIUM SERUM 141 mmol/L (136-145); UREA NITROGEN, BLOOD 21 mg/dL (7-18)
[2020-01-09 08:14] LABS: MAGNESIUM 1.9 mg/dL (1.8-2.4); PHOSPHORUS 2.2 mg/dL (2.5-4.9)
[2020-01-09] MEDS: METFORMIN 500 MG TABLET PO SCH ×2 (08:16→16:08)
[2020-01-09] MEDS: HYDROCORTISONE SOD SUCCINATE 100 MG/2 ML VIAL IV SCH ×3 (08:16→16:08)
[2020-01-09] MEDS: ENOXAPARIN SODIUM 40 MG/0.4 ML DISP.SYRIN SQ SCH (08:18)
[2020-01-09 08:23] LABS: BASOPHILS # (AUTO) 0.1 /CMM (0.0-0.2); BASOPHILS % (AUTO) 0.5 % (0.0-2.0); EOSINOPHILS % (AUTO) 2.6 % (0.0-6.0); HEMATOCRIT 33 % (39-51); HEMOGLOBIN 10.6 g/dL (13.5-17.5); LYMPHOCYTES # (AUTO) 1.3 /CMM (0.8-4.8); MEAN CORPUSCULAR HGB CONC 32 g/dl (31.0-36.0); MEAN CORPUSCULAR VOLUME 92 fL (80-96); MONOCYTES # (AUTO) 0.5 /CMM (0.1-1.30); MONOCYTES % (AUTO) 3.6 % (2.0-12.0); NEUTROPHILS # (AUTO) 11.8 /CMM (1.8-8.9); NEUTROPHILS % (AUTO) 84.3 % (43.0-81.0); PLATELET COUNT (AUTO) 309 /CMM (150-450); RED BLOOD CELL COUNT(AUTO) 3.55 MIL/uL (4.5-6.0)
[2020-01-09 08:45] LABS: ABG OXYGEN SATURATION 96.3 % (92.0-98.5); ABG PCO2 32.1 mmHg (35.0-45.0); ABG PH 7.518 (7.350-7.450); ABG PO2 80.5 mmHg (75.0-100.0); AaDO2 239.9 mmHg; COHb 0.6 % (0.5-1.5); MetHb 0.3 % (0.0-1.5); O2Hb 95.4 % (94.0-97.0); SITE, ABG Right Radial; VENT MODE, BG AC 22 500 50% +8
[2020-01-09] MEDS: POTASSIUM CHLORIDE 20 MEQ POWDER PACKET GT SCH ×2 (09:36→10:36)
[2020-01-09] MEDS: PHENYLEPHRINE 50 MG in IV NS 0.9% 245 ML IV PRN (10:42)
--- NOTE | 2020-01-09 12:00 | NUR ---
RN NOTES ET SUCTIONING DONE, CONTINUE TO MONITOR .
[2020-01-09] MEDS: GLUCERNA 1.2 1,000 ML BOTTLE GT PRN (15:54)
[2020-01-09] MEDS ORDERED: K PHOS NEUTRAL 250 MG TABLET GT ONE (16:00)
[2020-01-09] MEDS: INSULIN REGULAR, HUMAN 100 UNIT/ML 3 ML VIAL SQ PRN ×2 (18:06→23:35)
--- NOTE | 2020-01-09 18:31 | NUR ---
RN NOTES VSS STABLE, ET SUCTIONING DONE, TOLERATING VENT SETTING WELL, CONTINUE TO MONITOR.
--- NOTE | 2020-01-09 18:33 | NUR ---
RN NOTES PATIENT REMAINED STABLE THROUGHOUT THE DAY, ON YUN AT .5 MCG/KG/MIN , DIPRIVAN AT 40 MCG/KG/MIN RUNNING VIA R UPPER ARM PICC LINE, SITE CLEAN,DRY AND INTACT, NO SIGNIFICANT CHANGES NOTED ON THIS SHIFT, KEPT DRY, CLEAN, AND COMFORTABLE. REPOSITIONED Q2H. ALL WOUND CARE RENDERED. WILL ENDORSE TO [facility] SHIFT RN FOR CONTINUATION OF CARE.
--- NOTE | 2020-01-09 20:00 | NUR ---
RN NOTES RECEIVED PT ON ISOLATION PRECAUTION DUE TO COVID19 +, ORALLY INTUBATED WTIH ETT 7.5/ 23 CM AT LIP LINE. VENT SETTING AC 18 TV 500 FIO2 50% AND PEEP 8 TOLERATED WELL NO ACUTE RESPIRATORY DISTRESS. NOTED. PT SEDATED WITH DIPRIVAN, CALM AND COOPERATIVE. OPENS EYES AND TRACKING. ST ON TELE MONITOR. OGT INTACT PATENCY CHECKED WITH GURGLING SOUND HEARD CONTINUE WITH FEEDING OF GLUCERNA 1.2 @ 30 ML/HR HOB KEPT ELEVATED. IV SITE ON AKIKO PICC LINE WITH DIPRIVAN AND YUN TO SUPPORT BP WILL TITRATE ORDERED PROTOCOL. AFEBRILE. PALPABLE PULSES PRESENT. KEPT PT CLEAN AND DRY. WILL CONTINUE TO MONITOR.
[2020-01-10] VITALS (97 sets, daily range): BP systolic 59–149; BP diastolic 41–100
[2020-01-10] MEDS: HYDROCODONE/APAP 5/325MG 1 EACH TABLET PO PRN (00:47)
[2020-01-10] MEDS: PROPOFOL 100 ML IV PRN ×4 (02:05→22:00)
[2020-01-10] MEDS: PHENYLEPHRINE 50 MG in IV NS 0.9% 245 ML IV PRN ×2 (04:04→17:43)
[2020-01-10 04:27] LABS: BASOPHILS % (AUTO) 0.3 % (0.0-2.0); EOSINOPHILS % (AUTO) 0.5 % (0.0-6.0); HEMATOCRIT 32 % (39-51); HEMOGLOBIN 10.6 g/dL (13.5-17.5); LYMPHOCYTES # (AUTO) 0.9 /CMM (0.8-4.8); LYMPHOCYTES % (AUTO) 6.6 % (20.0-44.0); MEAN CORPUSCULAR HGB CONC 33 g/dl (31.0-36.0); MEAN CORPUSCULAR VOLUME 92 fL (80-96); MONOCYTES # (AUTO) 0.6 /CMM (0.1-1.30); MONOCYTES % (AUTO) 4.3 % (2.0-12.0); NEUTROPHILS % (AUTO) 88.3 % (43.0-81.0); PLATELET COUNT (AUTO) 311 /CMM (150-450); WHITE BLOOD COUNT (AUTO) 13.6 K/uL (4.3-11.0)
[2020-01-10 04:45] LABS: CALCIUM, SERUM 7.3 mg/dL (8.5-10.1); CARBON DIOXIDE 34 mmol/L (21-32); CHLORIDE 106 mmol/L (98-107); CREATININE 0.4 mg/dL (0.6-1.3); GLUCOSE 136 mg/dL (74-106); PHOSPHORUS 2.5 mg/dL (2.5-4.9); SODIUM SERUM 143 mmol/L (136-145); UREA NITROGEN, BLOOD 18 mg/dL (7-18)
[2020-01-10 04:55] LABS: POTASSIUM 2.6 mmol/L (3.5-5.1)
--- NOTE | 2020-01-10 05:30 | NUR ---
RN NOTES INFORMED DINORAH DNP REGARDING CRITICAL RESULT OF POTASSIUM 2.6 WITH NEW ORDER TO REPLACED POTASSIUM 60 MEQ IV BOLUS. NOTED AND CARRIED OUT ORDER.
[2020-01-10] MEDS: BLOOD SUGAR DIAGNOSTIC 1 EACH STRIP IN SCH ×3 (06:00→17:40)
[2020-01-10] MEDS: POTASSIUM CL. PREMIX PERIPHER. 50 ML IV SCH ×6 (07:03→14:08)
--- NOTE | 2020-01-10 07:10 | NUR ---
RN NOTES NO SIGNIFICANT CHANGES. ETT AND VENT SETTING REMAINED THE SAME. ISOLATION PRECAUTION FOR COVID 19 CONTINUE. CONTINUE ON DIPRIVAN AND YUN TITRATED ORDERED. F/C DRAINED VIA GRAVITY KEPT OFF FROM THE FLOOR. WILL CONTINUE POC
--- NOTE | 2020-01-10 07:15 | NUR ---
ICU/RN: YUN INCREASED PER PROTOCOL. BP 59/41
--- NOTE | 2020-01-10 08:00 | NUR ---
ICU/RN INITIAL NOTES,AM RECEIVED REPORT FROM NIGHT NURSE. PT INTUBATED AND SEDATED. ETT 7.5/23 CM AT THE LIP. PT ON VENT SETTINGS ORDERED BY MD, NO ACUTE DISTRESS NOTED. PT ON TELE, SINUS. GORDON CATH IN PLACE, DRAINING URINE. OG TUBE IN PLACE, FEEDING INFUSING, TOLERATING WELL. PIVS PATENT AND INTACT, NO S/S OF INFECTION OR INFILTRATION NOTED. DIPRIVAN INFUSING FOR SEDATION, WILL DO SEDATION VACATION. ALL NEEDS WILL BE ATTENDED TO, SAFETY MEASURES TAKEN, BED IN LOW POSITION, SIDE RIALS UP.
[2020-01-10] MEDS: HYDROCORTISONE SOD SUCCINATE 100 MG/2 ML VIAL IV SCH ×3 (08:20→17:40)
[2020-01-10] MEDS: METFORMIN 500 MG TABLET PO SCH ×2 (08:20→17:40)
[2020-01-10] MEDS: ENOXAPARIN SODIUM 40 MG/0.4 ML DISP.SYRIN SQ SCH (08:59)
--- NOTE | 2020-01-10 09:00 | NUR ---
SEDATION VACATION DONE. PT OPENS EYES, AGITATED, INCREASED RR. PER WE ARE TO INCREASE SEDATION PER PROTOCOL. PT FOLLOWS SIMPLE COMMANDS.
--- NOTE | 2020-01-10 12:45 | NUR ---
ICU/RN: BP 78/43, YUN INCREASED PER PROTOCOL. WILL CONTINUE TO MONITOR
[2020-01-10] MEDS: GLUCERNA 1.2 1,000 ML BOTTLE GT PRN (17:42)
[2020-01-10] MEDS: INSULIN REGULAR, HUMAN 100 UNIT/ML 3 ML VIAL SQ PRN (17:57)
--- NOTE | 2020-01-10 19:03 | NUR ---
ICU/RN ENDING NOTES,AM REPORT ENDORSED TO NIGHT NURSE. PT INTUBATED AND SEDATED, ON VENT SETTINGS ORDERED, NO ACUTE DISTRESS NOTED. SINUS TACH ON TELE. RIGHT UPPER ARM PICC LINE PATENT, DIPRIVAN AND YUN INFUSING PER PROTOCOL. ALL NEEDS ATTENDED TO, BED BATH GIVEN, LINENS CHANGED, TURNED AND REPOSITIONED. WILL CONTINUE CARE.
--- NOTE | 2020-01-10 19:30 | NUR ---
RN NOTES RECEIVED PATIENT IN BED INTUBATED SEDATED. VENT SETTING TOLERATING WELL ORDERED. NO S/S OF DISTRESS NOTED. TELE MONITOR SHOWS ST. OGT IN PLACE TOLERATING WELL. AKIKO PICC LINE INTACT, PATENT FLUSHES WELL. F/C INTACT YELLOW URINE RUNNING TO GRAVITY. ALL SAFETY MEASURES IN PLACE, CALL LIGHT WITHIN REACH. WILL CONT TO MONITOR FOR KEN.
[2020-01-11] VITALS (87 sets, daily range): BP systolic 76–189; BP diastolic 35–98
[2020-01-11] MEDS: INSULIN REGULAR, HUMAN 100 UNIT/ML 3 ML VIAL SQ PRN ×3 (00:57→18:00)
[2020-01-11] MEDS: BLOOD SUGAR DIAGNOSTIC 1 EACH STRIP IN SCH ×4 (00:58→17:59)
--- NOTE | 2020-01-11 04:00 | NUR ---
BED BATH GIVEN PATIENT TOLERATED WELL. WOUND CARE DONE.
[2020-01-11 05:07] LABS: ALANINE AMINOTRANSFERASE 24 U/L (12-78); ALBUMIN 1.7 g/dL (3.4-5.0); ALKALINE PHOSPHATASE 106 U/L (46-116); ASPARTATE AMINOTRANSFERASE 28 U/L (15-37); BILIRUBIN,TOTAL 0.5 mg/dL (0.2-1.0); CALCIUM, SERUM 7.7 mg/dL (8.5-10.1); CARBON DIOXIDE 34 mmol/L (21-32); CHLORIDE 106 mmol/L (98-107); CREATININE 0.3 mg/dL (0.6-1.3); GLUCOSE 125 mg/dL (74-106); MAGNESIUM 1.7 mg/dL (1.8-2.4); SODIUM SERUM 143 mmol/L (136-145); TOTAL PROTEIN, SERUM 5.6 g/dL (6.4-8.2); UREA NITROGEN, BLOOD 16 mg/dL (7-18)
[2020-01-11 05:22] LABS: BASOPHILS % (AUTO) 0.2 % (0.0-2.0); EOSINOPHILS % (AUTO) 0.3 % (0.0-6.0); HEMATOCRIT 31 % (39-51); HEMOGLOBIN 10.1 g/dL (13.5-17.5); LYMPHOCYTES # (AUTO) 0.7 /CMM (0.8-4.8); LYMPHOCYTES % (AUTO) 6.1 % (20.0-44.0); MEAN CORPUSCULAR HGB CONC 33 g/dl (31.0-36.0); MEAN CORPUSCULAR VOLUME 91 fL (80-96); MONOCYTES # (AUTO) 0.6 /CMM (0.1-1.30); MONOCYTES % (AUTO) 4.8 % (2.0-12.0); NEUTROPHILS # (AUTO) 10.5 /CMM (1.8-8.9); NEUTROPHILS % (AUTO) 88.6 % (43.0-81.0); PLATELET COUNT (AUTO) 308 /CMM (150-450); RED BLOOD CELL COUNT(AUTO) 3.43 MIL/uL (4.5-6.0); WHITE BLOOD COUNT (AUTO) 11.8 K/uL (4.3-11.0)
[2020-01-11 05:26] LABS: POTASSIUM 2.8 mmol/L (3.5-5.1)
[2020-01-11] MEDS: PROPOFOL 100 ML IV PRN ×6 (06:01→22:56)
--- NOTE | 2020-01-11 06:50 | NUR ---
RN NOTES PATIENT REMAINED ON DIPRIVAN CALM AND COOPERATIVE. VENT SETTING TOLERATING WELL ORDERED. CONTINUES ON YUN TOLERATING WELL. VITAL SIGNS STABLE. NGT IN PLACE FEEDING TOLERATING WELL. RT FEMORAL TLC INTACT, PATENT FLUSHES WELL. F/C INTACT YELLOW URINE RUNNING TO GRAVITY. PATIENT REMAINED AFEBRILE. ALL SAFETY MEASURES IN PLACE, CALL LIGHT WITHIN REACH. WILL ENDORSE TO AM NURSE FOR KEN. Addendum: 01/11/20 at 0658 by LAURA FRYE RN ERROR IN CHARTING- PATIENT WITH AKIKO PICC LINE NOTE RT FEMORAL TLC.
--- NOTE | 2020-01-11 07:15 | NUR ---
OFFENDER JOB RETENTION SPECIALIST NOTES RECEIVED PATIENT MILDLY SEDATED , OPENS EYES , RESPONSIVE TO VERBAL STIMULI , NOT IN ACUTE DISTRESS ,RESPIRATIONS EVEN AND UNLABORED WITH SPO2 OF 100% , ETT 7.11/[address] SR75 ON BEDSIDE MONITOR , R NARE NGT WITH GLUCERNA @ 30ML/HR NOTED WITH 5ML RESIDUALS , FC DRAINING VIA GRAVITY WITH YELLOW / GREENISH OUTPUT , AKIKO PICC LINE WITH DIPRIVAN @ 30MCG/KG/MIN , NORSYNEPHRINE 0.3MCG/KG/MIN INFUSING WELL , ALL NEEDS ATTENDED , WILL CONTINUE TO MONITOR
--- NOTE | 2020-01-11 07:17 | NUR ---
[facility] SPECIALISTS NOTES SEEN AND EVALUATED BY DR GARCIA PT STABLE AT THIS TIME ,RECEIVED ORDERS FOR REPLACEMENT
[2020-01-11] MEDS: POTASSIUM CL. PREMIX PERIPHER. 50 ML IV SCH ×6 (07:53→13:28)
[2020-01-11] MEDS: Magnesium 1GM/D5W 100ML PREMIX 100 ML IV SCH ×2 (07:53→09:02)
--- NOTE | 2020-01-11 08:00 | NUR ---
COMMERCIAL DESIGNER NOTES SEDATION VACATION DONE PT NOTED WITH MILD AGITATION RR 20-25 , VENT ALARMING NOTED WITH DISTRESS , PT OPENS EYES , TRACKS FOLLOWS SIMPLE COMMANDS IN TAMAZIGHT , DOMINICK RESTARTED
[2020-01-11] MEDS: HYDROCORTISONE SOD SUCCINATE 100 MG/2 ML VIAL IV SCH ×3 (08:06→16:40)
[2020-01-11] MEDS: METFORMIN 500 MG TABLET PO SCH ×2 (08:06→16:39)
[2020-01-11] MEDS: ENOXAPARIN SODIUM 40 MG/0.4 ML DISP.SYRIN SQ SCH (08:31)
[2020-01-11] MEDS ORDERED: POTASSIUM PHOSPHATE MM 15 MMOL in IV NS 0.9% 250 ML IV SCH (09:00)
--- NOTE | 2020-01-11 09:00 | NUR ---
SECTION CHIEF NOTES SEEN AND EVALUATED BY DR VÁSQUEZ , DISCUSSED LABS , CURRENT V/S , AFEBIRLE , ON NORSYNEPHRINE @ 0.3MCG/KG/MIN , SEDATION VACATION DONE , PT TRACKS , FOLLOW SIMPLE COMMANDS IN [facility] , NOTED WITD DISTRESS OF SEDATION , MD AWARE
--- NOTE | 2020-01-11 09:13 | NUR ---
vent changes below per dr. avila: [phone] Addendum: 01/11/20 at 0913 by DARIAN MARSH RT Amended: Links added.
--- NOTE | 2020-01-11 11:35 | NUR ---
METAL CEILING HANGER NOTES SEDATION VACATION DONE , PT OPENS EYES , DOESN'T FOLLOW COMMANDS , DROWSY , NOTED WITH RR OF 33-35CPM , WITH DISTRESS SPO2 OF 92% , HR WENT UP TO ST 105 , AGITATED , SEDATION RESUMED . WILL CONTINUE TO MONITOR Addendum: 01/11/20 at 1137 by PENELOPE MCCRAY RN MEGGAN PATIENT WISAM
[2020-01-11 12:49] LABS: ABG BASE EXCESS 7.8 mmol/L; ABG OXYGEN SATURATION 92.1 % (92.0-98.5); ABG PH 7.496 (7.350-7.450); ABG PO2 65.6 mmHg (75.0-100.0); AaDO2 243.7 mmHg; COHb 0.1 % (0.5-1.5); MetHb 0.5 % (0.0-1.5); O2Hb 91.5 % (94.0-97.0); PEEP,BG 8 cm H2O; SITE, ABG Right Radial; VT, ABG 500 mL
[2020-01-11] MEDS: GLUCERNA 1.2 1,000 ML BOTTLE GT PRN (14:37)
[2020-01-11] MEDS: HYDROCODONE/APAP 5/325MG 1 EACH TABLET PO PRN (17:02)
[2020-01-11] MEDS: PHENYLEPHRINE 50 MG in IV NS 0.9% 245 ML IV PRN (17:03)
--- NOTE | 2020-01-11 19:08 | NUR ---
SURGICAL SUPPLY ASSISTANT NOTES PT STABLE AT THIS TIME , TOLERATING CURRENT VENT SETTINGS OF AC 18 TV 500 FIO2 50% PEEP OF 10 WITH SPO2 OF 100% NO DISTRESS NOTED , SR 75 ON BEDSIDE MONITOR , R NARE NGT WITH GLUCERNA @ 30ML/HR TOLERATING WELL , FC DRAINING VIA GRAVITY , AKIKO PICC LINE WITH DIPRIVAN @ 50MCG/KG/MIN , NS @ TKO AND NEOSYNEPRINE @ 0.15 MCG/KG/MIN INFUSING WELL , REPORT GIVEN TO ROBERTO CARLOS JON FOR CONTINUITY OF CARE
--- NOTE | 2020-01-11 20:12 | NUR ---
OUTSIDE SALES ACCOUNT MANAGER. INITIAL ASSESSMENT. RECEIVED THE PT REST ON THE BED. ORALLY INTUBATED. SEDATED WITH DIPRIVAN 50MCG/KG/MIN, ETT 7.5,LIP 23CM,AC 18,TV 500,FIO2 50%,PEEP 10. SAT 98%. NO ACUTE DISTRESS NOTED, CONDUIT MECHANIC SHOWING NSR.FC PATENT. URINE DRAINING. YINKA SOFT WRIST RESTRAINT CHECKED AND RELEASED, NO INJURY OR REDNESS NOTED. RT NARE NGT INTACT. GLUCERNA 30ML/H. IV RT UPPER ARM PICC LINE DIPRIVAN 50MCG/KG/MIN,YUN 0.15MCG/KG/MIN,HOB ELEVATED. YINKA SOFT WRIST RESTRAINT CHECKED AND RELEASED. NO INJURY OR REDNESS NOTED. AFEBRILE. WILL CONTINUE TO MONITOR VITALS.
[2020-01-12] VITALS (86 sets, daily range): BP systolic 75–151; BP diastolic 42–100
[2020-01-12] MEDS: INSULIN REGULAR, HUMAN 100 UNIT/ML 3 ML VIAL SQ PRN ×4 (01:26→17:30)
[2020-01-12] MEDS: BLOOD SUGAR DIAGNOSTIC 1 EACH STRIP IN SCH ×4 (01:27→17:27)
[2020-01-12] MEDS: PROPOFOL 100 ML IV PRN ×5 (03:14→19:58)
--- NOTE | 2020-01-12 04:35 | NUR ---
RETAIL INVENTORY CONTROL CLERK. AM CARE, ORAL CARE, BED BATH GIVEN. LINEN CHANGED. REMAINING SAME VENT SETTING TOLERATED WELL. SAT 99%. NO ACUTE DISTRESS NOTED.ACID PURIFICATION EQUIPMENT OPERATOR SHOWING NSR, IV RT UPPER ARM PICC LINE. DIPRIVAN 50MCG/KG/MIN,YUN 0.4MCG/KLG/MIN.FC PATENT. URINE DRAINING. HOB ELEVATED. NGT FEEDING TOLERATED WELL. TURN AND REPOSITION Q2H. WILL CONTINUE TO MONITOR VITALS.
[2020-01-12 05:27] LABS: BASOPHILS % (AUTO) 0.1 % (0.0-2.0); EOSINOPHILS % (AUTO) 0.2 % (0.0-6.0); HEMATOCRIT 34 % (39-51); HEMOGLOBIN 11.2 g/dL (13.5-17.5); LYMPHOCYTES # (AUTO) 0.6 /CMM (0.8-4.8); LYMPHOCYTES % (AUTO) 4.3 % (20.0-44.0); MEAN CORPUSCULAR HGB CONC 33 g/dl (31.0-36.0); MEAN CORPUSCULAR VOLUME 93 fL (80-96); MONOCYTES # (AUTO) 0.7 /CMM (0.1-1.30); MONOCYTES % (AUTO) 5.4 % (2.0-12.0); PLATELET COUNT (AUTO) 304 /CMM (150-450); RED BLOOD CELL COUNT(AUTO) 3.64 MIL/uL (4.5-6.0); WHITE BLOOD COUNT (AUTO) 13.4 K/uL (4.3-11.0)
[2020-01-12 05:49] LABS: CALCIUM, SERUM 7.8 mg/dL (8.5-10.1); CARBON DIOXIDE 33 mmol/L (21-32); CHLORIDE 105 mmol/L (98-107); CREATININE 0.4 mg/dL (0.6-1.3); GLUCOSE 168 mg/dL (74-106); MAGNESIUM 1.8 mg/dL (1.8-2.4); PHOSPHORUS 2.5 mg/dL (2.5-4.9); POTASSIUM 3.1 mmol/L (3.5-5.1); SODIUM SERUM 142 mmol/L (136-145); UREA NITROGEN, BLOOD 18 mg/dL (7-18)
--- NOTE | 2020-01-12 07:50 | NUR ---
COMMISSION ASSOCIATE OPENING NOTES RECEIVED PATIENT IN BED, SEDATED ON DIPRIVAN. ON MECHANICAL VENTILATOR WITH SETTINGS ORDERED. TOLERATING WELL, O2 SATURATION AT 100%, NO SIGNS OF RESPIRATORY DISTRESS NOTED. ON TELE MONITOR WITH GAURANG SINUS RHYTHM NOTED. GT IS INTACT, PATENT, AND FLUSHED WELL. FEEDING RUNNING ORDERED. TOLERATING WELL. GORDON CATHETER IS INTACT, URINE DRAINING. R UPPER ARM PICC LINE IS INTACT, PATENT AND FLUSHED WELL. DIPRIVAN AND YUN RUNNING ORDERED. SAFETY MAINTAINED, CALL LIGHT WITHIN REACH, WILL CONTINUE TO MONITOR CLOSELY.
--- NOTE | 2020-01-12 08:18 | NUR ---
WOUND CARE FOLLOW UP: REVIEWED CHART, NURSING DOCUMENTATION AND PHOTOS. PT REMAINS INTUBATED ON VENTILATOR, ON PRESSORS WITH MULTIPLE CO-MORBIDITIES INCLUDING RESPIRATORY FAILURE, PNEUMONIA, COVID 19 INFECTION, DIABETES WITH SACRAL DEEP TISSUE INJURY IN EVOLUTION. WOUND IS FOLLOWED BY SURGICAL TEAM. ALL SKIN PROTECTION MEASURES IN PLACE. DISCUSSED WITH NURSING STAFF. DUE TO MULTIPLE CO-MORBIDITIES, FURTHER SKIN BREAKDOWN MAY BE UNAVOIDABLE. PT IS ON FIRST STEP [facility] AIRLOSS MATTRESS. IN AGREEMENT WITH PLAN OF CARE.
[2020-01-12] MEDS ORDERED: POTASSIUM CHLORIDE 20 MEQ POWDER PACKET GT SCH (08:30)
[2020-01-12] MEDS: HYDROCORTISONE SOD SUCCINATE 100 MG/2 ML VIAL IV SCH ×3 (09:10→17:08)
[2020-01-12] MEDS: METFORMIN 500 MG TABLET PO SCH ×2 (09:10→17:08)
[2020-01-12] MEDS: ENOXAPARIN SODIUM 40 MG/0.4 ML DISP.SYRIN SQ SCH (09:12)
[2020-01-12] MEDS: PHENYLEPHRINE 50 MG in IV NS 0.9% 245 ML IV PRN (09:48)
--- NOTE | 2020-01-12 12:00 | NUR ---
RN NOTE PATIENT GORDON CATHETER WAS LEAKING. REPLACED THE GORDON CATHETER. INTACT, URINE DRAINING NOTED. SAFETY MAINTAINED, CALL LIGHT WITHIN REACH, WILL CONTINUE TO MONITOR CLOSELY.
--- NOTE | 2020-01-12 18:16 | NUR ---
RN NOTE NO ACUTE CHANGES TO PATIENT CONDITION DURING MY SHIFT. REMAINED ON MECHANICAL VENTILATOR WITH SETTINGS ORDERED. PEEP WAS DECREASED TO 8 DURING MY SHIFT. PATIENT TOLERATING VENT SETTINGS WELL, NO SIGNS OF ACUTE RESPIRATORY DISTRESS NOTED. SATURATION AT 99%. ALL PATIENT NEEDS WERE MET, KEPT CLEAN AND DRY, SAFETY MAINTAINED, CALL LIGHT WITHIN REACH, WILL ENDORSE TO PM NURSE FOR CONTINUITY OF CARE.
--- NOTE | 2020-01-12 19:45 | NUR ---
ICU/MANAGER TEST REPORT RECEIVED FROM THE TO DAY NURSE. SEE FLOWSHEET FOR ASSESSMENT, SKIN ISSUES ARE ADDRESSED ON FLOWSHEET ALONG WITH INTERVENTION TO EACH. PT PROPERLY SEDATED WITH DIPRIVAN AT 50MCG. PT ORALLY INTUBATED WITH SATURATION AT 100'S%. WILL MONITOR THIS PT AND HIS SATURATION. PT WAS TURNED AND REPOSITIONED FOR COMFORT AND CARE. NO ACUTE DISTRESS SEEN AT THIS TIME, WILL CONTINUE TO MONITOR THIS PT.
--- NOTE | 2020-01-12 20:02 | NUR ---
RT NOTE PT rec'd orally intubated via ETT #7.5 secured @ 23CM at the lipline. pt on [facility] vent on AC mode settings as charted. Pt shows no signs of resp distress or sob. Pt sx'd. Alarms are set and auidble. Vent plugged into red outlet. Ambu bag bedside. Will continue to monitor cloesly. Addendum: 01/12/20 at 2002 by JOHN ROSEN RT Amended: Links added.
--- NOTE | 2020-01-12 21:00 | NUR ---
ICU/REPULPING SUPERVISOR PT APPEARED TO BE IN PAIN, NORCO 1 TAB GIVEN FOR THIS. FLACC WAS RATED AT 8/10. WILL CONTINUE TO MONITOR THIS PT.
[2020-01-12] MEDS: HYDROCODONE/APAP 5/325MG 1 EACH TABLET PO PRN (21:12)
--- NOTE | 2020-01-12 22:45 | NUR ---
ICU/C T TECH PT WAS PROVIDED ORAL CARE AT THIS TIME, THEN PT GIVEN PM CARE. PT TOLERATED THIS WELL, REMAINS ON CURRENT VENT WITH SATURATION AT 99%. PT WAS TURNED AND REPOSITIONED FOR COMFORT AND CARE. WILL CONTINUE TO MONITOR THIS PT
[2020-01-13] VITALS (88 sets, daily range): BP systolic 59–172; BP diastolic 30–106
[2020-01-13] MEDS: PROPOFOL 100 ML IV PRN ×6 (00:32→23:21)
[2020-01-13] MEDS: BLOOD SUGAR DIAGNOSTIC 1 EACH STRIP IN SCH ×4 (00:34→18:18)
[2020-01-13] MEDS: INSULIN REGULAR, HUMAN 100 UNIT/ML 3 ML VIAL SQ PRN ×3 (00:43→17:59)
[2020-01-13] MEDS: PHENYLEPHRINE 50 MG in IV NS 0.9% 245 ML IV PRN ×3 (00:52→19:19)
--- NOTE | 2020-01-13 02:30 | NUR ---
ICU/PLATER PRINTED CIRCUIT BOARD PANELS PT WAS PROVIDED ORAL CARE AT THIS TIME, THEN PT GIVEN AM CARE. PT TOLERATED THIS WELL, REMAINS ON CURRENT VENT WITH SATURATION AT 99%. PT WAS TURNED AND REPOSITIONED FOR COMFORT AND CARE. WILL CONTINUE TO MONITOR THIS PT
[2020-01-13 05:13] LABS: BASOPHILS % (AUTO) 0.1 % (0.0-2.0); EOSINOPHILS % (AUTO) 0.4 % (0.0-6.0); HEMATOCRIT 33 % (39-51); HEMOGLOBIN 10.8 g/dL (13.5-17.5); LYMPHOCYTES # (AUTO) 0.7 /CMM (0.8-4.8); LYMPHOCYTES % (AUTO) 7.7 % (20.0-44.0); MEAN CORPUSCULAR HGB CONC 33 g/dl (31.0-36.0); MEAN CORPUSCULAR VOLUME 91 fL (80-96); MONOCYTES # (AUTO) 0.6 /CMM (0.1-1.30); MONOCYTES % (AUTO) 6.4 % (2.0-12.0); NEUTROPHILS # (AUTO) 7.9 /CMM (1.8-8.9); NEUTROPHILS % (AUTO) 85.4 % (43.0-81.0); PLATELET COUNT (AUTO) 275 /CMM (150-450); RED BLOOD CELL COUNT(AUTO) 3.61 MIL/uL (4.5-6.0); WHITE BLOOD COUNT (AUTO) 9.3 K/uL (4.3-11.0)
[2020-01-13 05:20] LABS: CALCIUM, SERUM 7.6 mg/dL (8.5-10.1); CARBON DIOXIDE 35 mmol/L (21-32); CHLORIDE 102 mmol/L (98-107); CREATININE 0.4 mg/dL (0.6-1.3); GLUCOSE 141 mg/dL (74-106); SODIUM SERUM 142 mmol/L (136-145); UREA NITROGEN, BLOOD 13 mg/dL (7-18)
--- NOTE | 2020-01-13 05:20 | NUR ---
ICU/BLENDER / COOK AM LABS WERE DONE, WAIT FOR ANY ABNORMAL RESULTS.
[2020-01-13 05:30] LABS: POTASSIUM 2.5 mmol/L (3.5-5.1)
--- NOTE | 2020-01-13 06:35 | NUR ---
END OF SHIFT NOTE: PT HAD A FAIRLY UNEVENTFUL SHIFT. TMAX TODAY WAS 100.5 RECTALLY, PT GIVEN TYLENOL AT 1800. 1 BM THIS SHIFT. TOTAL URINE OUTPUT WAS 490ML THIS SHIFT. YUN-SYNEPHRINE CURRENTLY INFUSING AT 1.2 MCG/KG/MIN, TITRATED PER MD ORDERS. NEW ORDERS FOR [facility] CULTURES PER KATHIE RECOVERY ROOM RN, BLOOD CULTURES TO BE DRAWN FROM PICC LINE. NONE OF THE CULTURES HAVE BEEN SENT AT THIS TIME. WILL ENDORSE TO NEXT SHIFT IF ANY OF THE CULTURES HAD BEEN DONE IN THE NEXT 20 MINUTES. PT CHECKED ON HOURLY AND PRN BY NURSING STAFF.
[2020-01-13] MEDS ORDERED: POTASSIUM CL. PREMIX PERIPHER. 50 ML IV SCH ×3 (07:00→08:30)
[2020-01-13] MEDS: GLUCERNA 1.2 1,000 ML BOTTLE GT PRN (07:00)
[2020-01-13 08:30] LABS: ABG BASE EXCESS 6.8 mmol/L; ABG OXYGEN SATURATION 97.9 % (92.0-98.5); ABG PCO2 40.8 mmHg (35.0-45.0); ABG PH 7.493 (7.350-7.450); ABG PO2 108.6 mmHg (75.0-100.0); COHb 0.1 % (0.5-1.5); O2Hb 97.8 % (94.0-97.0); SITE, ABG Left Radial; VENT MODE, BG AC 18 500 +10 50%
[2020-01-13] MEDS: METFORMIN 500 MG TABLET PO SCH ×2 (09:37→17:18)
[2020-01-13] MEDS: HYDROCORTISONE SOD SUCCINATE 100 MG/2 ML VIAL IV SCH ×3 (09:37→17:18)
[2020-01-13] MEDS: POTASSIUM CHLORIDE 20 MEQ POWDER PACKET NG SCH ×2 (09:37→09:38)
[2020-01-13] MEDS: ENOXAPARIN SODIUM 40 MG/0.4 ML DISP.SYRIN SQ SCH (09:40)
--- NOTE | 2020-01-13 10:14 | NUR ---
SEDATION VACATION STOPPED AFTER 5 MINUTES D/T PT'S VS BECOMING UNSTABLE, BP LOW, HR RAISING. DR. VÁSQUEZ NOTIFIED.
[2020-01-13 11:10] LABS: ABG BASE EXCESS 6.9 mmol/L; ABG OXYGEN SATURATION 96.6 % (92.0-98.5); ABG PCO2 36.2 mmHg (35.0-45.0); ABG PH 7.534 (7.350-7.450); ABG PO2 82.5 mmHg (75.0-100.0); AaDO2 233.3 mmHg; COHb 0.4 % (0.5-1.5); O2Hb 96.2 % (94.0-97.0); PEEP,BG 10 cm H2O; SITE, ABG Left Radial; VENT MODE, BG AC 50%; VT, ABG 500 mL
--- NOTE | 2020-01-13 16:00 | NUR ---
TEMP AT 1600 WAS 100.5. PT HAD SEVERAL BLANKETS ON HIM. BLANKETS REMOVED. NO TYLENOL GIVEN AT THIS TIME. WILL CONTINUE TO MONITOR.
[2020-01-13] MEDS: ACETAMINOPHEN 325 MG TABLET PO PRN (17:18)
[2020-01-13] MEDS ORDERED: FEE PK DOSING 1 MIN EA MC ONE (18:55)
--- NOTE | 2020-01-13 19:01 | NUR ---
BLOOD CULTURES AND URINE CULTURE SENT TO LAB
--- NOTE | 2020-01-13 19:47 | NUR ---
JOINER APPRENTICE. INITIAL ASSESSMENT. RECEIVED THE PT REST ON THE BED, ORALLY INTUBATED. SEDATED WITH DIPRIVAN. ETT 7.5,LIP 23,AC 18,TV 500,FIO2 50%,PEEP 8. SAT 98%. TRUCK CRANE OPERATOR HELPER SHOWING S TACH. FC PATENT. YINKA HAND BEEPING RT NARE NGT FEEDING TOLERATED WELL.IV RT UPPER ARM PICC LINE TKO 5ML/H, DIPRIVAN 50MCG/KG/MIN.YUN 0.5MCG/KG/MIN HOB ELEVATED. WILL CONTINUE TO MONITOR VITALS.
--- NOTE | 2020-01-13 20:02 | NUR ---
AERIAL HURRICANE HUNTER. PT WAS AGITATED. DIPRIVAN INCREASED. PER PROTOCOL
[2020-01-13] MEDS: VANCOMYCIN 1 GM in IV D5W 250 ML IV SCH (20:08)
[2020-01-13] MEDS: CEFEPIME 2 GM in IV D5W 100 ML IV SCH (20:23)
[2020-01-13] MEDS: IV NS 0.9% 250 ML IV PRN (20:26)
[2020-01-14] VITALS (47 sets, daily range): BP systolic 81–174; BP diastolic 43–97
[2020-01-14] MEDS: BLOOD SUGAR DIAGNOSTIC 1 EACH STRIP IN SCH ×4 (00:33→16:16)
[2020-01-14] MEDS: INSULIN REGULAR, HUMAN 100 UNIT/ML 3 ML VIAL SQ PRN ×3 (00:33→17:20)
--- NOTE | 2020-01-14 03:13 | NUR ---
LEGAL DIRECTOR. AM CARE, ORAL CARE, BED BATH GIVEN. LINEN CHANGED. REMAINING SAME VENT SETTING TOLERATED WELL. SAT 98%, NO ACUTE DISTRESS NOTED, CAN TESTER SHOWING NSR, IV RT UPPER ARM PICC LINE. IVF TKO RUNNING, YUN 0.1MCG/KG/MIN DIPRIVAN 50MCG/KG/MIN,HOB ELEVATED.FC PATENT. URINE DRAINING. TEMPERATURE 99. TURN AND REPOSITION Q2H. WILL CONTINUE TO MONITOR VITALS.
[2020-01-14] MEDS: PROPOFOL 100 ML IV PRN ×4 (04:17→21:03)
[2020-01-14] MEDS: GLUCERNA 1.2 1,000 ML BOTTLE GT PRN (04:55)
[2020-01-14 04:58] LABS: BASOPHILS % (AUTO) 0.2 % (0.0-2.0); EOSINOPHILS % (AUTO) 0.2 % (0.0-6.0); HEMATOCRIT 30 % (39-51); HEMOGLOBIN 9.9 g/dL (13.5-17.5); LYMPHOCYTES # (AUTO) 0.6 /CMM (0.8-4.8); LYMPHOCYTES % (AUTO) 6.3 % (20.0-44.0); MEAN CORPUSCULAR HGB CONC 33 g/dl (31.0-36.0); MEAN CORPUSCULAR VOLUME 91 fL (80-96); MONOCYTES # (AUTO) 0.5 /CMM (0.1-1.30); MONOCYTES % (AUTO) 4.8 % (2.0-12.0); NEUTROPHILS % (AUTO) 88.5 % (43.0-81.0); PLATELET COUNT (AUTO) 250 /CMM (150-450); RED BLOOD CELL COUNT(AUTO) 3.26 MIL/uL (4.5-6.0); WHITE BLOOD COUNT (AUTO) 10.1 K/uL (4.3-11.0)
[2020-01-14 05:16] LABS: ALANINE AMINOTRANSFERASE 22 U/L (12-78); ALBUMIN 1.6 g/dL (3.4-5.0); ALKALINE PHOSPHATASE 98 U/L (46-116); ASPARTATE AMINOTRANSFERASE 23 U/L (15-37); BILIRUBIN,TOTAL 0.4 mg/dL (0.2-1.0); CALCIUM, SERUM 7.7 mg/dL (8.5-10.1); CARBON DIOXIDE 35 mmol/L (21-32); CHLORIDE 103 mmol/L (98-107); CREATININE 0.4 mg/dL (0.6-1.3); GLUCOSE 197 mg/dL (74-106); MAGNESIUM 1.7 mg/dL (1.8-2.4); PHOSPHORUS 2.1 mg/dL (2.5-4.9); SODIUM SERUM 141 mmol/L (136-145); TOTAL PROTEIN, SERUM 5.3 g/dL (6.4-8.2); UREA NITROGEN, BLOOD 15 mg/dL (7-18)
[2020-01-14 05:23] LABS: POTASSIUM 2.7 mmol/L (3.5-5.1)
[2020-01-14] MEDS: POTASSIUM CL. PREMIX PERIPHER. 50 ML IV SCH ×8 (06:20→17:10)
--- NOTE | 2020-01-14 07:12 | NUR ---
CONTROL AND RECOVERY COMBAT RESCUE. UYN EXPIRATION TIME WAS 0620. PHARMACY MADE AWARE. X2 CALLED FOR THE YUN. PT WAS ON YUN 0.2MCG/KG/MIN
[2020-01-14] MEDS: PHENYLEPHRINE 50 MG in IV NS 0.9% 245 ML IV PRN (07:39)
[2020-01-14] MEDS: ENOXAPARIN SODIUM 40 MG/0.4 ML DISP.SYRIN SQ SCH (08:54)
[2020-01-14] MEDS: METFORMIN 500 MG TABLET PO SCH ×2 (08:54→16:16)
[2020-01-14] MEDS: HYDROCORTISONE SOD SUCCINATE 100 MG/2 ML VIAL IV SCH ×3 (08:54→16:15)
[2020-01-14] MEDS: CEFEPIME 2 GM in IV D5W 100 ML IV SCH ×2 (10:20→21:11)
[2020-01-14] MEDS ORDERED: NEUTRA PHOS 1 POWD.PACKET PO ONE (12:00)
[2020-01-14] MEDS: VANCOMYCIN 1 GM in IV D5W 250 ML IV SCH (13:41)
[2020-01-14] MEDS: Magnesium 1GM/D5W 100ML PREMIX 100 ML IV SCH ×2 (18:02→19:45)
--- NOTE | 2020-01-14 22:26 | NUR ---
RN NOTES RECEIVED PATIENT IN BED INTUBATED MILDLY SEDATED. VENT SETTING TOLERATING WELL ORDERED. NO S/S OF DISTRESS NOTED. TELE MONITOR SHOWS NSR. RT NARES NGT IN PLACE TOLERATING WELL. AKIKO PICC LINE INTACT, PATENT FLUSHES WELL. F/C INTACT YELLOW URINE RUNNING TO GRAVITY. ALL SAFETY MEASURES IN PLACE, CALL LIGHT WITHIN REACH. WILL CONT TO MONITOR FOR KEN. Addendum: 01/14/20 at 2228 by LAURA FRYE RN INITIAL NOTES FOR 0. ERROR IN CHARTING
[2020-01-15] VITALS (81 sets, daily range): BP systolic 89–142; BP diastolic 48–86
[2020-01-15] MEDS: PHENYLEPHRINE 50 MG in IV NS 0.9% 245 ML IV PRN ×2 (00:02→10:35)
[2020-01-15] MEDS: BLOOD SUGAR DIAGNOSTIC 1 EACH STRIP IN SCH ×4 (00:37→17:48)
[2020-01-15] MEDS: INSULIN REGULAR, HUMAN 100 UNIT/ML 3 ML VIAL SQ PRN ×3 (00:37→18:02)
[2020-01-15] MEDS: PROPOFOL 100 ML IV PRN ×5 (02:57→22:54)
[2020-01-15 04:10] LABS: BASOPHILS % (AUTO) 0.3 % (0.0-2.0); EOSINOPHILS % (AUTO) 0.5 % (0.0-6.0); HEMATOCRIT 31 % (39-51); HEMOGLOBIN 10.2 g/dL (13.5-17.5); LYMPHOCYTES # (AUTO) 0.9 /CMM (0.8-4.8); LYMPHOCYTES % (AUTO) 8.1 % (20.0-44.0); MEAN CORPUSCULAR HGB CONC 33 g/dl (31.0-36.0); MEAN CORPUSCULAR VOLUME 92 fL (80-96); MONOCYTES # (AUTO) 0.6 /CMM (0.1-1.30); MONOCYTES % (AUTO) 4.9 % (2.0-12.0); NEUTROPHILS % (AUTO) 86.2 % (43.0-81.0); PLATELET COUNT (AUTO) 246 /CMM (150-450); RED BLOOD CELL COUNT(AUTO) 3.33 MIL/uL (4.5-6.0); WHITE BLOOD COUNT (AUTO) 11.6 K/uL (4.3-11.0)
[2020-01-15 04:38] LABS: CALCIUM, SERUM 7.7 mg/dL (8.5-10.1); CARBON DIOXIDE 34 mmol/L (21-32); CHLORIDE 105 mmol/L (98-107); CREATININE 0.4 mg/dL (0.6-1.3); GLUCOSE 129 mg/dL (74-106); MAGNESIUM 1.8 mg/dL (1.8-2.4); PHOSPHORUS 2.1 mg/dL (2.5-4.9); SODIUM SERUM 143 mmol/L (136-145); UREA NITROGEN, BLOOD 14 mg/dL (7-18)
[2020-01-15 04:41] LABS: POTASSIUM 2.7 mmol/L (3.5-5.1)
--- NOTE | 2020-01-15 06:15 | NUR ---
BLOOD SUGAR NOTED 71, DR. MILLER AWARE NEW ORDER RECEIVED TO GIVE D5W AT 75ML/HR. ORDER INPUT BY THE CHARGE NURSE AND CARRIED OUT. Addendum: 01/15/20 at 0723 by SIMON MONAE RN CLARIFICATION OF ORDER: D5NS @ 75ML/HR
--- NOTE | 2020-01-15 06:20 | NUR ---
MEDICAL MALPRACTICE PARALEGAL NOTES POTASSIUM LEVEL RESULT 2.7. RESULT REALYED TO ANGELA COPELAND NP. PROVIDER WITH NEW ORDER FOR 60MEQ KCL IV BOLUS. ORDER READ BACK FOR CLARIFICATION. WILL CARRY OUT NEW ORDERS
[2020-01-15] MEDS ORDERED: IV D5/ 0.9% NACL 1,000 ML IV PRN (06:30)
[2020-01-15] MEDS: POTASSIUM CL. PREMIX PERIPHER. 50 ML IV SCH ×6 (06:40→12:47)
--- NOTE | 2020-01-15 06:52 | NUR ---
RN NOTES PATIENT REMAINS SEDATED CONTINUES ON DIPRIVAN. VENT SETTING TOLERATING WELL ORDERED. CONTINUES ON DIPRIVAN RUNNING @40MCG AND YUN AT 0.5MCG TOLERATING WELL. AKIKO PICC LINE PATENT INTACT FLUSHING WELL. GTF OFF D/T TRACH PLACEMENT TODAY. BED BATH GIVEN TOLERATED WELL. WOUND CARE DONE PICTURE TAKEN AND PLACED IN THE CHART. ALL NEEDS ATTENDED, KEPT CLEAN DRY AND COMFORTABLE. WILL ENDORSE TO AM NURSE FOR KEN.
--- NOTE | 2020-01-15 07:15 | NUR ---
BOARD LINING MACHINE OPERATOR NOTES RECEIVED PATIENT MILDLY SEDATED , RESPONSIVE TO VERBAL STIMULI , NOT IN ACUTE DISTRESS , TOLERATING CURRENT VENT SETTINGS WITH SPO2 OF 100 , SR 75 ON BEDSIDE MONITOR , FC DRAINING VIA GRAVITY , AKIKO PICC LINE WITH DIPRIVAN @ 40MCG/KG/MIN , D5NS@ 75ML/HR , NEOSYNEPRINE @ 0.5MCG/KG/MIN , NS @ TKO INFUSING WELL , ALL NEEDS ATTENDED WILL CONTINUE TO MONITOR
[2020-01-15] MEDS: METFORMIN 500 MG TABLET PO SCH ×2 (07:31→17:48)
[2020-01-15] MEDS: ENOXAPARIN SODIUM 40 MG/0.4 ML DISP.SYRIN SQ SCH (07:31)
[2020-01-15] MEDS: VANCOMYCIN 1 GM in IV D5W 250 ML IV SCH (08:03)
[2020-01-15] MEDS: HYDROCORTISONE SOD SUCCINATE 100 MG/2 ML VIAL IV SCH ×3 (08:03→17:48)
[2020-01-15 08:35] LABS: ABG BASE EXCESS 8.8 mmol/L; ABG PCO2 40.2 mmHg (35.0-45.0); ABG PH 7.523 (7.350-7.450); ABG PO2 106.4 mmHg (75.0-100.0); AaDO2 204.9 mmHg; COHb 0.6 % (0.5-1.5); MetHb 0.3 % (0.0-1.5); O2Hb 97.1 % (94.0-97.0); SITE, ABG Right Radial
--- NOTE | 2020-01-15 08:39 | NUR ---
SANITATION TRUCK DRIVER NOTES ABG RELAYED BY BASSAM TO DR VÁSQUEZ , PER MD CHANGE FIO2 TO 40% , SPO2 OF 100% TOLERATING WELL WILL CONTINUE TO MONITOR
[2020-01-15] MEDS: CEFEPIME 2 GM in IV D5W 100 ML IV SCH ×2 (09:25→22:04)
--- NOTE | 2020-01-15 09:42 | NUR ---
MANAGER PRIMARY NOTES SEEN AND EVALUATED BY ANESTHESIOLOGIST , DISCSUSSED LABS TODAY , K OF 2.7 , CURRENTLY REPLACING POTASSIUM , 3 BAGS GIVEN ALREADY , PER SURGEON AND ANSTHESIOLOGIST CASE IS CANCELED , DR VÁSQUEZ AWARE , DISCUSSED POTASSIUM REPLACEMENT WILL BE DONE BY 1-2 PM , PER MD ORDER STAT POTASSIUM AND ADD 40 MEQ TO D5NS @ 75ML/HR , ORDER CARRIED OUT
--- NOTE | 2020-01-15 09:54 | NUR ---
ASSOCIATE TECHNICIAN NOTES NOTIFIED DR GARCIA THAT TRACHEOSTOMY IS CANCELLED , VERIFIED IF HE WANTS TO RESUME PREO ORDERS / NGT FEEDING WITH IVF MD OK TO RESUME FEEDING AND IVF . ORDERS CARRIED OUT
[2020-01-15] MEDS ORDERED: PRECEDEX 400 MCG/100 ML BOTTLE 100 ML IV PRN (10:30)
[2020-01-15] MEDS: GLUCERNA 1.2 1,000 ML BOTTLE GT PRN (12:50)
[2020-01-15] MEDS ORDERED: NEUTRA PHOS 1 POWD.PACKET PO ONE (14:30)
--- NOTE | 2020-01-15 15:19 | NUR ---
TUTORIAL LABORATORY SUPERVISOR NOTES NOTIFIED K OF 3.[address] THALIA MD AWARE ,CONTINUE IVF WITH 40 MEQ KCL AND REPEAT LABS TOMORROW
[2020-01-15] MEDS: Potassium Chloride 40 MEQ in IV D5/ 0.9% NACL 1,000 ML IV PRN (15:41)
--- NOTE | 2020-01-15 16:28 | NUR ---
FRONT END ENGINEER NOTE NOTIFIED DR VÁSQUEZ THAT THERE IS NO CXR FOR TODAY , AWARE , OK TO ORDER FOR TOMORROW
--- NOTE | 2020-01-15 18:29 | NUR ---
WOODWORKING BELT SANDER NOTES CALLED [facility] , VERIFIED IF PT IS TRACHEOSTOMY IS RESCHEDULE FOR TOMORROW , PER NURSING SUP , NO SCHEDULE FOR TRACH AT THIS TIME
--- NOTE | 2020-01-15 18:57 | NUR ---
SUPERVISOR WOUND NOTES PATIENT STABLE , MILDLY SEDATED , CALM AND COOPERATIVE , RESPONSIVE TO VERBAL STIMULI , NOT IN ACUTE DISTRESS , TOLERATING CURRENT VENT SETTINGS WITH SPO2 OF 100 , SR 70 ON BEDSIDE MONITOR , FC DRAINING VIA GRAVITY , AKIKO PICC LINE WITH DIPRIVAN @ 40MCG/KG/MIN , D5NS WITH 40MEQ KCL @ 75ML/HR , NEOSYNEPRINE @ 0.2MCG/KG/MIN , NS @ TKO INFUSING WELL , ALL NEEDS ATTENDED REPORT GIVEN TO ROBERTO CARLOS JON FOR CONTINUITY OF CARE
[2020-01-15] MEDS: FLUCONAZOLE (100 MG) 100 MG TABLET PO SCH (22:04)
--- NOTE | 2020-01-15 22:36 | NUR ---
OPERATOR PREFINISH. INITIAL ASSESSMENT. RECEIVED THE PT REST ON THE BED. ORALLY INTUBATED. SEDATED WITH DIPRIVAN. ETT 7.5,AC 18, LIP 23TV 500,FIO2 40%,PEEP 8. SAT 99%. NO ACUTE DISTRESS NOTED. CHAIN HOIST OPERATOR SHOWING NSR. IV RT UPPER ARM PICC LINE. IVF D5NSIN 40 MEQ POTASSIUM 75 ML/H,DIPRIVAN 40 MCG/KG/MIN,YUN 0.2MCG/KG/MIN, FC PATENT. HOB ELEVATED. NGT GLUCERNA 30 ML/H. AFEBRILE. WILL CONTINUE TO MONITOR VITALS.
[2020-01-16] VITALS (84 sets, daily range): BP systolic 68–129; BP diastolic 39–76
[2020-01-16] MEDS: BLOOD SUGAR DIAGNOSTIC 1 EACH STRIP IN SCH ×4 (01:16→17:33)
[2020-01-16] MEDS: INSULIN REGULAR, HUMAN 100 UNIT/ML 3 ML VIAL SQ PRN ×2 (01:18→06:49)
[2020-01-16 04:10] LABS: BASOPHILS % (AUTO) 0.2 % (0.0-2.0); EOSINOPHILS % (AUTO) 0.3 % (0.0-6.0); HEMATOCRIT 29 % (39-51); HEMOGLOBIN 9.7 g/dL (13.5-17.5); LYMPHOCYTES # (AUTO) 0.5 /CMM (0.8-4.8); LYMPHOCYTES % (AUTO) 5.1 % (20.0-44.0); MEAN CORPUSCULAR HGB CONC 34 g/dl (31.0-36.0); MEAN CORPUSCULAR VOLUME 93 fL (80-96); MONOCYTES # (AUTO) 0.4 /CMM (0.1-1.30); MONOCYTES % (AUTO) 4.3 % (2.0-12.0); NEUTROPHILS # (AUTO) 8.3 /CMM (1.8-8.9); NEUTROPHILS % (AUTO) 90.1 % (43.0-81.0); PLATELET COUNT (AUTO) 198 /CMM (150-450); RED BLOOD CELL COUNT(AUTO) 3.12 MIL/uL (4.5-6.0); WHITE BLOOD COUNT (AUTO) 9.2 K/uL (4.3-11.0)
[2020-01-16 04:16] LABS: CALCIUM, SERUM 7.6 mg/dL (8.5-10.1); CARBON DIOXIDE 30 mmol/L (21-32); CHLORIDE 107 mmol/L (98-107); CREATININE 0.5 mg/dL (0.6-1.3); GLUCOSE 288 mg/dL (74-106); MAGNESIUM 1.8 mg/dL (1.8-2.4); POTASSIUM 4.1 mmol/L (3.5-5.1); SODIUM SERUM 143 mmol/L (136-145); UREA NITROGEN, BLOOD 18 mg/dL (7-18)
[2020-01-16] MEDS: VANCOMYCIN 1 GM in IV D5W 250 ML IV SCH ×2 (04:50→17:35)
[2020-01-16] MEDS: Potassium Chloride 40 MEQ in IV D5/ 0.9% NACL 1,000 ML IV PRN ×2 (05:01→11:30)
--- NOTE | 2020-01-16 05:08 | NUR ---
MANAGER FOREIGN. AM CARE, ORAL CARE, BED BATH GIVEN. LINEN CHANGED. REMAINING SAME VENT SETTING TOLERATED WELL. SAT 99%. FLORIST HELPER SHOWING NSR. IV RT UPPER ARM PICC LINE IVF D5NS IN 40 MEQ POTASSIUM 75 ML/H,DIPRIVAN 40MCG/KG/MIN,YUN 1MCG/KG/MIN, NGT FEEDING TOLERATED WELL. HOB ELEVATED. FC PATENT URINE DRAINING. TURN AND REPOSITION Q2H. WOUND DRESSING DONE. AFEBRILE. WILL CONTINUE TO MONITOR VITALS.
[2020-01-16] MEDS: PROPOFOL 100 ML IV PRN ×3 (05:16→22:09)
[2020-01-16] MEDS: PHENYLEPHRINE 50 MG in IV NS 0.9% 245 ML IV PRN (08:21)
[2020-01-16] MEDS: CEFEPIME 2 GM in IV D5W 100 ML IV SCH ×2 (08:28→21:04)
[2020-01-16] MEDS: ENOXAPARIN SODIUM 40 MG/0.4 ML DISP.SYRIN SQ SCH ×2 (08:30→09:30)
[2020-01-16] MEDS: HYDROCORTISONE SOD SUCCINATE 100 MG/2 ML VIAL IV SCH ×3 (08:30→17:32)
[2020-01-16] MEDS: METFORMIN 500 MG TABLET PO SCH ×2 (08:30→17:32)
[2020-01-16] MEDS: FLUCONAZOLE (100 MG) 100 MG TABLET PO SCH (08:30)
--- NOTE | 2020-01-16 18:38 | NUR ---
ICU/RN CLOSING NOTES Pt's procedure for possible tracheostomy today is still pending. Did not hear from Dr. Kennedy's office when it will be done. Per public health sanitarian technician, waiting for surgery CORE CARRIER for the debridement of sacral wound or change of wound care regimen. Remains on Ramiro drip at 0.025, very labile BP, kept MAP >65 as ordered. Jude CORE CARRIER placed an order to keep pt NPO and hold Lovenox just in case surgery will happen sometime today or early ben. Will give report to restaurant shift supervisor RN.
--- NOTE | 2020-01-16 19:00 | NUR ---
Received patient orally intubated tot he ventilator on AC mode,Covid -19 +,on Contact/enhanced Droplet isolation.Sedated on Propofol drip,RASS-3,not in any distress,breathing non labored. Opens eyes and grimaces to pain,very weak ,no movement of extremities noted. PICC line via AKIKO on Phenylephrine drip for BP support.Comfort care done,needs attended. Feeding on hold(possible Trache), will closely monitor blood sugar, but has IV fluid D5 NSS with KCL.
[2020-01-17] VITALS (87 sets, daily range): BP systolic 65–182; BP diastolic 42–131
--- NOTE | 2020-01-17 | NUR ---
Status unchanged,remains sedated,responds to pain,+ cough.Not in any respiratory distress.
[2020-01-17] MEDS: BLOOD SUGAR DIAGNOSTIC 1 EACH STRIP IN SCH ×5 (00:13→23:29)
[2020-01-17] MEDS: INSULIN REGULAR, HUMAN 100 UNIT/ML 3 ML VIAL SQ PRN ×5 (00:21→23:28)
[2020-01-17] MEDS: Potassium Chloride 40 MEQ in IV D5/ 0.9% NACL 1,000 ML IV PRN ×2 (00:45→11:16)
[2020-01-17] MEDS: PROPOFOL 100 ML IV PRN ×4 (02:55→19:25)
--- NOTE | 2020-01-17 04:00 | NUR ---
AM bath done,tolerated turning without any SOB or desaturation.
[2020-01-17 04:17] LABS: CALCIUM, SERUM 7.4 mg/dL (8.5-10.1); CARBON DIOXIDE 30 mmol/L (21-32); CHLORIDE 107 mmol/L (98-107); CREATININE 0.5 mg/dL (0.6-1.3); GLUCOSE 248 mg/dL (74-106); MAGNESIUM 1.5 mg/dL (1.8-2.4); POTASSIUM 3.7 mmol/L (3.5-5.1); SODIUM SERUM 142 mmol/L (136-145); UREA NITROGEN, BLOOD 16 mg/dL (7-18)
[2020-01-17 04:24] LABS: BASOPHILS % (AUTO) 0.2 % (0.0-2.0); EOSINOPHILS % (AUTO) 0.2 % (0.0-6.0); HEMATOCRIT 31 % (39-51); HEMOGLOBIN 10.3 g/dL (13.5-17.5); LYMPHOCYTES # (AUTO) 0.4 /CMM (0.8-4.8); LYMPHOCYTES % (AUTO) 4.1 % (20.0-44.0); MEAN CORPUSCULAR HGB CONC 33 g/dl (31.0-36.0); MEAN CORPUSCULAR VOLUME 92 fL (80-96); MONOCYTES # (AUTO) 0.3 /CMM (0.1-1.30); MONOCYTES % (AUTO) 2.7 % (2.0-12.0); NEUTROPHILS # (AUTO) 10.1 /CMM (1.8-8.9); NEUTROPHILS % (AUTO) 92.8 % (43.0-81.0); PLATELET COUNT (AUTO) 233 /CMM (150-450); RED BLOOD CELL COUNT(AUTO) 3.38 MIL/uL (4.5-6.0); WHITE BLOOD COUNT (AUTO) 10.9 K/uL (4.3-11.0)
[2020-01-17] MEDS: VANCOMYCIN 1 GM in IV D5W 250 ML IV SCH ×2 (05:00→18:13)
[2020-01-17] MEDS: IV NS 0.9% 250 ML IV PRN (06:37)
--- NOTE | 2020-01-17 07:00 | NUR ---
Report given to Lavonne JON.Still on Neosynephrine drip for BP support,but very sensitive with dose changes, easily drops and easily goes up with dose change.maintained NPO in case going for traheostomy.
--- NOTE | 2020-01-17 07:00 | NUR ---
RN NOTES RECEIVED PT ON BED, INTUBATED, SEDATED ON DIPRIVAN AT 40 MCG/KG/MIN AND YUN AT .5 MCG/KG/MIN FOR BP SUPPORT , TOLERATING CURRENT VENT SETTING WELL, NO DISTRESS NOTED, ON CONTACT AND DROPLET ISOLATION, FOR COVID-19, R UPPER ARM PICC LINE SITE CLEAN, DRY AND INTACT, IVF AT 75CC/HR RUNNING , OGT CLAMPED , PT IS NPO , SR UP x3, CALL LIGHT WITHIN EASY REACH, BED LOCKED AND IN LOWEST POSITION, CONTINUE TO MONITOR.
--- NOTE | 2020-01-17 07:25 | NUR ---
WOUND CARE FOLLOW UP: REVIEWED CHART, NURSING AND MD DOCUMENTATION, PHOTOS AND SPOKE WITH NURSING STAFF WELL Saw [facility]. SACRAL DEEP TISSUE INJURY IN EVOLUTION HAS WOUND BED CHANGES TO INCLUDE NECROTIC TISSUE. RECEIVED NEW ORDERS FROM SURGICAL N.P FOR WOUND CARE. RECOMMENDATIONS MADE FOR WOUND CARE AND SKIN PROTECTION AND DISCUSSED WITH NURSING STAFF. PT CONTINUES TO HAVE MULTIPLE CO-MORBIDITIES INCLUDING SEPSIS, RESPIRATORY FAILURE WITH COVID 19 PNEUMONIA (ON VENTILATOR), ON PRESSORS, SUBCUTANEOUS EMPHYSEMA, AND DIABETES. DUE TO MULTIPLE CO-MORIBIDITIES, FURTHER SKIN BREAKDOWN MAY BE UNAVOIDABLE. ALL SKIN PROTECTION MEASURES IN PLACE. MD IN AGREEMENT WITH PLAN OF CARE.
[2020-01-17 08:25] LABS: ABG BASE EXCESS 1.7 mmol/L; ABG PCO2 41.2 mmHg (35.0-45.0); ABG PH 7.423 (7.350-7.450); ABG PO2 93.1 mmHg (75.0-100.0); AaDO2 144.7 mmHg; COHb 0.5 % (0.5-1.5); MetHb 0.1 % (0.0-1.5); O2Hb 96.4 % (94.0-97.0); SITE, ABG Left Radial; VENT MODE, BG AX 18 500 40% +8
[2020-01-17] MEDS: FLUCONAZOLE (100 MG) 100 MG TABLET PO SCH (08:27)
[2020-01-17] MEDS: HYDROCORTISONE SOD SUCCINATE 100 MG/2 ML VIAL IV SCH ×3 (08:27→16:49)
[2020-01-17] MEDS: METFORMIN 500 MG TABLET PO SCH ×2 (08:27→16:26)
[2020-01-17] MEDS: CEFEPIME 2 GM in IV D5W 100 ML IV SCH (08:28)
[2020-01-17] MEDS: ENOXAPARIN SODIUM 40 MG/0.4 ML DISP.SYRIN SQ SCH ×2 (08:33→12:59)
[2020-01-17] MEDS: DAKINS QUARTER STRENGTH (0.125%) 480 ML BOTTLE TOP SCH (09:08)
[2020-01-17] MEDS: PHENYLEPHRINE 50 MG in IV NS 0.9% 245 ML IV PRN ×2 (10:41→21:07)
[2020-01-17] MEDS: Magnesium 1GM/D5W 100ML PREMIX 100 ML IV SCH ×2 (11:21→12:24)
--- NOTE | 2020-01-17 12:00 | NUR ---
RN NOTES ORAL AND ET TUBE SUCTIONING DONE , VSS STABLE, CONTINUE TO MONITOR .
[2020-01-17] MEDS: GLUCERNA 1.2 1,000 ML BOTTLE GT PRN (12:58)
--- NOTE | 2020-01-17 18:00 | NUR ---
RN NOTES HR IN 120'S , DR ROMAN NOTIFIED , NEW ORDER RECEIVED FOR 500CC NS BOLUS , CONTINUE TO MONITOR .
--- NOTE | 2020-01-17 18:30 | NUR ---
RN NOTES DR KWONG WILL INSERT NEW PICC LINE PER ADELE BOILER ROOM HELPER .
[2020-01-17] MEDS ORDERED: IV NS 0.9% 500 ML IV ONE (19:00)
--- NOTE | 2020-01-17 19:00 | NUR ---
RN NOTES PT REMAINS INTUBATED, ON VENT, LABORED BREATHING NOTED, ENROLLMENT MANAGEMENT VICE PRESIDENT NOITFED, ORDER RECEIVED FOR ABG AND C-XRAY, YUN AT 2.5 MCG/KG/ MIN AT THIS TIME, HR IN 130'S , TF AT 30CC/HR RUNNING , R UPPER ARM PICC LINE SITE CLEAN,DRY AND INTACT, SR UP x3, CALL LIGHT WITHIN EASY REACH, BED LOCKED AND IN LOWEST POSITION, REPORT ENDORSE TO OG JON FOR CONTINUITY OF CARE .
--- NOTE | 2020-01-17 19:10 | NUR ---
RN OPENING NOTES: PATIENT IN BED, INTUBATED, TACHYPNEIC. HR IN 130s. PENDING ABG AND CXR STAT. AFEBRILE AT THIS TIME 98.7F. CHARGE NURSE AWARE. NO S/S OF PAIN. ON GTF. SAFETY PRECAUTIONS IMPLEMENTED. BED LOCKED, LOW POSITION, BILATERAL SIDE RAILS UP. HOB ELEVATED. ON BEDSIDE MONITOR. PER AM RN, KATHIE JUNIOR SALES REPRESENTATIVE ORDERED TO CHANGE PICC LINE AND NOTIFIED DR. KWONG TO DO IT. GORDON CATH INTACT AND PATENT. WILL CONT. TO MONITOR FOR CHANGES.
--- NOTE | 2020-01-17 19:30 | NUR ---
RT NOTE PT RECEIVED AND NOTED TO HAVE LABORED BREATHING. ABG ORDERED AND DRAWN. SX DONE, ET TUBE SECURED AND PATENT. ALARMS ON AND AUDIBLE. VENT PLUGGED TO RED OUTLET. SLICK KLINE @ HOB. WILL CONTINUE TO MONITOR CLOSELY AND AWAIT FURTHER ORDERS. DONTRELL STILES AND CHARGE NURSE HARRY AWARE. Addendum: 01/17/20 at 2029 by FLAVIA LEWIS RT Amended: Links added.
[2020-01-17 19:38] LABS: ABG BASE EXCESS -2.1 mmol/L; ABG OXYGEN SATURATION 94.1 % (92.0-98.5); ABG PCO2 66.2 mmHg (35.0-45.0); ABG PH 7.223 (7.350-7.450); ABG PO2 83.3 mmHg (75.0-100.0); AaDO2 125.8 mmHg; COHb 0.5 % (0.5-1.5); MetHb 0.2 % (0.0-1.5); O2Hb 93.4 % (94.0-97.0); SITE, ABG Left Brachial
--- NOTE | 2020-01-17 19:45 | NUR ---
RN NOTE: SPOKE WITH PHARMACY TO SEND NEW BAG OF YUN AND POTASSIUM CHLORIDE WITH D5 1/2 NS.
--- NOTE | 2020-01-17 19:54 | NUR ---
RN NOTE: ABG AND CXR RESULT RELAYED TO YARA CONNORS. NEW ORDERS NOTED. RT MADE AWARE.
--- NOTE | 2020-01-17 20:30 | NUR ---
RT NOTE NEW SETTINGS ORDERED. CHANGE DONE ON VENT. PT TOLERATING WELL, WILL CONTINUE TO MONITOR CLOSELY. DONTRELL STILES AWARE. Addendum: 01/17/20 at 2030 by FLAVIA LEWIS RT Amended: Links added.
--- NOTE | 2020-01-17 20:30 | NUR ---
RN NOTE: SPOKE WITH PHARMACY TO SEND NEW BAG OF YUN AND POTASSIUM CHLORIDE WITH D5 1/2 NS.
[2020-01-17] MEDS: AMPICILLIN 1 GM in IV NS 0.9% 50 ML IV SCH (20:53)
[2020-01-17] MEDS ORDERED: FUROSEMIDE 20 MG/2 ML VIAL IV ONE (21:00)
--- NOTE | 2020-01-17 22:42 | NUR ---
RN NOTE: PATIENT'S GTF ON HOLD FOR NOW. RESIDUAL 60 MLS AND PATIENT NOTED WITH LOTS OF SECRETIONS. RT AWARE. SUCTIONED ORALLY AND VIA ETT. YARA CONNORS AWARE. Addendum: 01/17/20 at 2251 by MARIE GALAVIZ RN CHARGE NURSE NOLAN AWARE. Addendum: 01/17/20 at 2345 by MARIE GALAVIZ RN RESUMED GTF, RESIDUAL DECREASED TO 10 MLS, INSULIN GIVEN ORDERED, BS 313.
[2020-01-17] MEDS: ACETAMINOPHEN 325 MG TABLET PO PRN (22:50)
[2020-01-17] MEDS ORDERED: NOREPINEPHRINE 4 MG/4 ML AMPUL IV ONE (22:51)
[2020-01-17] MEDS: NOREPINEPHRINE 32 MG in IV NS 0.9% 218 ML IV PRN (23:04)
--- NOTE | 2020-01-17 23:04 | NUR ---
RN NOTE: PATIENT MAXED ON YUN, BP STILL IN 80s. STARTED ON SECOND PRESSOR LEVO ORDERED BY SOCORRO CONNORS. WILL CONT. TO MONITOR. AT 2316, PATIENT'S BP 182/131, HR 160s. LEVO STOPPED. NOTIFIED YARA CONNORS. SATELLITE INSTALLATION TECHNICIAN ORDERED TO START PATIENT ON VASOPRESSIN. WILL CONT. TO MONITOR.
[2020-01-17] MEDS: HYDROCODONE/APAP 5/325MG 1 EACH TABLET PO PRN (23:23)
[2020-01-17] MEDS ORDERED: VASOPRESSIN INJ 20 UNIT/ML VIAL ONE (23:51)
[2020-01-18] VITALS (97 sets, daily range): BP systolic 66–153; BP diastolic 39–122
[2020-01-18] MEDS: PHENYLEPHRINE 50 MG in IV NS 0.9% 245 ML IV PRN ×4 (00:31→07:49)
[2020-01-18] MEDS: VASOPRESSIN INJ 40 UNIT in IV NS 0.9% 38 ML IV PRN ×3 (00:31→08:20)
[2020-01-18] MEDS: PROPOFOL 100 ML IV PRN ×7 (00:33→23:05)
[2020-01-18] MEDS: Potassium Chloride 40 MEQ in IV D5/ 0.9% NACL 1,000 ML IV PRN (00:35)
[2020-01-18] MEDS ORDERED: VASOPRESSIN INJ 20 UNIT/ML VIAL ONE (02:26)
[2020-01-18] MEDS ORDERED: PHENYLEPHRINE 10 MG/ML VIAL ONE (03:31)
[2020-01-18 04:23] LABS: BASOPHILS % (AUTO) 0.2 % (0.0-2.0); HEMATOCRIT 35 % (39-51); HEMOGLOBIN 10.8 g/dL (13.5-17.5); LYMPHOCYTES % (AUTO) 6.3 % (20.0-44.0); MEAN CORPUSCULAR HGB CONC 31 g/dl (31.0-36.0); MEAN CORPUSCULAR VOLUME 95 fL (80-96); MONOCYTES # (AUTO) 0.9 /CMM (0.1-1.30); MONOCYTES % (AUTO) 5.4 % (2.0-12.0); NEUTROPHILS # (AUTO) 14.5 /CMM (1.8-8.9); NEUTROPHILS % (AUTO) 88.1 % (43.0-81.0); PLATELET COUNT (AUTO) 292 /CMM (150-450); RED BLOOD CELL COUNT(AUTO) 3.62 MIL/uL (4.5-6.0); WHITE BLOOD COUNT (AUTO) 16.4 K/uL (4.3-11.0)
[2020-01-18 04:40] LABS: CALCIUM, SERUM 7.5 mg/dL (8.5-10.1); CREATININE 0.6 mg/dL (0.6-1.3); MAGNESIUM 1.9 mg/dL (1.8-2.4); POTASSIUM 3.8 mmol/L (3.5-5.1)
--- NOTE | 2020-01-18 05:00 | NUR ---
RN NOTE: PATIENT MAXED ON BOTH YUN AND VASOPRESSIN DRIPS. YARA CONNORS MADE AWARE. NO NEW ORDERS. WILL CONT. TO MONITOR. Addendum: 01/18/20 at 0529 by MARIE GALAVIZ RN 0515: PATIENT'S BP IN 70s. YARA CONNORS AWARE. NEW ORDER TO GIVE BOLUS OF NS 500 MLS X 1. CHARGE NURSE AWARE. WILL CONT. TO MONITOR.
[2020-01-18] MEDS ORDERED: IV NS 0.9% 500 ML IV ONE (05:30)
[2020-01-18] MEDS: AMPICILLIN 1 GM in IV NS 0.9% 50 ML IV SCH ×2 (05:56→12:11)
--- NOTE | 2020-01-18 06:00 | NUR ---
RT NOTE INCREASED FIO2 TO 60% DUE TO DESATURATION. DONTRELL CHEN.
[2020-01-18] MEDS: BLOOD SUGAR DIAGNOSTIC 1 EACH STRIP IN SCH ×4 (06:02→23:55)
[2020-01-18] MEDS: INSULIN REGULAR, HUMAN 100 UNIT/ML 3 ML VIAL SQ PRN ×4 (06:04→23:55)
--- NOTE | 2020-01-18 07:05 | NUR ---
RN CLOSING NOTES: POSSIBLE TRACH PLACEMENT TOMORROW PER AM RN YESTERDAY. OVERNIGHT EVENTS ENDORSED TO ONCOMING NURSE FOR CONTINUITY OF CARE AND TO F/U WITH TRACH PLACEMENT.
[2020-01-18 08:23] LABS: ABG BASE EXCESS -4.6 mmol/L; ABG OXYGEN SATURATION 98.9 % (92.0-98.5); ABG PCO2 44.5 mmHg (35.0-45.0); ABG PH 7.304 (7.350-7.450); ABG PO2 152.9 mmHg (75.0-100.0); COHb 0.6 % (0.5-1.5); MetHb 0.2 % (0.0-1.5); O2Hb 98.1 % (94.0-97.0); PEEP,BG 8 cm H2O; SITE, ABG Left Radial; VT, ABG 500 mL
[2020-01-18] MEDS: HYDROCORTISONE SOD SUCCINATE 100 MG/2 ML VIAL IV SCH ×3 (09:15→16:31)
[2020-01-18] MEDS ORDERED: Potassium Chloride 40 MEQ in IV D5/ 0.9% NACL 1,000 ML IV SCH ×2 (09:16→10:30)
[2020-01-18] MEDS: METFORMIN 500 MG TABLET PO SCH ×2 (09:17→16:31)
[2020-01-18] MEDS: FLUCONAZOLE (100 MG) 100 MG TABLET PO SCH (09:17)
[2020-01-18] MEDS ORDERED: IV NS 0.9% 1,000 ML IV SCH (10:07)
[2020-01-18] MEDS: ENOXAPARIN SODIUM 40 MG/0.4 ML DISP.SYRIN SQ SCH (10:50)
[2020-01-18] MEDS: DAKINS QUARTER STRENGTH (0.125%) 480 ML BOTTLE TOP SCH (10:58)
[2020-01-18] MEDS: PHENYLEPHRINE 100 MG in IV NS 0.9% 240 ML IV PRN ×2 (12:21→23:05)
[2020-01-18] MEDS: PROSOURCE / PROSTAT (PYXIS) 30 ML UDC GT SCH ×2 (12:43→16:32)
--- NOTE | 2020-01-18 17:57 | NUR ---
ICU/RN CLOSING NOTES: Pt remains sedated with Propofol, was able to titrate down Ramiro drip from 3 to 2 mcg now. Was able to turn off Vasopressin as well. Dr. Kennedy placed a hold for tracheostomy surgery until hemodynamically stable. TF and Lovenox were given per Dr. Alejandre. Was getting some residual from TF, 80 cc at 1200, held TF. 1430: Pt had an episode of tachycardia, HR 140's, temp went up to 100.6. Dr. Nunez made aware and ordered to start pt on Ramiro drip which the pt is already on, other than that "nothing else to do" per Dr. Nunez. Cooling measures done and gave a dose of Tylenol. 1700: temp is down 99.8 and HR is 111. New PICC placed on JUMA, tip of old PICC was sent for culture. Received a call from Dr. Brandon/Radiology to push down ETT by 5 cm (from PICC placement CXR). RT was informed, verified that ETT is still secured at 23 cm on the lip. Per Reed RT, Xray appears that pt's neck is hyperextended. Will reevaluate placement with ben's xray. Pt is currently getting enough volume on the vent 400-500L. < still has about 60 cc of TF residual, kept TF on hold for now. Will give report to shift mechanic RN.
--- NOTE | 2020-01-18 19:15 | NUR ---
MANAGER SEARCH ENGINE RCD PT W/DX RESP FAIL; PT IS COVID +. SEDATED ON PROPOFOL @ 60 MCG/KG/MIN. ST ON MONITOR. INTUBATED 7.5 @ 23 W/VENT SETTINGS AC 22 500 50% +5. PT HAS BLOOD TINGED SECRETIONS. OG TUBE IN PLACE RESUMED TUBE FEEDING AT 20 ML/HR ON HOLD EARLIER D/T RESIDUAL. GORDON CATH IN PLACE DRAINING CLEAR YELLOW URINE. SACRAL DTI NOTED AND LEFT HAND SKIN TEAR. PICC LINE TO JUMA OCHOATHOMPSON. NS @ 75 ML/HR; YUN @ 2 MCG/KG/MIN. ALL PROCEDURES, TRACH AND DEBRIDEMENT ON HOLD D/T HEMODYNAMIC INSTABILITY. CONTINUE TO MONITOR. Addendum: 01/20/20 at 0303 by HILLARY SILVERMAN RN RIGHT NARE NG TUBE
--- NOTE | 2020-01-18 19:30 | NUR ---
BACK UP SCAN COORDINATOR NON ADMIT STK MEDS.
[2020-01-18] MEDS: IV NS 0.9% 1,000 ML IV PRN (19:32)
--- NOTE | 2020-01-18 19:32 | NUR ---
GOLD MINER BLASTING NS @ 75 ML/HR RUNNING NOT PREVIOUSLY SCANNED.
[2020-01-18] MEDS: GLUCERNA 1.2 1,000 ML BOTTLE GT PRN (19:33)
[2020-01-18] MEDS: PIPERACILLIN /TAZOBACTAM 3.375 G in IV D5W 50 ML IV SCH (21:30)
--- NOTE | 2020-01-18 22:40 | NUR ---
SIDEROGRAPHER PT NOTED WITH INCREASED HR AND GRIMACING AFTER REPOSITIONING; NORCO 5/325 GIVEN AT THIS TIME. CONTINUE TO MONITOR.
[2020-01-18] MEDS: HYDROCODONE/APAP 5/325MG 1 EACH TABLET PO PRN (22:41)
[2020-01-19] VITALS (86 sets, daily range): BP systolic 61–160; BP diastolic 36–87
--- NOTE | 2020-01-19 | NUR ---
WAFER SUBSTRATE TESTER GLUCERNA @ 20 ML/HR GASTRIC RESIDUAL 100 ML; TUBE FEEDING ON HOLD AT THIS TIME. CONTINUE TO MONITOR. BLOOD GLUCOSE 187; 4 UNITS REGULAR INSULIN SQ.
--- NOTE | 2020-01-19 02:00 | NUR ---
HOUSEHOLD COORDINATOR NO RESIDUAL AT THIS TIME; TUBE FEEDING RESTARTED. CONTINUE TO MONITOR.
[2020-01-19] MEDS: PROPOFOL 100 ML IV PRN ×6 (03:32→23:35)
[2020-01-19] MEDS: PIPERACILLIN /TAZOBACTAM 3.375 G in IV D5W 50 ML IV SCH ×4 (03:32→20:00)
[2020-01-19 04:11] LABS: BASOPHILS % (AUTO) 0.1 % (0.0-2.0); CALCIUM, SERUM 7.9 mg/dL (8.5-10.1); CREATININE 0.6 mg/dL (0.6-1.3); HEMATOCRIT 27 % (39-51); HEMOGLOBIN 8.8 g/dL (13.5-17.5); LYMPHOCYTES # (AUTO) 0.5 /CMM (0.8-4.8); MAGNESIUM 1.6 mg/dL (1.8-2.4); MEAN CORPUSCULAR HGB CONC 32 g/dl (31.0-36.0); MEAN CORPUSCULAR VOLUME 94 fL (80-96); MONOCYTES # (AUTO) 0.3 /CMM (0.1-1.30); MONOCYTES % (AUTO) 3.7 % (2.0-12.0); NEUTROPHILS # (AUTO) 8.1 /CMM (1.8-8.9); NEUTROPHILS % (AUTO) 90.2 % (43.0-81.0); PLATELET COUNT (AUTO) 176 /CMM (150-450); POTASSIUM 3.6 mmol/L (3.5-5.1)
--- NOTE | 2020-01-19 05:20 | NUR ---
PACKING MACHINE CAN FEEDER PT REINTUBATED 7.5 @ [address] STRONG. RT AT BEDSIDE ATTEMPTING TO SUCTION PT; MET RESISTANCE AND PT BEGAN TO DESATURATE. CODE BLUE CALLED FOR REINTUBATION. CXR DONE TO CONFIRM PLACEMENT.
--- NOTE | 2020-01-19 05:49 | NUR ---
RT while doing rounds, pt's hinds did not advance down ett. during previous checks, hinds advanced with no issues. due to the difficulty of passing the hinds, another rt was asked to try. the rt also had difficulty passing the hinds. whilst assessing the pt, pt began desating. spo2 was down to 70%. code blue was called. while attempting to bag the pt, there was a lot of resistance. er md arrived and extubated and reintubated the pt. within the ett was a mucus plug. ett size is 7.5 at 23@lip. previous settings applied: AC 22 500 50% +5
[2020-01-19] MEDS: BLOOD SUGAR DIAGNOSTIC 1 EACH STRIP IN SCH ×4 (06:13→23:35)
--- NOTE | 2020-01-19 07:30 | NUR ---
RECEIVED PATIENT IN BED. NO ACUTE DISTRESS NOTED. PATIENT INTUBATED (RE-INTUBATED 01/18), CORRECT PLACEMENT CONFIRMED WITH XRAY, AND ON MECHANICAL VENTILATOR, OXYGEN SATURATION AT 100%. PATIENT ON DIPRIVAN DRIP, SEDATED. PATIENT ON WARDROBE STYLIST, NORMAL SINUS RHYTHM NOTED. PATIENT LEFT UPPER ARM PICC LINE IN PLACE, INTACT, PATENT, FLUSHED WELL. PATIENT NG-TUBE IN PLACE, INTACT, PATENT, RESIDUAL 30CC NOTED. PATIENT GORDON CATHETER IN PLACE, PATENT, DRAINING TO GRAVITY. PATIENT SAFETY MAINTAINED. WILL CONTINUE TO MONITOR. LABS REVIEWED, MD NOTIFIED, NEW ORDERS RECEIVED.
[2020-01-19] MEDS: IV NS 0.9% 1,000 ML IV PRN ×2 (07:47→23:35)
[2020-01-19 08:13] LABS: ABG BASE EXCESS -0.7 mmol/L; ABG OXYGEN SATURATION 97.9 % (92.0-98.5); ABG PCO2 33.4 mmHg (35.0-45.0); ABG PH 7.455 (7.350-7.450); ABG PO2 101.5 mmHg (75.0-100.0); AaDO2 217.4 mmHg; COHb 0.7 % (0.5-1.5); O2Hb 97.2 % (94.0-97.0); SITE, ABG Right Radial; VENT MODE, BG AC 22 500 50% +5
[2020-01-19] MEDS: HYDROCORTISONE SOD SUCCINATE 100 MG/2 ML VIAL IV SCH ×3 (08:30→16:57)
[2020-01-19] MEDS: METFORMIN 500 MG TABLET PO SCH ×2 (08:30→16:57)
[2020-01-19] MEDS: Magnesium 1GM/D5W 100ML PREMIX 100 ML IV SCH ×2 (08:30→09:37)
[2020-01-19] MEDS: ENOXAPARIN SODIUM 40 MG/0.4 ML DISP.SYRIN SQ SCH (08:31)
[2020-01-19] MEDS: DAKINS QUARTER STRENGTH (0.125%) 480 ML BOTTLE TOP SCH (08:34)
[2020-01-19] MEDS: FLUCONAZOLE (100 MG) 100 MG TABLET PO SCH (08:34)
[2020-01-19] MEDS: PROSOURCE / PROSTAT (PYXIS) 30 ML UDC GT SCH ×3 (08:35→16:57)
[2020-01-19] MEDS: GLUCERNA 1.2 1,000 ML BOTTLE GT PRN (08:37)
--- NOTE | 2020-01-19 09:30 | NUR ---
ICU/RN DUE MEDS ARE GIVEN ORDERED. BP DECREASED, PHENYLEPHRINE RESTARTED. SUCTION PROVIDED. PATIENT HAS THICK, PINK SECRETIONS. REPOSITIONED FOR COMFORT.
[2020-01-19] MEDS: PHENYLEPHRINE 100 MG in IV NS 0.9% 240 ML IV PRN (09:49)
[2020-01-19] MEDS: INSULIN REGULAR, HUMAN 100 UNIT/ML 3 ML VIAL SQ PRN ×2 (12:24→17:43)
--- NOTE | 2020-01-19 18:23 | NUR ---
PATIENT IN BED. NO ACUTE DISTRESS NOTED. PATIENT INTUBATED, AND ON MECHANICAL VENTILATOR, OXYGEN SATURATION AT 100%. PATIENT ON DIPRIVAN DRIP, SEDATED. PATIENT ON LIFE ENRICHMENT DIRECTOR, NORMAL SINUS RHYTHM NOTED. PATIENT LEFT UPPER ARM PICC LINE IN PLACE, INTACT, PATENT, FLUSHED WELL. PATIENT NG-TUBE IN PLACE, TOLERATING FEEDING WELL, INTACT, PATENT. PATIENT GORDON CATHETER IN PLACE, PATENT, DRAINING TO GRAVITY. ABGs DONE IN THE MORNING, AC CHANGED TO 16. WOUND CARE DONE ORDERED. PATIENT PHENYLEPHRINE INFUSING AT 1MCG/KG/MIN. PATIENT IS AFEBRILE, NO PAIN REPORTED AT THIS TIME. WILL ENDORSE PLAN OF CARE TO ONCOMING NURSE FOR CONTINUITY OF CARE.
--- NOTE | 2020-01-19 19:15 | NUR ---
CERTIFIED SHORTHAND REPORTER RCD PT W/DX RESP FAIL; PT IS COVID +. SEDATED ON PROPOFOL @ 50 MCG/KG/MIN. NSR ON MONITOR W/BBB. INTUBATED 7.5 @ 23 W/VENT SETTINGS AC 18 500 50% +5. PT HAS BLOOD TINGED SECRETIONS. RIGHT NARE NG TUBE IN PLACE W/TUBE FEEDING AT 20 ML/HR. GORDON CATH IN PLACE DRAINING CLEAR YELLOW URINE. SACRAL DTI NOTED AND LEFT HAND SKIN TEAR. PICC LINE TO JUMA PATENT. NS @ 75 ML/HR; YUN @ 1 MCG/KG/MIN. ALL PROCEDURES, TRACH AND DEBRIDEMENT ON HOLD D/T HEMODYNAMIC INSTABILITY. CONTINUE TO MONITOR.
--- NOTE | 2020-01-19 23:40 | NUR ---
RT NOTE Pt rec'd orally intubated via ETT sz #7.5 secured @ 23 cm at the lipline. Pt on [facility] vent on AC mode settings as charted. Pt shows no signs of resp distress and sob. Pt sx'd for mod amt of thick pale yellow secretions. Alarms are set and audible. Ambu bag is bedside. Vent plugged into red outlet. Will continue to monitor. Addendum: 01/19/20 at 2341 by LIZETH DAHL RT Amended: Links added.
[2020-01-20] VITALS (101 sets, daily range): BP systolic 63–170; BP diastolic 32–99
[2020-01-20] MEDS: PROPOFOL 100 ML IV PRN ×5 (01:59→19:40)
[2020-01-20] MEDS: PIPERACILLIN /TAZOBACTAM 3.375 G in IV D5W 50 ML IV SCH ×4 (02:00→20:58)
[2020-01-20] MEDS: HYDROCODONE/APAP 5/325MG 1 EACH TABLET PO PRN (02:09)
--- NOTE | 2020-01-20 03:50 | NUR ---
CRANE ENGINEER PT NOTED TO DESATURATE TO 83% WHILE SUPINE DURING BED BATH. RT NOTIFIED WITH INCREASE TO FI02 TO 705. CONTINUE TO MONITOR.
[2020-01-20 04:43] LABS: BASOPHILS % (AUTO) 0.2 % (0.0-2.0); EOSINOPHILS % (AUTO) 0.1 % (0.0-6.0); HEMATOCRIT 31 % (39-51); HEMOGLOBIN 9.8 g/dL (13.5-17.5); LYMPHOCYTES # (AUTO) 0.8 /CMM (0.8-4.8); LYMPHOCYTES % (AUTO) 5.4 % (20.0-44.0); MEAN CORPUSCULAR HGB CONC 32 g/dl (31.0-36.0); MEAN CORPUSCULAR VOLUME 94 fL (80-96); MONOCYTES # (AUTO) 0.6 /CMM (0.1-1.30); MONOCYTES % (AUTO) 4.1 % (2.0-12.0); NEUTROPHILS # (AUTO) 12.7 /CMM (1.8-8.9); NEUTROPHILS % (AUTO) 90.2 % (43.0-81.0); PLATELET COUNT (AUTO) 254 /CMM (150-450); RED BLOOD CELL COUNT(AUTO) 3.25 MIL/uL (4.5-6.0); WHITE BLOOD COUNT (AUTO) 14.1 K/uL (4.3-11.0)
[2020-01-20 05:13] LABS: CALCIUM, SERUM 8.1 mg/dL (8.5-10.1); CREATININE 0.8 mg/dL (0.6-1.3); MAGNESIUM 2.1 mg/dL (1.8-2.4); PHOSPHORUS 4.2 mg/dL (2.5-4.9); POTASSIUM 3.4 mmol/L (3.5-5.1)
[2020-01-20] MEDS: BLOOD SUGAR DIAGNOSTIC 1 EACH STRIP IN SCH ×3 (05:37→17:10)
--- NOTE | 2020-01-20 06:26 | NUR ---
EYE SPECIALIST PT SATURATION 88% RT AT BEDSIDE INCREASED FIO2 TO 100%.
--- NOTE | 2020-01-20 07:35 | NUR ---
ICU/RN PT IS INTUBATED ON THE VENT AC MODE,FIO2-100%,SAT O2-97%.SEDATED ON DIPRIVAN DRIP.ON PHENYLEPHRINE DRIP.LEFT UPPER ARM PICC LINE .RIGHT NG TUBE INFUSING WITH GLUCERNA AT 30 ML/HR ,NO RESIDUAL NOTED.F/C DRAINING WITH CLOUDY YELLOW URINE.GENERALIZED WEEPING EDEMA PRESENT, SACRAL WOUND COVERED WITH CLEAN DRESSING .SUCTION PROVIDED.REPOSITION FOR COMFORT.LABS REVIEW K-3.4. NOTIFIED.CONTINUE MONITORING.
[2020-01-20] MEDS: PHENYLEPHRINE 100 MG in IV NS 0.9% 240 ML IV PRN ×2 (07:58→21:42)
[2020-01-20 08:12] LABS: ABG BASE EXCESS -7.8 mmol/L; ABG OXYGEN SATURATION 99.4 % (92.0-98.5); ABG PCO2 42.9 mmHg (35.0-45.0); ABG PO2 280.9 mmHg (75.0-100.0); AaDO2 389.2 mmHg; COHb 0.6 % (0.5-1.5); O2Hb 98.8 % (94.0-97.0); PEEP,BG 5 cm H2O; SITE, ABG Right Radial; VT, ABG 500 mL
[2020-01-20] MEDS: HYDROCORTISONE SOD SUCCINATE 100 MG/2 ML VIAL IV SCH ×3 (08:26→16:29)
[2020-01-20] MEDS: FLUCONAZOLE (100 MG) 100 MG TABLET PO SCH (08:26)
[2020-01-20] MEDS: METFORMIN 500 MG TABLET PO SCH ×2 (08:26→16:29)
[2020-01-20] MEDS: ENOXAPARIN SODIUM 40 MG/0.4 ML DISP.SYRIN SQ SCH (08:28)
[2020-01-20] MEDS: DAKINS QUARTER STRENGTH (0.125%) 480 ML BOTTLE TOP SCH (08:28)
[2020-01-20] MEDS: PROSOURCE / PROSTAT (PYXIS) 30 ML UDC GT SCH ×3 (08:29→16:29)
[2020-01-20] MEDS ORDERED: POTASSIUM CHLORIDE 20 MEQ POWDER PACKET GT ONE (10:00)
--- NOTE | 2020-01-20 10:00 | NUR ---
ICU/RN DUE MEDS ARE GIVEN ORDERED. ABG DONE.MD NOTIFIED.VENT CHANGING DONE TV INCREASED TO 550,FIO2-60%. PT HEART RATE INCREASED TO 135 BPM.PT IS NOT STABLE FOR SEDATION VACATION.K-3.4 .REPLACED WITH 40 MEQ K-MARGARITA VIA NG TUBE ORDERED.SUCTION PROVIDED.REPOSITION FOR COMFORT.
[2020-01-20] MEDS: PANTOPRAZOLE 40 MG VIAL IV SCH (10:40)
[2020-01-20] MEDS: GLUCERNA 1.2 1,000 ML BOTTLE GT PRN (11:25)
[2020-01-20] MEDS: INSULIN REGULAR, HUMAN 100 UNIT/ML 3 ML VIAL SQ PRN ×3 (13:04→17:11)
[2020-01-20] MEDS: IV NS 0.9% 1,000 ML IV PRN (13:05)
--- NOTE | 2020-01-20 13:30 | NUR ---
ICU/RN PT SAT O2 DECREASED TO 88%,SOB,BP DECREASED HR INCREASED TO 135 BPM .SUCTION PROVIDED,REPOSITION FOR COMFORT.RT AT BEDSIDE. FIO2 INCREASED TO 100%.PHENYLEPHRINE DRIP INCREASED.CONTINUE MONITORING.
--- NOTE | 2020-01-20 17:15 | NUR ---
ICU/RN PM CARE PROVIDED.WOUND DRESSING DONE ORDERED.DUE MEDS ARE GIVEN BS-160.PT SAT O2 DECREASED WITH EVERY MOVEMENTS AND HR INCREASED. SO STILL ON 100% FIO2.AND NEOSYNEPHRINE DRIP.CONTINUE MONITORING.GENERALIZED EDEMA PRESENT ,URINE OUTPUT DECREASED.
--- NOTE | 2020-01-20 19:45 | NUR ---
ICU/BINDER AND BOX BUILDER REPORT RECEIVED FROM THE TO DAY NURSE. SEE FLOWSHEET FOR ASSESSMENT, SKIN ISSUES ARE ADDRESSED ON FLOWSHEET ALONG WITH INTERVENTION TO EACH. PT PROPERLY SEDATED WITH DIPRIVAN AT 50MCG. PT ORALLY INTUBATED WITH SATURATION AT 95'S%. WILL MONITOR THIS PT AND HIS SATURATION. PT WAS TURNED AND REPOSITIONED FOR COMFORT AND CARE. NO ACUTE DISTRESS SEEN AT THIS TIME, WILL CONTINUE TO MONITOR THIS PT.
--- NOTE | 2020-01-20 21:00 | NUR ---
ICU/NECK BAND SETTER TALKED WITH FAMILY MEMBERS, ANSWERED QUESTIONS. HOWEVER IS ASKING ABOUT SECOND ROUND OF CONVALESCENT PLASM AND THE PT'S OUTCOME. UNABLE TO FIND ORDER, HOWEVER PT IS CURRENTLY STABLE ON CURRENT PRESSOR AND SEDATION. FAMILY SAID OF.
--- NOTE | 2020-01-20 22:30 | NUR ---
ICU/ENGINEER FIRST ASSISTANT PT'S SON CALLED ASKED ABOUT THE PLASM CONVALESCENT, ASKED WHY PT HAS NOT GOTTEN IT. UNABLE TO FIND ANY DOCUMENTATION WHILE ON THE PHONE, TOLD SON TO CALL BACK WHILE I LOOK FOR ANY DOCUMENTATION OF THIS. THIS WAS MENTIONED BY KHOA MARTINEZ [facility] on 01/20/20 @ 14:18 "Talked to patient's son [place] over the phone [phone] Family requesting for second unit of convalescent plasma to be transfused Will defer to ID and manuscripts curator to decide if patient meets criteria"
[2020-01-21] VITALS (72 sets, daily range): BP systolic 43–196; BP diastolic 17–117
[2020-01-21] MEDS: PROPOFOL 100 ML IV PRN ×2 (00:01→03:42)
[2020-01-21] MEDS: BLOOD SUGAR DIAGNOSTIC 1 EACH STRIP IN SCH ×4 (00:23→17:21)
[2020-01-21] MEDS: INSULIN REGULAR, HUMAN 100 UNIT/ML 3 ML VIAL SQ PRN ×4 (00:25→17:18)
[2020-01-21] MEDS ORDERED: NOREPINEPHRINE 4 MG/4 ML AMPUL IV ONE (01:24)
--- NOTE | 2020-01-21 01:24 | NUR ---
ICU/BRANCH OPERATION EVALUATION MANAGER SECOND PRESSOR STARTED DUE TO BLOOD PRESSURE LOW IN THE 50'S TO 70'S. CHARGE NURSE MADE AWARE OF THIS, MIX BAG TO HANG UP. ALSO AT THIS TIME THERE IS NO URINE OUTPUT, CHARGE NURSE MADE AWARE OF THIS.
[2020-01-21] MEDS: NOREPINEPHRINE 32 MG in IV NS 0.9% 218 ML IV PRN (01:34)
--- NOTE | 2020-01-21 02:10 | NUR ---
ICU/STEAM BRUSH OPERATOR PT'S BLOOD PRESSURE IS LOW WITH 2 PRESSORS, FAMILY CALLED ABOUT CODE STATUS, EXPLAIN SITUATION TO FAMILY. THEY AGREED TO CHANGE CODE TO DNR. CHARGE NURSE WAS THE PERSON WHO TALKED WITH FAMILY AND CHANGED STATUS.
--- NOTE | 2020-01-21 02:45 | NUR ---
ICU/COMMISSIONER CONSERVATION OF RESOURCES FAMILY OF [place] CAME TO ER ASKED TO COME UP, PT IS NOW ON 2 PRESSORS. CALLED HOUSE SUP. SAID IT WAS OK. THEN FAMILY CAME UP, IT WAS CHARGE NURSE AND TOPOGRAPHY TECHNICIAN THAT GAVE ITEMS TO FAMILY MEMBERS TO GO IN ROOM. PT IS CURRENTLY COVID POSITIVE, REMINDED CHARGE NURSE ABOUT THIS, HOWEVER IN FRONT OF FAMILY CHARGE NURSE SAID IT WAS OK.
[2020-01-21] MEDS: PIPERACILLIN /TAZOBACTAM 3.375 G in IV D5W 50 ML IV SCH ×3 (03:08→14:04)
[2020-01-21] MEDS: IV NS 0.9% 1,000 ML IV PRN ×2 (03:11→17:17)
--- NOTE | 2020-01-21 04:10 | NUR ---
ICU/GORE MAKER WAS DIFFICULT GETTING BLOOD PRESSURE, ON FLOWSHEET THERE WAS TITRATION OF BOTH LEVO AND YUN BY CHARGE NURSE. SEE IV SPREAD SHEET FOR TITRATION.
[2020-01-21 05:03] LABS: BASOPHILS % (AUTO) 0.2 % (0.0-2.0); HEMATOCRIT 31 % (39-51); HEMOGLOBIN 9.7 g/dL (13.5-17.5); LYMPHOCYTES # (AUTO) 0.8 /CMM (0.8-4.8); LYMPHOCYTES % (AUTO) 6.8 % (20.0-44.0); MEAN CORPUSCULAR HGB CONC 31 g/dl (31.0-36.0); MEAN CORPUSCULAR VOLUME 96 fL (80-96); MONOCYTES # (AUTO) 0.6 /CMM (0.1-1.30); MONOCYTES % (AUTO) 5.3 % (2.0-12.0); NEUTROPHILS # (AUTO) 10.6 /CMM (1.8-8.9); NEUTROPHILS % (AUTO) 87.7 % (43.0-81.0); PLATELET COUNT (AUTO) 241 /CMM (150-450); RED BLOOD CELL COUNT(AUTO) 3.22 MIL/uL (4.5-6.0); WHITE BLOOD COUNT (AUTO) 12.1 K/uL (4.3-11.0)
[2020-01-21 05:12] LABS: CALCIUM, SERUM 7.7 mg/dL (8.5-10.1); CARBON DIOXIDE 18 mmol/L (21-32); CHLORIDE 106 mmol/L (98-107); CREATININE 1.3 mg/dL (0.6-1.3); GLUCOSE 243 mg/dL (74-106); POTASSIUM 3.4 mmol/L (3.5-5.1); SODIUM SERUM 142 mmol/L (136-145); UREA NITROGEN, BLOOD 40 mg/dL (7-18)
--- NOTE | 2020-01-21 06:47 | NUR ---
ICU/PATCH FINISHER CHARGE NURSE TOOK OVER IV FLOWSHEET AFTER THIS PT REQUIRED FREQUENT CHANGES AND ADJUSTMENT TO THE FLOWSHEET.
--- NOTE | 2020-01-21 07:15 | NUR ---
RN INITIAL NOTES RECEIVED PT INTUBATED, ON VENT. NO RESPIRATORY DISTRESS NOTED. NO SOB NOTED. NO SIGNS OF PAIN NOTED. HOB ELEVATED. RIGHT NGT IN PLACE. TOLERATING TUBE FEEDING WELL. JUMA PICC IN PLACE. ON YUN AT 3MCG/KG/MIN. IVF INFUSING. FC IN PLACE. BLE ELEVATED. WILL MONITOR
[2020-01-21] MEDS: HYDROCORTISONE SOD SUCCINATE 100 MG/2 ML VIAL IV SCH ×3 (08:36→16:37)
[2020-01-21] MEDS: METFORMIN 500 MG TABLET PO SCH ×2 (08:36→16:37)
[2020-01-21] MEDS: FLUCONAZOLE (100 MG) 100 MG TABLET PO SCH (08:36)
[2020-01-21] MEDS: PROSOURCE / PROSTAT (PYXIS) 30 ML UDC GT SCH ×3 (08:37→16:37)
[2020-01-21] MEDS: DAKINS QUARTER STRENGTH (0.125%) 480 ML BOTTLE TOP SCH (08:37)
[2020-01-21] MEDS: ENOXAPARIN SODIUM 40 MG/0.4 ML DISP.SYRIN SQ SCH (08:38)
[2020-01-21 08:49] LABS: ABG BASE EXCESS -10.4 mmol/L; ABG OXYGEN SATURATION 93.7 % (92.0-98.5); ABG PCO2 46.4 mmHg (35.0-45.0); ABG PH 7.192 (7.350-7.450); ABG PO2 78.1 mmHg (75.0-100.0); AaDO2 588.5 mmHg; COHb 0.3 % (0.5-1.5); MetHb 0.1 % (0.0-1.5); O2Hb 93.3 % (94.0-97.0); SITE, ABG Right Radial
--- NOTE | 2020-01-21 09:30 | NUR ---
PER MD ORDER ETT PUSHED ON AND SECURED AT 26CM AT THE LIP
--- NOTE | 2020-01-21 09:45 | NUR ---
RT PER DR VÁSQUEZ VENT SETTINGS CHANGED TO AC 24, 600, 100% +5. Addendum: 01/21/20 at 1159 by BASSAM PEREIRA RT Amended: Links added.
--- NOTE | 2020-01-21 09:45 | NUR ---
RN NOTES SEEN AND EXAMINED BY DR VÁSQUEZ. AWARE OF ABG RESULT. ETT ADVANCED. CXR ORDERED FOR FF UP. MD ORDERED VENT SETTINGS CHANGES. WILL CLOSELY MONITOR
[2020-01-21] MEDS: PANTOPRAZOLE 40 MG VIAL IV SCH (10:06)
[2020-01-21] MEDS ORDERED: POTASSIUM CHLORIDE 20 MEQ POWDER PACKET GT ONE (13:00)
--- NOTE | 2020-01-21 13:00 | NUR ---
RN NOTES SEEN AND EXAMINED BY SOCORRO FRY NP. AWARE OF LAB VALUES AND CXR RESULT. CODE STATUS CHANGED TO DNR. ON YUN DRIP, WILL TITRATE ORDERED. WILL CLOSELY MONITOR
[2020-01-21] MEDS: GLUCERNA 1.2 1,000 ML BOTTLE GT PRN (14:46)
[2020-01-21] MEDS ORDERED: PHENYLEPHRINE 100 MG in IV NS 0.9% 240 ML IV PRN (15:00)
[2020-01-21] MEDS: ACETAMINOPHEN 325 MG TABLET PO PRN (16:37)
--- NOTE | 2020-01-21 18:47 | NUR ---
RN CLOSING NOTES NO SIGNIFICANT CHANGES NOTED. REMAINS INTUBATED, ON VENT. NO RESPIRATORY DISTRESS NOTED. YUN OFF AT 1700. TX ORDERED. KEPT CLEAN AND DRY. REPOSITIONING WHEN ABLE. WILL ENDORSE FOR CONTINUITY OF CARE.
--- NOTE | 2020-01-21 19:30 | NUR ---
RN NOTES RECEIVED PATIENT IN BED INTUBATED ON VENTILATOR, VENT SETTING TOLERATING WELL ORDERED. NO S/S OF DISTRESS NOTED RESPIRATION EVEN NON LABORED. TELE MONITOR READING ST IN 140'S. JUMA PICC LINE INTACT PATENT FLUSHES WELL. RT NARE NG TUBE IN PLACE. F/C INTACT NO URINE NOTED. SAFETY MEASURES IN PLACE, CALL LIGHT WITHIN REACH. SIDE RAILS UP. WILL CONT TO MONITOR FOR KEN.
--- NOTE | 2020-01-21 20:07 | NUR ---
RN NOTES PATIENT NOTED WITH AGONAL BREATHING, SEVERE MALIKA FINALLY TO STRAIGHT LINE NO HEART BEAT,NO PULSES ON MAJOR ARTERIES, NO BREATH SOUNDS, PUPILS ARE FIXED AND DILATED. NO GAG OR CORNEAL REFLEXES NOTED. PATIENT PRONOUNCED BY ICU CHARGE NURSE "ED" AT 2006.
--- NOTE | 2020-01-21 23:00 | NUR ---
RN NOTES CARE DONE. BODY PICKED UP AT 2300.
== END 2020-01-21 20:07 | disposition expired | DRG 720 ==
LOC: ER 07:19 → TELE1 09:39 → ICU 12-15 01:06
PROVIDERS: ADMIT Internal Medicine; ATTEND Nurse Practitioner Acute Care
PROC: 5A1955Z Respiratory Ventilation, Greater than 96 Consecutive Hours (ICD-10-PCS; principal; 2019-12-15)
PROC: 0BH17EZ Insertion of Endotracheal Airway into Trachea, Via Natural or Artificial Opening (ICD-10-PCS; principal; 2019-12-15)
PROC: 02HV33Z Insertion of Infusion Device into Superior Vena Cava, Percutaneous Approach (ICD-10-PCS; 2019-12-19)
PROC: B548ZZA Ultrasonography of Superior Vena Cava, Guidance (ICD-10-PCS; 2019-12-19)
PROC: 30233L1 Transfusion of Nonautologous Fresh Plasma into Peripheral Vein, Percutaneous Approach (ICD-10-PCS; 2019-12-26)
PROC: 0B21XEZ Change Endotracheal Airway in Trachea, External Approach (ICD-10-PCS; 2020-01-19)
PROC: B548ZZA Ultrasonography of Superior Vena Cava, Guidance (ICD-10-PCS; 2020-01-21)
PROC: 02HV33Z Insertion of Infusion Device into Superior Vena Cava, Percutaneous Approach (ICD-10-PCS; 2020-01-21)
DX: A41.89 Other specified sepsis (principal); J96.01 Acute respiratory failure with hypoxia; U07.1 COVID-19; Z66 Do not resuscitate; N17.0 Acute kidney failure with tubular necrosis; E43 Unspecified severe protein-calorie malnutrition; J12.89 Other viral pneumonia; E11.9 Type 2 diabetes mellitus without complications; E87.1 Hypo-osmolality and hyponatremia; M54.9 Dorsalgia, unspecified; G89.29 Other chronic pain; Z79.84 Long term (current) use of oral hypoglycemic drugs; E86.1 Hypovolemia; E87.6 Hypokalemia; E83.42 Hypomagnesemia; E83.39 Other disorders of phosphorus metabolism; E78.1 Pure hyperglyceridemia; E86.0 Dehydration; I21.4 Non-ST elevation (NSTEMI) myocardial infarction; G93.40 Encephalopathy, unspecified; I25.2 Old myocardial infarction; D64.9 Anemia, unspecified; B37.49 Other urogenital candidiasis; I47.1 Supraventricular tachycardia; I82.A11 Acute embolism and thrombosis of right axillary vein; I82.621 Acute embolism and thrombosis of deep veins of right upper extremity; R65.21 Severe sepsis with septic shock; I21.A1 Myocardial infarction type 2; T79.7XXA Traumatic subcutaneous emphysema, initial encounter; X58.XXXA Exposure to other specified factors, initial encounter; Y92.89 Other specified places as the place of occurrence of the external cause; J81.1 Chronic pulmonary edema; J90 Pleural effusion, not elsewhere classified; L89.159 Pressure ulcer of sacral region, unspecified stage; L89.899 Pressure ulcer of other site, unspecified stage; Y95 Nosocomial condition; Z79.4 Long term (current) use of insulin; Z86.711 Personal history of pulmonary embolism; Z86.718 Personal history of other venous thrombosis and embolism
CPT/HCPCS: 31720; 36415; 36569; 36600; 71045-TC; 80048-TC; 80053-TC; 80061-TC; 80076-TC; 80202-TC; 81000-TC; 82533; 82550-TC; 82570-TC; 82728-TC; 82803-TC; 82962-TC; 83605-TC; 83615-TC; 83735-TC; 83880; 83935-TC; 84100-TC; 84132-TC; 84155-TC; 84300-TC; 84443-TC; 84478-TC; 84484-TC; 84550-TC; 85025-TC; 85385-TC; 85396; 85610-TC; 85730-TC; 86140-TC; 86850-TC; 87040-TC; 87070-TC; 87081-TC; 87086-TC; 87186-TC; 93308-TC; 93971-TC; 94002-TC; 94003-TC; 94640-TC; 94760-TC; 94799-TC; A4216; A4217; A6253; A6403; A7526; C1751; C1769; C9113; G0378; J0153; J0290; J0456; J0692; J0696; J1100; J1650; J1720; J1815; J1940; J2185; J2370; J2543; J3370; J3475; J3480; J3490; J7030; J7040; J7042; J7050; J7060; P9017-BL; U0003-CS